=== PATIENT | male | born 1970 | race Caucasian/White ===

== ENCOUNTER 2019-07-07 19:45 | Observation (INO) | payer OTHER, SELFPAY ==
--- NOTE | ~2019-07-07 | XR_ITS ---
EXAMINATION: XR chest 1V portable 07/07/2019 20:24 INDICATION: Right-sided weakness PROCEDURE: AP view of the chest COMPARISON: No prior studies for comparison. FINDINGS: The lungs are clear. The cardiomediastinal silhouette is within normal limits. There are no pleural effusions. There is no pneumothorax suspected. IMPRESSION: 1: NO ACUTE CARDIOPULMONARY DISEASE. Reviewed, dictated and finalized at location A.
--- NOTE | ~2019-07-07 | CT_ITS ---
EXAMINATION: CTA brain carotid DATE: 07/07/2019 22:49 CDT INDICATION: Right-sided weakness TECHNIQUE: Computed tomographic angiography (CTA) of the head was performed without and with 100 mL O mnipaque-350 intravenous contrast. CTA of the neck was performed with intravenous contrast. The dose- length product was 1216.18 mGy-cm. Maximum intensity projection and volume rendered 3D-reconstruction s were created by the technologist on a separate workstation. COMPARISON: CT dated 07/07/2019. FINDINGS: HEAD CTA: There are dominant vertebral arteries. No evidence for aortic aneurysm or significant steno sis the anterior, middle and posterior cerebral arteries are symmetric. The anterior communicating ar vasu is present. NECK CTA: No cervical lymphadenopathy. There is normal course and caliber of the carotid arteries. No significant atherosclerotic change. Lung apices are normal. Thyroid gland is unremarkable. No signif icant osseous abnormality. There is 0% stenosis of the proximal right internal carotid artery relative to normal distal artery l umen diameter (NASCET criteria). There is 0% stenosis of the proximal left internal carotid artery re lative to normal distal artery lumen diameter. IMPRESSION: 1. No significant abnormality of the carotid or intracranial arteries. No significant stenosis, disse ction or aneurysm. Reviewed, dictated and finalized at location A. IMPRESSION: 1. No significant abnormality of the carotid or intracranial arteries. No signi ficant stenosis, dissection or aneurysm.
--- NOTE | ~2019-07-07 | MR_ITS ---
EXAMINATION: MR brain/brain stem wo/w con DATE: 07/08/2019 12:56 INDICATION: Right-sided hemiparesis TECHNIQUE: Magnetic resonance imaging (MRI) of the brain and brainstem was performed without and with 20 mL Multihance intravenous contrast. Sequences included sagittal and axial T1-weighted SE, axial d iffusion-weighted FS SE, axial T2*-weighted GRE, axial T2-weighted FLAIR, and axial T2-weighted FSE. Postcontrast axial and coronal T1-weighted SE was obtained. Apparent diffusion coefficient (ADC) maps were created. COMPARISON: 07/07/2019 FINDINGS: There are no areas of restricted diffusion to suggest acute infarction. No intracranial hemorrhage or abnormal intracranial mass lesion. There are scattered areas of nonspecific increased T2-weighted si gnal intensity in the cerebral white matter, predominantly involving the deep and periventricular whi te matter. There are no intraparenchymal signal abnormalities seen on the other pulse sequences. The ventricles are symmetric and normal in size with normal variant cavum septum pellucidum. There are no abnormal extra-axial fluid collections. Flow voids are seen in the cerebral arteries on the T2-weigh venu sequences consistent with their expected patency. Mild mucosal thickening the bilateral ethmoid a nd maxillary sinuses with mucous retention cyst at the floor of the right maxillary sinus. Visualized orbits and soft tissues are unremarkable. There are no areas of abnormal enhancement on the post con trast images. IMPRESSION: 1. Normal brain. No acute intracranial process or abnormally enhancing lesions. Reviewed, dictated and finalized at location A.
--- NOTE | ~2019-07-07 | CT_ITS ---
EXAMINATION: CT BRAIN W/O DATE: 07/07/2019 20:20 INDICATION: Right-sided weakness TECHNIQUE: Computed tomography (CT) of the head was performed without intravenous contrast. The dose- length product was 681.00 mGy-cm. The mA was adjusted according to patient size. Iterative reconstruc tion technique was employed. COMPARISON: No prior studies for comparison. FINDINGS: Normal brain parenchymal volume for age. Normal nascimento-white differentiation. No acute intrac ranial hemorrhage, infarction, mass or mass effect. No ventriculomegaly or midline shift. Midline sagittal images demonstrate a normal corpus callosum, c raniovertebral junction and sella turcica. Basilar cisterns are patent. Paranasal sinuses and mastoids are pneumatized. No depressed skull fractures. IMPRESSION: 1. No acute intracranial abnormality. Reviewed, dictated and finalized at location A.
[2019-07-07 19:54] LABS: Glucose Point of Care 92 (65-105)
--- NOTE | 2019-07-07 19:57 | ECG_ITS ---
Measurements Intervals [place] Rate: 83 P: 50 ND: 176 QRS: 4 QRSD: 108 T: 48 QT: 350 QTc: 412 Interpretive Statements SINUS RHYTHM BASELINE ARTIFACT- I, V6 NORMAL ECG Electronically Signed On 07-08-2019 7:06:07 CDT by Дмитрий Goff D.O.
[2019-07-07 19:58] VITALS: BP 137/99; PULSE 90; RESP 95; TEMP 36.9; O2SAT 95
--- NOTE | 2019-07-07 19:58 | ED.WEAKNESS ---
HPI - Weakness General Chief complaint: Weakness Stated complaint: Numbness L arm Time Seen by Provider: 07/07/19 19:50 Source: RN notes reviewed History of Present Illness HPI Narrative: Patient presents to emergency department from home for right-sided weakness. Patient states approximately 7 PM after eating dinner he began to experience some numbness and weakness in his right arm as well as some numbness in his right leg. Patient states at that time he called EMS but refused transport because he went to ensure he had a ride home. Patient states he did take six 325 mg aspirins as well as a clove of garlic for his symptoms. He states he did note numbness and his right chest as well as his neck as well he denies any fevers or chills chest pain shortness of breath abdominal pain nausea vomiting or any other symptoms Related Data Home Medications Medication Instructions Recorded Confirmed No Home Medications 07/07/19 07/07/19 Allergies Allergy/AdvReac Type Severity Reaction Status Date / Time No Known Allergies Allergy Verified 07/07/19 20:07 Review of Systems Review of Systems: Narrative: Gen.: Denies fevers or chills Eyes: Denies eye pain or visual change ENT: Denies congestion Respiratory: Denies shortness of breath or cough CV: Denies chest pain or palpitations GI: Denies abdominal pain nausea, emesis or diarrhea Musculoskeletal: Denies back pain or muscle pain Neuro: See HPI Skin: Denies rash Except as documented, all other systems reviewed and negative FOR[facility]LY [facility] Past Medical History Medical History (Updated 07/08/19 @ 00:06 by Perfecto Mcgowan DO) Patient denies significant medical history Social History Social History (Updated 07/07/19 @ 20:02 by Perfecto Mcgowan DO) Smoking status: Never smoker Gender identity (if verbalized by the patient): Male Exam Narrative: Exam Narrative: APPEARANCE: No acute distress, nontoxic, resting in bed HEENT: Normocephalic, atraumatic, OMM, TMs clear bilaterally EYES: PERRL, EOMI NECK: Supple, nontender, full range of motion without pain, no meningismus RESPIRATORY: No respiratory distress, clear to auscultation bilaterally with no rhonchi wheezing or rales CARDIOVASCULAR: RRR s murmur ABDOMINAL: Soft, nontender, nondistended MUSCULOSKELETAL: Moves all extremities. No clubbing, cyanosis or edema. NEURO: A and O ?3, following commands, mild right facial droop, decreased sensation right upper extremity with pinprick compared to left upper extremity muscle strength 5 out of 5 in bilateral upper and lower extremities no pronator drift, normal [id number] bilaterally SKIN:: Warm, dry. Normal Color PSYCHIATRIC: Normal affect/mood Course Course Emergency Course: Had lengthy discussion with patient regarding TPA. All risks and benefits were discussed with the patient. At this time the patient states he does not wish to have TPA. The patient's charge nurse as well as nursing staff were present for this conversation Patient states he is feeling better in room currently using right hand to control and operate cell phone states he still notes mild numbness in right arm Called and discussed Dr. Kaur presentation work-up agrees with admission at this time Discussed with patient and family results of workup and diagnosis. Discussed need for admission. Patient and family understand and agree to current treatment plan Poison control was called for aspirin ingestion recommend 4-hour aspirin level at midnight Vital Signs Vital signs: Vital Signs Temperature 98.5 F 07/07/19 19:58 Pulse Rate 90 07/07/19 19:58 Respiratory Rate 95 H 07/07/19 19:58 Blood Pressure 137/99 H 07/07/19 19:58 Pulse Oximetry 95 07/07/19 19:58 Temperature 98.5 F 07/07/19 19:58 Pulse Rate 74 07/07/19 22:56 Respiratory Rate 20 07/07/19 22:56 Blood Pressure 126/99 H 07/07/19 22:56 Pulse Oximetry 100 07/07/19 22:56 MDM - Weakness Lab Data Result diagrams:
--- NOTE | 2019-07-07 20:13 | PC.NURSE ---
When asking Pt about health history, he states I have had a few small stevenson like Im having today , but he didn't need to come in to the hospital because he cured himself by taking lots of Aspirin and eating tons of Garlic. Pt right side of the face does appear to have a slight drop and right arm seems flaccid. MD aware and assessed. Pt states he just feels weak and numb all over.
[2019-07-07 20:18] LABS: Basophils Percent Auto 0.4 % (0.2-1.2); Eosinophils Absolute Auto 0.1 K/mm3 (0-0.3); Eosinophils Percent Auto 1.2 % (0-4.4); Hematocrit 49.6 % (42.0-52.0); Hemoglobin 17.1 g/dL (14.0-18.0); Immature Granulocyte Absolute 0.02 K/mm3 (0.00-0.031); Immature Granulocyte Percent A 0.2 % (0-0.5); Lymphocytes Absolute Auto 1.46 K/mm3 (0.9-3.2); Lymphocytes Percent Auto 17.9 % (18.3-44.2); Mean Corpuscular HGB Conc 34.5 g/dl (32-36); Mean Corpuscular Hemoglobin 29.5 pg (26-34); Mean Corpuscular Volume 85.5 fl (80-100); Mean Platelet Volume 9.6 fl (7.4-10.4); Monocytes Absolute Auto 0.6 K/mm3 (0.1-0.6); Monocytes Percent Auto 7.2 % (2.6-8.5); Neutrophils Percent Auto 73.1 % (45.5-73.1); Platelet Count Result 272 k/mm3 (150-375); Red Cell Distribution Width 12.4 % (11.5-14.5); White Blood Count 8.2 K/mm3 (4.5-10.0)
[2019-07-07 20:27] LABS: INR 0.9; Prothrombin Time 11.6 Seconds (11.1-14.7)
[2019-07-07 20:28] LABS: Partial Thromboplastin Time 23.7 SECONDS (22.3-36.8)
[2019-07-07 20:29] LABS: Salicylate 13.3 mg/dL (2-20)
--- NOTE | 2019-07-07 20:42 | PC.NURSE ---
This RN present in room with EDP and ED Charge nurse. EDP educated patient's on risk and benefits of receiving TPA as treatment for neurological symptoms. Pt refused TPA treatment at this time.
--- NOTE | 2019-07-07 20:43 | PC.NURSE ---
This RN, along with Dr. Mcgowan & BROOKLYN Summers. Dr. Mcgowan in to discuss TPA, risks & benefits, patient refuses TPA.
[2019-07-07 20:50] VITALS: BP 126/89; PULSE 83; O2SAT 97
--- NOTE | 2019-07-07 20:55 | PC.NURSE ---
Pt given education about receiving TPA due to possible stroke from this RN and MD Fine. Pt states he took enough aspirin, garlic, and drank enough vinegar water and refused medication.
[2019-07-07 21:43] LABS: Blood Urea Nitrogen 19 mg/dL (9-20); Calcium 9.4 mg/dL (8.4-10.2); Carbon Dioxide 22 mmol/L (22-30); Chloride 107 mmol/L (98-107); Estimated CRCL calculation 112 ml/min; Estimated Glomerular Filt Rate > 60; Glucose 102 mg/dL (75-110); Potassium 4.2 mmol/L (3.4-5.0); Sodium 139 mmol/L (137-145)
[2019-07-07 21:53] LABS: Troponin I < 0.012 ng/mL (0.000-0.034)
[2019-07-07 22:56] VITALS: BP 126/99; PULSE 74; RESP 20; O2SAT 100
--- NOTE | 2019-07-07 23:16 | PC.NURSE ---
A call was placed to Poison control, spoke with BROOKLYN Khan. She states to obtain two Salicylate levels on Pt. She also states in order for levels to become dangerous Pt must meet 150mg per kg for a max of 7grams before a possible overdose. First Salicylate level from 1999 was given of 13.3 to BROOKLYN Khan. updated.
[2019-07-08] VITALS (9 sets, daily range): BP systolic 105–141; BP diastolic 71–99; PULSE 55–86; RESP 14–20; TEMP 36.2–36.3; O2SAT 96–100; BMI 28.3
[2019-07-08 02:40] LABS: Salicylate 12.8 mg/dL (2-20)
[2019-07-08 02:52] LABS: Troponin I < 0.012 ng/mL (0.000-0.034)
--- NOTE | 2019-07-08 03:36 | ADMGEN ---
This patient, Jim Desir, was admitted to 2 Medical Room 259-01. Patient/family oriented to hospital policies and general routines including ID bracelet, bed and alarms, visiting hours, pain management, procedures, bathroom and other care routines, personal items, smoking policy, room service/diet, and visiting hours. Valuables list has been completed. Information on how to activate the Rapid Response Team has been discussed. Patient/Family are encouraged to report perceived risks to care and to ask questions if they do not understand what they are told or what they should do.
[2019-07-08 05:33] LABS: Basophils Percent Auto 0.4 % (0.2-1.2); Eosinophils Absolute Auto 0.1 K/mm3 (0-0.3); Eosinophils Percent Auto 1.1 % (0-4.4); Hematocrit 47.9 % (42.0-52.0); Hemoglobin 16.2 g/dL (14.0-18.0); Immature Granulocyte Absolute 0.02 K/mm3 (0.00-0.031); Immature Granulocyte Percent A 0.2 % (0-0.5); Lymphocytes Absolute Auto 2.11 K/mm3 (0.9-3.2); Lymphocytes Percent Auto 24.6 % (18.3-44.2); Mean Corpuscular HGB Conc 33.8 g/dl (32-36); Mean Corpuscular Volume 85.7 fl (80-100); Mean Platelet Volume 9.2 fl (7.4-10.4); Monocytes Absolute Auto 0.6 K/mm3 (0.1-0.6); Monocytes Percent Auto 6.8 % (2.6-8.5); Neutrophils Absolute Auto 5.7 K/mm3 (1.3-6.7); Neutrophils Percent Auto 66.9 % (45.5-73.1); Platelet Count Result 236 k/mm3 (150-375); Red Blood Count 5.59 M/mm3 (4.6-6.20); Red Cell Distribution Width 12.3 % (11.5-14.5); White Blood Count 8.6 K/mm3 (4.5-10.0)
[2019-07-08 05:44] LABS: Blood Urea Nitrogen 14 mg/dL (9-20); Calcium 8.9 mg/dL (8.4-10.2); Carbon Dioxide 24 mmol/L (22-30); Chloride 103 mmol/L (98-107); Estimated CRCL calculation 119 ml/min; Estimated Glomerular Filt Rate > 60; Glucose 93 mg/dL (75-110); Potassium 3.6 mmol/L (3.4-5.0); Sodium 137 mmol/L (137-145)
[2019-07-08 05:56] LABS: Troponin I < 0.012 ng/mL (0.000-0.034)
--- NOTE | 2019-07-08 06:46 | PM.IMHP ---
H&P: HPI History of Present Illness Chief complaint: Right arm numbness Narrative: Date and time of patient contact: 07/08/2019 at 4:30 a.m. Jim Desir is a 48 year old male without significant diagnosed past medical history who presented to the ER with right arm numbness. He reported that he had just of a double steak burger from [facility] at around 630 or 7:00 p.m.. He felt bloated and uncomfortable so he went and lay down. When he laid down he almost immediately noticed that his right arm was numb and felt as if it was asleep. He felt as if the arm was weak for about 30 seconds to a minute but then was able to move it. He relates the sensation as similar to when every fall asleep under arm in the wrong position. He had reported some numbness to his right leg to the ER staff but actually denied having right leg numbness or weakness that occurred at the time of my evaluation. He reported that he was able to get up out of the bed and take a relatively brisk walk. He felt that if he walks around he could walk the symptoms off. He immediately took 6 325 mg tablets of aspirin. He also ate 3 garlic close and drank some diluted vinegar solution. He reported that his symptoms resolved. He had also reported some numbness to his right chest and neck to the ER staff but denied having numbness in these areas when I asked him about his initial presenting symptoms. He denies any difficulty speaking in fact he immediately got on the phone with his brother who lives in [place] and was having his normal speech. He reported that when he started having the right arm numbness he also felt lightheaded as if he may pass out. He stated ?I felt as if I was 40% of the way to passing out.? He also reported feeling overwhelmingly weak. He reports that he still feels weak. Nursing staff told me that when the patient arrived to the floor he was pacing back and forth in his room rapidly. The patient had denied having any difficulty speaking when all of these incidence occurred when I was questioning him. However he reported to the ER staff that he thought his speech was slurred at the onset of symptoms. The patient reported that his brother (who lives in [place]) became concerned and called EMS and asked them to goes the patient's house. The patient refused transport to the ER because he wanted to have a ride to come home. He then came to the ER a little bit later. The triage nurse reported that the patient's face was drooping on arrival to the ER. The patient reported he felt as if he was running on ?half capacity.? He had no localizing neurologic deficits at the time of my evaluation except for some subjective paresthesias to the right arm. He did report that he had some ?cold symptoms? in his right side of his neck couple of weeks ago but denies any chronic neck pain. He was offered tPA in the ER but he denied at that time. After the patient arrived on the medical floor several hours later that he wanted tPA when he was outside the tPA window. He was also telling nursing staff that he thought he may have had a heart attack. The patient had 3 sets of cardiac enzymes that are negative. He is certain that he is having a lot of anxiety. However he is very adamant that he absolutely could not have been having a panic attack. In the next sentence the patient reports how worried a his about the COVID-19 pandemic and his current stress level with his job. The patient also admits that he has been taking 2-3 full-dose aspirin every day. He reports that this is his usual aspirin regimen. He takes the aspirin for the occasional headache and if he is having other bodily discomforts. He reports that he has heartburn symptoms and frequent indigestion. He does admit to eating a almost constant supply of a high fat fast food diet. He has been taking homeopathic remedies for his heartburn. He is certain that he has gluten and tolerance as he becomes quite bloated w
[2019-07-08] MEDS: FAMOTIDINE 20 MG TABLET PO (09:39)
[2019-07-08] MEDS: EUCERIN CREAM 120 GM JAR 1 APPLIC TOPICAL (09:39)
--- NOTE | 2019-07-08 12:17 | PC.NURSE ---
Patient to MRI per wheelchair.
--- NOTE | 2019-07-08 12:59 | PC.NURSE ---
Patient return from MRI.
--- NOTE | 2019-07-08 16:02 | PM.DS ---
DS: Admitting Diagnosis Admitting Diagnosis Admitting Diagnosis: Anesthesia of skin DS: Discharge Diagnosis Discharge Diagnosis (1) Right arm numbness: Code(s): R20.0 - Anesthesia of skin Status: Acute Assessment and Plan: Head CT revealed no acute abnormalities. CTA head/neck displayed 0% stenosis in bilateral internal carotid arteries and no significant abnormalities. MRI was performed and revealed normal brain with no acute infarct or hemorrhage or abnormally enhancing lesions. His electrolytes and vital signs remained stable. Differential diagnoses for his transient numbness include nerve impingement or anxiety. I believe he will benefit from an EMG and nerve conduction study as an outpatient. I also believe he will benefit from overall stress reduction. He will follow-up with his primary care provider in 1 week. (2) Anxiety: Code(s): F41.9 - Anxiety disorder, unspecified Status: Acute Assessment and Plan: He has a very anxious affect. He admits to experiencing a great deal of stress in his daily life. We discussed mechanisms for reducing stress and I believe that will improve his symptoms. I strongly believe he will benefit from a long-acting anxiety medication at the discretion of his PCP. (3) Heartburn symptom: Code(s): R12 - Heartburn Status: Acute Assessment and Plan: Patient uses aspirin regularly as well as eats fast food regularly. I believe that his symptoms will improve with dietary and lifestyle modifications. He was counseled on limiting aspirin and NSAID use. He will continue Pepcid as needed for indigestion. DS: Summary Hospital Course Reason for hospitalization: Right arm numbness Hospital Course: Date of admission: 07/07/2019 Date of discharge: 07/08/2019 Jim Desir is a healthy 48-year-old male who presented to the emergency department on 07/07/2019 after complaining of right-sided weakness and numbness that occurred for approximately 30 seconds to 1 minute. He then attempted to walk around to ?walk his symptoms off and then he felt lightheaded, however he did not ever lose consciousness. He took six 325 mg aspirin tablets because he was concerned he was having a stroke. He also ate 3 close of garlic and drank vinegar to improve his symptoms. He felt an overall sense of weakness. At presentation to the facility, he had no obvious focal neuro deficits, CBC and BMP within normal limits, troponins <0.012 and flat, salicylate level 13.3, and EKG normal. Head CT, head/neck CTA, and brain MRI were performed as described above with no acute findings. His numbness resolved. He had 5/5 strength and full range of motion. His neuro exam was unremarkable. Given his overall improvement and lack of acute findings, he was determined to no longer require inpatient care. He was very anxious and requested to test each of his organ systems to determine the possible cause of his symptoms. As noted above, I suspect that his symptoms may be related to a non acute cause such as nerve impingement. I do believe that he will benefit from an EMG as an outpatient. He also may benefit from a referral to a neurologist as an outpatient at the discretion of his PCP. Additionally, given his extremely anxious and overall odd affect as well as his pressured speech, he may benefit from psychiatric evaluation. I spent a significant time counseling him on lifestyle modifications and mechanisms to reduce stress in his daily life. We discussed worrisome signs and symptoms for which to return and all of his questions were answered. He was discharged home in hemodynamically stable condition on 07/08/2019. Status at Discharge Functional status at discharge: independent ambulation Overall status at discharge: patient is back to baseline Time Spent with Patient Time attestation: Total time spent providing and/or coordinating discharge services: 41 minutes Time spent: Danyel
== END 2019-07-08 16:21 | disposition home or self-care (01) ==
LOC: ANHED 22:47 → ANH2MED 23:57
PROVIDERS: Admitting Provider Internal Medicine; Emergency Provider Emergency Medicine; PCP Emergency Medicine; Visit Provider Internal Medicine
DX: R20.0 Anesthesia of skin (principal); R53.1 Weakness; F41.9 Anxiety disorder, unspecified; R12 Heartburn; Z79.82 Long term (current) use of aspirin; Z87.891 Personal history of nicotine dependence
CPT/HCPCS: 36415; 70450; 70496; 70498; 70553; 71045; 80048; 80307; 82948; 84484; 85025; 85610; 85730; 93005; 99285; A9270; A9577; G0378; G0379; Q9967

== ENCOUNTER 2019-07-20 00:50 | Emergency (ER) | payer OTHER, SELFPAY ==
--- NOTE | ~2019-07-20 | CT_ITS ---
EXAMINATION: CT cervical spine w con, CT thoracic lumbar w con DATE: 07/20/2019 03:09 INDICATION: Pain and weakness in the upper extremities TECHNIQUE: Computed tomography (CT) of the cervical, thoracic and lumbar spine was performed with 100 mL Omnipaque-350 intravenous contrast. Automated exposure control and iterative reconstruction techn ique were employed. The dose-length product for the combined procedures was was 2471.26mGy-cm. COMPARISON: None FINDINGS: Cervical spine: Mild levocurvature in the lower cervical spine and straightening of the normal lordosis in the mid to upper cervical spine. Vertebral body heights are normal. No fracture. Moderate disc height loss with posterior endplate osteophytes at C5-C6. Mild disc height loss at remaining levels between C3-C4 and C7-T1. Cervical soft tissues are unremarkable. No abnormally enhancing lesions or epidural fluid col lections. The following disc levels are specifically discussed: C2-C3: The disc does not extend beyond the endplate margin. There is mild bilateral uncovertebral tara nt osteoarthritis. There is mild right and mild to moderate left facet joint osteoarthritis. There is no neural foraminal stenosis. There is no central canal stenosis. C3-C4: Asymmetric to the right posterior disc osteophyte complex There is mild left and moderate righ t uncovertebral joint osteoarthritis. There is minimal right and mild left facet joint osteoarthritis . There is moderate right neural foraminal stenosis. There is mild central canal stenosis. C4-C5: The disc does not extend beyond the endplate margin. There is minimal bilateral uncovertebral joint osteoarthritis. There is minimal bilateral facet joint osteoarthritis. There is no neural conner inal stenosis. There is no central canal stenosis. C5-C6: Asymmetric to the right posterior disc osteophyte complex. There is severe bilateral uncoverte bral joint osteoarthritis. There is mild bilateral facet joint osteoarthritis. There is mild left and mild to moderate right neural foraminal stenosis. There is mild central canal stenosis. C6-C7: Suggestion of asymmetric to the left disc bulge. There is minimal bilateral uncovertebral join t osteoarthritis. There is minimal bilateral facet joint osteoarthritis. There is no neural foraminal stenosis. There is mild central canal stenosis. C7-T1: The disc does not extend beyond the endplate margin. There is mild right and minimal left unco vertebral joint osteoarthritis. There is mild bilateral facet joint osteoarthritis. There is no neura l foraminal stenosis. There is no central canal stenosis. Thoracic spine: Alignment is normal. Vertebral body heights are normal. No fracture. Moderate disc height loss at T3- T4, T9-T10 and T10-T11 and mild disc height loss at the remaining thoracic levels relatively sparing T2-T3. Minimal to mild multilevel bilateral thoracic facet osteoarthritis. Mild bilateral neural fora dex stenosis at T9-T10 and T10-T11. No central canal stenosis. No abnormally enhancing lesions or e pidural fluid collections. Mosaic attenuation in the dependent lungs likely related to mild atelectas is related to expiratory phase of imaging with subsegmental regions of mild air trapping related to s mall airway disease. Visualized portions of the heart and mediastinum are unremarkable. Thoracic aort a is normal in caliber with no dissection. Lumbar spine: Alignment is normal. Vertebral body heights are normal. No fracture. Disc heights are normal. Mild di sc bulges resulting in minimal to mild central canal and neural foraminal stenosis at L2-L3 through L 5-S1. Multilevel mild bilateral facet osteoarthritis throughout the lumbar spine. No abnormally enhan cing lesions were epidural fluid collections. 1.5 cm low-attenuation left renal cyst. Visualized port ions of the bladder and bowels including the appendix appear normal. Abdominal aorta is
--- NOTE | 2019-07-20 01:02 | ED.GENADULT ---
HPI - General Adult General Chief complaint: Extremity Injury, Upper Stated complaint: bilat arm numbness Time Seen by Provider: 07/20/19 01:01 Source: patient Mode of arrival: ambulatory Limitations: no limitations History of Present Illness HPI narrative: Patient is a 48-year-old male who presents to the emergency department for evaluation of bilateral arm weakness. Patient states he was recently admitted to the hospital for this and had a stroke work-up done which was negative. Patient states he is here seeking a second opinion for his symptoms. Patient reports numbness in his left arm that began yesterday. He reports intact strength, he is able to write, no difficulty with quality control head strength. Patient reports pain in his back that he attributes to a brown recluse spider bite, states he is worried it is infected and that he has a spinal infection. Patient has had no fever, chills, weakness in his lower extremities, saddle anesthesia. Patient states initial spider bite occurred 3 months ago. Of note, patient is very anxious appearing, affect with mildly pressured speech. Patient seems fixated on a infection in his spine. Related Data Home Medications Medication Instructions Recorded Confirmed No Home Medications 07/07/19 07/07/19 Allergies Allergy/AdvReac Type Severity Reaction Status Date / Time No Known Allergies Allergy Verified 07/08/19 10:52 Review of Systems Review of Systems: Narrative: CONSTITUTIONAL: Denies fever, chills, or sweats. ENT: Denies rhinorrhea, congestion, sore throat, or otalgia. CARDIOVASCULAR: Denies chest pain, palpitations, or edema. RESPIRATORY: Denies cough or dyspnea. GASTROINTESTINAL: Denies abdominal pain, nausea, vomiting, or diarrhea. GENITOURINARY: Denies dysuria or hematuria. SKIN: Denies rash or itching. MUSCULOSKELETAL: Denies back pain, joint pain, or myalgia. 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 Gender identity (if verbalized by the patient): Male Exam Narrative: Exam Narrative: GENERAL: Awake, alert, conversant HEAD: Normocephalic, atraumatic. EYES: PERRLA and EOMI. ENT: Nares clear, no rhinorrhea or epistaxis. Mucous membranes moist. NECK: Supple. CHEST: No respiratory distress, breathing even and non labored HEART: Regular rate, sinus rhythm ABDOMEN:Non distended, non tender EXTREMITIES: Normal range of motion. No edema. Thorax: No cervical midline tenderness. Positive midline thoracic tenderness. There is a 3 cm x 4 cm area of erythema of the left thoracic paraspinal musculature which is edematous, no excoriation, no abscess or drainage. Intact sensation m/u/r nerve distribution bilateral upper extremities. Ager Tender strength 5/5 bilaterally. Cap refill less than 3 seconds bilaterally. SKIN: Warm, dry NEURO:No focal deficits. Alert and oriented x3. EOMs intact without nystagmus. No facial droop/asymmetry noted bilaterally. Grimace intact. Intact sensation in face. Hearing intact bilaterally. Shoulder shrug intact. Strength 5/5 bilateral upper extremities. Strength 5/5 bilateral lower extremities. Reflexes 2+ patellar. Heel to bradford intact bilaterally. Ambulatory with a narrow-based, steady gait, no ataxia. Course Course Emerg
[2019-07-20 01:05] VITALS: BP 136/93; PULSE 90; RESP 18; TEMP 36.8; O2SAT 99
--- NOTE | 2019-07-20 01:11 | ECG_ITS ---
Measurements Intervals [place] Rate: 86 P: 56 GA: 170 QRS: -8 QRSD: 104 T: 53 QT: 358 QTc: 430 Interpretive Statements SINUS RHYTHM BASELINE ARTIFACT- I, II, III, AVR, AVL NORMAL ECG Electronically Signed On 07-20-2019 7:07:59 CDT by Дмитрий Goff D.O.
[2019-07-20 02:06] VITALS: BP 132/82; PULSE 71; RESP 16; O2SAT 98
[2019-07-20 02:07] LABS: Basophils Percent Auto 0.4 % (0.2-1.2); Eosinophils Absolute Auto 0.1 K/mm3 (0-0.3); Eosinophils Percent Auto 1.3 % (0-4.4); Hematocrit 49.7 % (42.0-52.0); Hemoglobin 17.1 g/dL (14.0-18.0); Immature Granulocyte Absolute 0.01 K/mm3 (0.00-0.031); Immature Granulocyte Percent A 0.1 % (0-0.5); Lymphocytes Absolute Auto 1.92 K/mm3 (0.9-3.2); Lymphocytes Percent Auto 25.9 % (18.3-44.2); Mean Corpuscular HGB Conc 34.4 g/dl (32-36); Mean Corpuscular Hemoglobin 29.3 pg (26-34); Mean Corpuscular Volume 85.1 fl (80-100); Mean Platelet Volume 10.1 fl (7.4-10.4); Monocytes Absolute Auto 0.5 K/mm3 (0.1-0.6); Monocytes Percent Auto 6.2 % (2.6-8.5); Neutrophils Absolute Auto 4.9 K/mm3 (1.3-6.7); Neutrophils Percent Auto 66.1 % (45.5-73.1); Platelet Count Result 266 k/mm3 (150-375); Red Blood Count 5.84 M/mm3 (4.6-6.20); Red Cell Distribution Width 12.4 % (11.5-14.5); White Blood Count 7.4 K/mm3 (4.5-10.0)
[2019-07-20 02:20] LABS: Blood Urea Nitrogen 19 mg/dL (9-20); Carbon Dioxide 25 mmol/L (22-30); Chloride 102 mmol/L (98-107); Estimated Glomerular Filt Rate > 60; Glucose 100 mg/dL (75-110); Potassium 3.9 mmol/L (3.4-5.0); Sodium 137 mmol/L (137-145)
[2019-07-20 02:23] LABS: CRP < 0.5 mg/dL (<1.0)
[2019-07-20 02:40] LABS: Erythrocyte Sedimentation Rate 1 mm/hr (0-20)
[2019-07-20 03:23] VITALS: BP 129/85; PULSE 79; RESP 19; O2SAT 98
[2019-07-20 04:05] VITALS: BP 126/92; PULSE 67; RESP 23; O2SAT 98
== END 2019-07-20 04:05 | disposition home or self-care (01) ==
PROVIDERS: Emergency Provider Emergency Medicine; PCP Emergency Medicine
DX: R20.2 Paresthesia of skin (principal); Z87.891 Personal history of nicotine dependence; M47.812 Spondylosis without myelopathy or radiculopathy, cervical region; M47.814 Spondylosis without myelopathy or radiculopathy, thoracic region; M47.816 Spondylosis without myelopathy or radiculopathy, lumbar region
CPT/HCPCS: 36415; 72126; 72129; 72132; 80048; 85025; 85652; 86140; 93005; 99284; Q9967

== ENCOUNTER 2019-09-13 15:54 | Emergency (ER) | payer OTHER, SELFPAY ==
[2019-09-13 16:13] VITALS: BP 117/79; PULSE 71; RESP 20; TEMP 36.3; O2SAT 98
--- NOTE | 2019-09-13 16:18 | ED.SKABFB ---
HPI - Skin/Abscess/Foreign Bdy General Chief complaint: Skin/Abscess/Foreign Body Stated complaint: Infected Toe/back pain Time Seen by Provider: 09/13/19 16:19 Source: patient Mode of arrival: ambulatory Limitations: no limitations History of Present Illness HPI narrative: 48 year old male who presents to [facility] care with complaints of injury to his right great toe 3 days ago when he stubbed his right great toe on the stove. Patient has some redness noted to the distal aspect of his right great toe with small superficial wound to end of right great toe, patient is concerned that he may get infection in his toe. He states also that he got a spider bite on his back about 3 weeks ago and he got antibiotics from his doctor on August 29 and he finished them. MD complaint: laceration (superficial to end of right great toe) and insect bite/sting (to his mid back minimal 0.5 cm area redness no open wound) Onset (ago): day(s) (3) Tetanus up to date: yes Location: R foot (great toe) Severity: mild Severity scale (1-10): 2 Quality: sharp Pain Consistency: intermittent Relieving factors: none Exacerbating factors: movement Context: other (stubbed right great toe) Treatments prior to arrival: OTC topical medication and other (soaked) Related Data Allergies Allergy/AdvReac Type Severity Reaction Status Date / Time No Known Allergies Allergy Verified 09/13/19 16:15 Review of Systems Review of Systems: Narrative: CONSTITUTIONAL: Denies fever, chills, or sweats. EYES: Denies visual changes, redness, or discharge. ENT: Denies rhinorrhea, congestion, sore throat, or otalgia. CARDIOVASCULAR: Denies chest pain, palpitations, or edema. RESPIRATORY: Denies cough or dyspnea. GASTROINTESTINAL: Denies abdominal pain, nausea, vomiting, or diarrhea. GENITOURINARY: Denies dysuria or hematuria. SKIN: Denies rash or itching. MUSCULOSKELETAL: Denies back pain, joint pain, or myalgia, pain to distal aspect of right great toe where superficial laceration and some redness to distal toe. NEUROLOGIC: Denies headache, numbness, or weakness. PSYCHIATRIC: Denies anxiety or depression. All systems reviewed & are unremarkable except as noted in HPI and below PMFSH Past Medical History Medical History (Updated 09/13/19 @ 17:32 by Sara Gill NP) Anxiety TIA (transient ischemic attack) Surgical History Surgical History No history of previous surgery Family History Family History Mother Ovarian ca Father COPD (chronic obstructive pulmonary disease) Social History Social History Smoking status: Former smoker Tobacco type: cigarettes Second hand tobacco smoke exposure: Yes Additional smoking assessment comments: pt states that he only smoked from time to time and quit many years ago Alcohol intake: never Substance use: never Substance use type: does not use Additional occupation/education comments: 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 Gender identity (if verbalized by the patient): Male Comments At time of signature, agree with nursing past medical, surgical, social and family history. There is no relevant family history pertinent to the presenting complaint Exam Narrative: Exam Narrative: GENERAL: Well-appearing, well-nourished, and in no acute distress. HEAD: Normocephalic, atraumatic. EYES: PERRLA and EOMI. ENT: Nares clear, no rhinorrhea or epistaxis. Mucous membranes moist. NECK: Supple. CHEST: Clear to auscultation. No respiratory distress. HEART: Regular rate and rhythm. No murmur heard. Normal peripheral pulses. ABDOMEN: Soft, nontender, nondistended, normal active bowel sounds. EXTREMITIES: Normal range of motion. No edema Some redness with superficial laceration to the distal aspect of his right great toe, no drainage or warmth, strong peda
== END 2019-09-13 16:40 | disposition home or self-care (01) ==
PROVIDERS: Emergency Provider Registered Nurse; PCP Emergency Medicine
DX: S30.860D Insect bite (nonvenomous) of lower back and pelvis, subsequent encounter (principal); L03.031 Cellulitis of right toe; Z86.73 Personal history of transient ischemic attack (TIA), and cerebral infarction without residual deficits; Z87.891 Personal history of nicotine dependence; W57.XXXD Bitten or stung by nonvenomous insect and other nonvenomous arthropods, subsequent encounter
CPT/HCPCS: 99213; G0463

== ENCOUNTER 2019-09-21 17:50 | Emergency (ER) | payer OTHER, SELFPAY ==
[2019-09-21 17:59] VITALS: BP 121/81; PULSE 74; RESP 20; TEMP 36.2; O2SAT 98
--- NOTE | 2019-09-21 17:59 | ED.GENADULT ---
HPI - General Adult General Chief complaint: Unspecified Stated complaint: pos skin infection/pos kidney infection Time Seen by Provider: 09/21/19 17:59 Source: patient and RN notes reviewed Mode of arrival: ambulatory Limitations: no limitations History of Present Illness HPI narrative: 49-year-old male who presents to [facility] care with complaints of having low back pain,which he thinks he has a kidney infection. He denies any burning or pain with urination, denies any fevers, chills or sweats. Patient also wanting to have a refill on Bactroban ointment which he received on 09/13/2019 for abrasion to the distal aspect of his right great toe. He was also given Keflex at the time but he states that he only recently started the medication and had only taken 3 days worth of the medication. Patient was at [employer] earlier today to give a urine specimen but left. Patient states that his pain is in the right lower back non radiating with no tingling or numbness to his legs. MD complaint: back pain, healing wound right distal great toe Onset (ago): day(s) (3 days increased but has had back pain intermittently for a long time) Location: back (lower right) Radiation: non-radiation Severity: mild Severity scale (1-10): 4 Quality: aching Pain Consistency: intermittent Relieving factors: none Exacerbating factors: none Associated symptoms: other (urinary frequency for 1 day) Treatments prior to arrival: other (took 3 days of antibiotic that was ordered on 09/13/2019 for his toe) Related Data Allergies Allergy/AdvReac Type Severity Reaction Status Date / Time No Known Allergies Allergy Verified 09/21/19 17:54 Review of Systems Review of Systems: Narrative: CONSTITUTIONAL: Denies fever, chills, or sweats. EYES: Denies visual changes, redness, or discharge. ENT: Denies rhinorrhea, congestion, sore throat, or otalgia. CARDIOVASCULAR: Denies chest pain, palpitations, or edema. RESPIRATORY: Denies cough or dyspnea. GASTROINTESTINAL: Denies abdominal pain, nausea, vomiting, or diarrhea. GENITOURINARY: Denies dysuria or hematuria, states frequency. SKIN: Denies rash or itching. MUSCULOSKELETAL: States low back pain on the right side non radiating,no joint pain, or myalgia. NEUROLOGIC: Denies headache, numbness, or weakness. PSYCHIATRIC: Positive anxiety denies depression. All systems reviewed & are unremarkable except as noted in HPI and below PMFSH Past Medical History Medical History (Updated 09/22/19 @ 08:35 by Sara Gill NP) Anxiety GERD (gastroesophageal reflux disease) TIA (transient ischemic attack) Surgical History Surgical History No history of previous surgery Social History Social History Smoking status: Former smoker Tobacco type: cigarettes Second hand tobacco smoke exposure: Yes Additional smoking assessment comments: pt states that he only smoked from time to time and quit many years ago Alcohol intake: never Substance use: never Substance use type: does not use Additional occupation/education comments: 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 Gender identity (if verbalized by the patient): Male Comments At time of signature, agree with nursing past medical, surgical, social and family history. There is no relevant family history pertinent to the presenting complaint Exam Narrative: Exam Narrative: GENERAL: Well-appearing, well-nourished, and in no acute distress. HEAD: Normocephalic, atraumatic. EYES: PERRLA and EOMI. ENT: Nares clear, no rhinorrhea or epistaxis. Mucous membranes moist. NECK: Supple.no lymphadenopathy CHEST: Clear to auscultation. No respiratory distress.SAO2 98% on room air HEART: Regular rate and rhythm. No murmur heard. Normal peripheral pulses. ABDOMEN: Soft, nontender, nondistended, normal active bowel sounds. EXTREMITIES: Normal range of motion. No ed
== END 2019-09-21 18:22 | disposition home or self-care (01) ==
PROVIDERS: Emergency Provider Registered Nurse; PCP Emergency Medicine
DX: M54.5 Low back pain (principal); S90.411D Abrasion, right great toe, subsequent encounter; X58.XXXD Exposure to other specified factors, subsequent encounter; Z87.891 Personal history of nicotine dependence; K21.9 Gastro-esophageal reflux disease without esophagitis; Z86.73 Personal history of transient ischemic attack (TIA), and cerebral infarction without residual deficits
CPT/HCPCS: 81003; 99213; G0463

== ENCOUNTER 2019-09-21 22:09 | Emergency (ER) | payer OTHER, SELFPAY ==
[2019-09-21 22:16] VITALS: BP 136/82; PULSE 78; RESP 18; TEMP 36.1; O2SAT 100
--- NOTE | 2019-09-21 22:33 | ED.MALEGU ---
HPI - Male Genitourinary General Chief complaint: Urogenital-Male Stated complaint: urinary frequency w/ low back pain Time Seen by Provider: 09/21/19 22:33 History of Present Illness HPI Narrative: Urinary frequency today and low back pain for a long time. He is concerned that he may have a kidney infection. No fever, nausea, vomiting, dysuria. Related Data Allergies Allergy/AdvReac Type Severity Reaction Status Date / Time No Known Allergies Allergy Verified 09/21/19 17:54 Review of Systems Review of Systems: All systems reviewed & are unremarkable except as noted in HPI and below Constitutional: Constitutional: Denies fever(s) Cardiovascular: Cardiovascular: Denies chest pain Respiratory: Respiratory: Denies dyspnea Gastrointestinal: Gastrointestinal: Denies abdominal pain and Denies nausea Genitourinary: Genitourinary: Denies hematuria, Denies dysuria and Reports urinary frequency Musculoskeletal: Musculoskeletal: Reports back pain Neurologic: Denies weakness [facility] Past Medical History Medical History Anxiety TIA (transient ischemic attack) Surgical History Surgical History No history of previous surgery Family History Family History Mother Ovarian ca Father COPD (chronic obstructive pulmonary disease) Social History Social History Smoking status: Former smoker Tobacco type: cigarettes Second hand tobacco smoke exposure: Yes Additional smoking assessment comments: pt states that he only smoked from time to time and quit many years ago Alcohol intake: never Substance use: never Substance use type: does not use Additional occupation/education comments: 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 Gender identity (if verbalized by the patient): Male Exam Const: General: healthy appearing, no acute distress and alert HENMT: Head: normal to inspection Resp: Effort & Inspection: normal respiratory effort Auscultation: clear to auscultation bilaterally Cardio: Rate: regular rate Rhythm: regular rhythm GI: GI Palp: Yes Soft to palpation and No Tenderness to palpation present (GI) : General: Yes no CVA tenderness Skin: General skin exam: normal color Neuro: General: patient oriented x3 Speech: normal speech Gait exam (Neuro): Normal gait present Extrem: General: normal to inspection Course Vital Signs Vital signs: Vital Signs Temperature 36.1 C L 09/21/19 22:16 Pulse Rate 78 09/21/19 22:16 Respiratory Rate 18 09/21/19 22:16 Blood Pressure 136/82 09/21/19 22:16 Pulse Oximetry 100 09/21/19 22:16 Temperature 36.8 C 09/21/19 23:22 Pulse Rate 78 09/21/19 23:54 Respiratory Rate 19 09/21/19 23:54 Blood Pressure 131/78 09/21/19 23:54 Pulse Oximetry 99 09/21/19 23:54 MDM - Male Genitourinary MDM Narrative Medical decision making narrative: He has had recent imaging of the back and does not have any indication for additional studies. UA negative. Medical Records Attestation: I reviewed the patient's medical records. Lab Data Attestation: I reviewed the patient's lab results. Labs: Lab Results 09/21/19 Range/Units 22:34 Urine Color Yellow (Yellow) Urine Appearance Clear (Clear) Urine pH 6.0 (5.0-9.0) Ur Specific [place] 1.017 (1.001-1.035) Urine Protein Negative (Negative) mg/dL Urine Glucose (UA) Negative (Negative) mg/dL Urine Ketones Negative (Negative) mg/dL Ur Blood (Man) Negative (Negative) Urine Nitrate Negative (Negative) Urine Bilirubin Negative (Negative) Urine Urobilinogen Negative (<2.0) mg/dL Leukocyte Esterase Rfl Negative (Negative) OLLIE/UL Urine Characteristics Cloudy Discharge Plan Discharge Clinic
[2019-09-21 22:43] LABS: Add Urine Microscopic? NO; Appearance Urine Clear (Clear); Bilirubin Urine Negative (Negative); Blood Urine Negative (Negative); Color Urine Yellow (Yellow); Glucose Urine UA Negative (Negative); Ketones Urine Negative (Negative); Leukocyte Esterase Ur Negative LEU/UL (Negative); Nitrate Urine Negative (Negative); Protein Urine Negative (Negative); Specific Grav Ur 1.017 (1.001-1.035); Urobilinogen Urine Negative mg/dL (<2.0)
[2019-09-21 23:22] VITALS: BP 111/84; PULSE 70; RESP 19; TEMP 36.8; O2SAT 95
--- NOTE | 2019-09-21 23:22 | PC.NURSE ---
Assumed care of pt at this time. report from BR[place]N Solomon
[2019-09-21] MEDS: KETOROLAC (*BKC) 60 MG/2 ML VIAL IM (23:47)
[2019-09-21 23:54] VITALS: BP 131/78; PULSE 78; RESP 19; O2SAT 99
== END 2019-09-21 23:55 | disposition home or self-care (01) ==
PROVIDERS: Emergency Provider Emergency Medicine; PCP Emergency Medicine
DX: M54.5 Low back pain (principal)
CPT/HCPCS: 81003; 96372; 97110; 97140; 99283; J1885

== ENCOUNTER 2019-10-31 14:36 | Emergency (ER) | payer OTHER, SELFPAY ==
[2019-10-31 14:40] VITALS: BP 117/79; PULSE 66; RESP 12; TEMP 36.7; O2SAT 97
--- NOTE | 2019-10-31 14:50 | ED.SKABFB ---
HPI - Skin/Abscess/Foreign Bdy General Chief complaint: Skin/Abscess/Foreign Body Stated complaint: infection Source: patient and RN notes reviewed Limitations: no limitations History of Present Illness HPI narrative: The patient, who is been on previous mood medicines, presents with skin eruption. Patient and chart review indicates he has a prior recent history of paronychia of his toe, that was treated with Keflex. He now has 1/2-week history of pink, raised rash on his right trunk that seems to be developing central pimple/vesicle, he attributes to using contaminated skin cream. No fever, drainage, streaking; symptoms are mild, worse with scratching, and has slightly improved in size spontaneously Related Data Allergies Allergy/AdvReac Type Severity Reaction Status Date / Time No Known Allergies Allergy Verified 09/21/19 17:54 Review of Systems Review of Systems: Narrative: General/Constitutional: No weight loss,fever Eyes: N0: Redness,discharge Ears/Nose/Throat: No: Epistaxis,ear discharge Respiratory: Denies: Hemoptysis Gastrointestinal: No Vomiting, Bleeding-rectal Skin: No Lumps, REPORTS eruption Neurologic: No Focal Weakness,Sz Hematologic: Denies: Petechiae/Purpura Psychiatric: No: Suicida ideationl All Other Systems: Reviewed and Negative PMFSH Past Medical History Medical History (Updated 10/31/19 @ 15:24 by Abdoulaye Marks MD) Anxiety GERD (gastroesophageal reflux disease) TIA (transient ischemic attack) Surgical History Surgical History No history of previous surgery Social History Social History Smoking status: Former smoker Tobacco type: cigarettes Second hand tobacco smoke exposure: Yes Additional smoking assessment comments: pt states that he only smoked from time to time and quit many years ago Alcohol intake: never Substance use: never Substance use type: does not use Additional occupation/education comments: 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 Gender identity (if verbalized by the patient): Male Comments At time of signature, agree with nursing past medical, surgical, social and family history. There is no relevant family history pertinent to the presenting complaint Exam Narrative: Exam Narrative: General Appearance: Well-nourished Head: Normocephalic Eye: PERRLA, Conjunctiva clear Ear: External ear normal Nose: Normal nose, Nare clear Mouth/Throat: Normal appearing Neck Exam: Supple Respiratory: Airway patent, No respiratory distress Musculoskeletal: Moves all extremities, Non tender Skin: Warm, Dry , small 1 cm macular papular eruption on the right low back Neurological: A&O x3 Normal mood, Course Vital Signs Vital signs: Vital Signs Temperature 98.0 F 10/31/19 14:40 Pulse Rate 66 10/31/19 14:40 Respiratory Rate 12 10/31/19 14:40 Blood Pressure 117/79 10/31/19 14:40 Pulse Oximetry 97 10/31/19 14:40 Temperature 98.0 F 10/31/19 14:40 Pulse Rate 66 10/31/19 14:40 Respiratory Rate 12 10/31/19 14:40 Blood Pressure 117/79 10/31/19 14:40 Pulse Oximetry 97 10/31/19 14:40 Discharge Plan Discharge Clinical Impression: Folliculitis, Pruritic disorder Patient Disposition: Home, Self-Care Condition: Stable Instructions: Antibiotic Form, Folliculitis (ED) Additional Instructions: Take antibiotic with food, stop if diarrhea occurs; return if worsens or spreads Prescriptions: New clindamycin HCl 300 mg capsule 300 mg PO TID Qty: 15 RF: 0 mupirocin 2 % ointment 1 applic TOPICAL TID Qty: 30 RF: 0 Interventions: Discharge Disposition Last Done: 10/31/19 15:06 Follow-up/Referrals: Harshil Guzman MD [Primary Care Provider] - Discharge Date/Time: 10/31/19 14:59
== END 2019-10-31 14:59 | disposition home or self-care (01) ==
PROVIDERS: Emergency Provider Emergency Medicine; PCP Emergency Medicine
DX: L73.9 Follicular disorder, unspecified (principal); Z87.891 Personal history of nicotine dependence; K21.9 Gastro-esophageal reflux disease without esophagitis; Z86.73 Personal history of transient ischemic attack (TIA), and cerebral infarction without residual deficits
CPT/HCPCS: 99213; G0463

== ENCOUNTER 2019-10-31 21:43 | Emergency (ER) | payer OTHER, SELFPAY ==
[2019-10-31 21:56] VITALS: BP 143/87; PULSE 94; RESP 18; TEMP 36.3; O2SAT 98
--- NOTE | 2019-10-31 22:24 | ED.ANIMALBIT ---
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 Pt states the dog was inside the house and manage to get out and bite him. Denies any other pain or injuries. complaint: animal bite Animal: dog Related Data Patient tetanus UTD: No Allergies Allergy/AdvReac Type Severity Reaction Status Date / Time No Known Allergies Allergy Verified 10/31/19 21:46 Review of Systems Review of Systems: All systems reviewed & are unremarkable except as noted in HPI and below Constitutional: Constitutional: Denies chills and Denies fever(s) Eyes: Eyes: Denies change in vision ENT: Reports system reviewed and no additional complaints, except as documented and Reports sore throat Respiratory: Respiratory: Reports no additional respiratory complaints and Denies dyspnea Gastrointestinal: Gastrointestinal: Denies abdominal pain, Denies nausea and Denies vomiting Psychiatric: Psychiatric: Denies anxiety and Denies homicidal ideation [facility] Past Medical History Medical History (Updated 10/31/19 @ 22:31 by Perfecto Morrison MD) Anxiety GERD (gastroesophageal reflux disease) TIA (transient ischemic attack) Surgical History Surgical History No history of previous surgery Social History Social History Smoking status: Former smoker Tobacco type: cigarettes Second hand tobacco smoke exposure: Yes Additional smoking assessment comments: pt states that he only smoked from time to time and quit many years ago Alcohol intake: never Substance use: never Substance use type: does not use Additional occupation/education comments: 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 Gender identity (if verbalized by the patient): Male Exam Const: General: cooperative, healthy appearing, comfortable, no acute distress, well developed, alert and awake; No confusion Orientation/consciousness: oriented to person, oriented to place, oriented to time, patient oriented x3 and No confusion Limitations: no limitations HENMT: Head: normal to inspection, normocephalic and atraumatic Ears: hearing grossly normal bilaterally, TM normal on the right and TM normal on the left General nose exam: Normal external nose present, Normal nares present and No nasal discharge present Face and sinus: normal facial exam Mouth: Yes Normal oral and palatal mucosa present, Yes lip normal, Yes tongue normal and Yes oropharynx normal Throat: posterior oropharynx normal, tonsils normal and uvula midline Eyes: General: appearance normal, both eyes and all related structures Pupils: Equal, round and reactive pupils present EOM: EOMs intact bilaterally Neck: Neck: normal visual inspection, full ROM, no lymphadenopathy and no meningeal signs Chest: Chest palpation & inspection: normal inspection of the chest Resp: Effort & Inspection: normal respiratory effort, able to speak in complete sentences, no respiratory distress and not tachypneic Auscultation: clear to auscultation bilaterally, no crackles, no rales, no rhonchi and no wheezes Cardio: Rate: regular rate Rhythm: regular rhythm GI: Inspection: normal to inspection GI Palp: No abdominal tenderness, Yes Soft to palpation, No Tenderness to palpation present (GI), No Guarding due to palpation present (GI), No Rigid due to palpation and No Rebound tenderness present Auscultation: normal bowel sounds : General: Yes no CVA tenderness Back/Spine/Pelvis: Back: no CVA tenderness Skin: General skin exam: normal color, no rashes or lesions noted, elasticity normal and turgor normal Neuro: General: oriented to person, oriented to place, oriented to time, patient oriented x3, tone normal, moves
[2019-10-31] MEDS: TETANUS,DIPHTHERIA,AC PERTUSSIS ADULT (0.5 ML) BOOSTRIX IM (22:46)
[2019-10-31 22:59] VITALS: BP 139/81; PULSE 86; RESP 18; O2SAT 97
== END 2019-10-31 23:02 | disposition home or self-care (01) ==
PROVIDERS: Emergency Provider Emergency Medicine; PCP Emergency Medicine
DX: S81.852A Open bite, left lower leg, initial encounter (principal); K21.9 Gastro-esophageal reflux disease without esophagitis; Z86.73 Personal history of transient ischemic attack (TIA), and cerebral infarction without residual deficits; Z87.891 Personal history of nicotine dependence; Z23 Encounter for immunization; W54.0XXA Bitten by dog, initial encounter
CPT/HCPCS: 90471; 90715; 99283

== ENCOUNTER 2019-11-07 16:50 | Emergency (ER) | payer OTHER, SELFPAY ==
[2019-11-07 17:08] VITALS: BP 116/62; PULSE 91; RESP 12; TEMP 36.2; O2SAT 99
--- NOTE | 2019-11-07 17:25 | ED.GENADULT ---
HPI - General Adult General Chief complaint: Animal Bite Stated complaint: dog bite Time Seen by Provider: 11/07/19 17:14 Source: patient, RN notes reviewed and old records reviewed Mode of arrival: ambulatory Limitations: no limitations History of Present Illness HPI narrative: Patient presents today complaining of a dog bite to his left lower leg. It was sustained 1 week ago. The dog was up-to-date on all vaccines. It was not the patient's dog. Patient is up-to-date on his tetanus vaccine. Per the EMR, patient was seen earlier that day prior to the dog bite at the [facility] and was given a prescription for clindamycin for folliculitis. Patient claims he did not take this antibiotic. After the dog bite, he was subsequently seen at the [facility] ER and prescribed a course of Augmentin. States he did not take this course of antibiotics either. Reports he has been using several essential oils to help heal his wound and has been quite successful, however, he believes he may need some oral antibiotics and that is why he sought treatment today. MD complaint: Dog bite Related Data Allergies Allergy/AdvReac Type Severity Reaction Status Date / Time No Known Allergies Allergy Verified 10/31/19 21:46 Review of Systems Review of Systems: Narrative: CONSTITUTIONAL: Denies body aches, fever, chills, or sweats. EYES: Denies visual changes, redness, or discharge. ENT: Denies rhinorrhea, congestion, sore throat, or otalgia. CARDIOVASCULAR: Denies chest pain, palpitations, or edema. RESPIRATORY: Denies cough or dyspnea. GASTROINTESTINAL: Denies abdominal pain, nausea, vomiting, or diarrhea. GENITOURINARY: Denies dysuria or hematuria. SKIN: Denies rash, itching. + Dog bite to left lower leg MUSCULOSKELETAL: Denies back pain, joint pain, or myalgia. NEUROLOGIC: Denies headache, numbness, tingling, or weakness. PSYCH: Denies depression or anxiety. [facility] Past Medical History Medical History (Updated 11/07/19 @ 17:26 by Indu Rayo, [facility], ) Anxiety GERD (gastroesophageal reflux disease) TIA (transient ischemic attack) Surgical History Surgical History No history of previous surgery Social History Social History Smoking status: Former smoker Tobacco type: cigarettes Second hand tobacco smoke exposure: Yes Additional smoking assessment comments: pt states that he only smoked from time to time and quit many years ago Alcohol intake: never Substance use: never Substance use type: does not use Additional occupation/education comments: 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 Gender identity (if verbalized by the patient): Male Comments At time of signature, I have reviewed and agree with nursing past medical, surgical, social and family history unless otherwise noted. Please see nursing chart for further information. There is no relevant family history pertinent to the presenting complaint Exam Narrative: Exam Narrative: GENERAL: Well-appearing, well-nourished, and in no acute distress. HEAD: Normocephalic, atraumatic. EYES: EOMI. No redness or drainage. ENT: Mucous membranes pink and moist. NECK: Normal AROM. CHEST: No respiratory distress. EXTREMITIES: Large area of healing ecchymosis to the left lateral lower leg. Approximately 4 to 5 cm round area of healing firm tissue in the center without fluctuance, induration, or erythema. 3 subcentimeter scabs overlying the firm area. There does not seem to be any infectious process present. This entire area is nontender to palpation. Full range of motion present. Distal sensation intact. Capillary refill normal. SKIN: Warm, dry, no rash. Capillary refill normal. Normal skin turgor. NEURO: No focal deficits. Alert and oriented x3. Gait steady. PSYCH: Normal affect. No signs of depression or anxiety. Course Vital
== END 2019-11-07 17:31 | disposition home or self-care (01) ==
PROVIDERS: Emergency Provider Nurse Practitioner; PCP Emergency Medicine
DX: S81.852D Open bite, left lower leg, subsequent encounter (principal); W54.0XXD Bitten by dog, subsequent encounter; Z87.891 Personal history of nicotine dependence; K21.9 Gastro-esophageal reflux disease without esophagitis; Z86.73 Personal history of transient ischemic attack (TIA), and cerebral infarction without residual deficits
CPT/HCPCS: 99211; G0463

== ENCOUNTER 2019-11-27 15:30 | Outpatient (RCR) | payer OTHER, SELFPAY ==
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
--- NOTE | 2019-09-15 12:44 | PCPTNOTE ---
pt's chart was reviewed and discussed with Ann Marie Williamson PTA; mechanical traction was added to the plan of care.
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
--- NOTE | 2019-10-04 18:01 | PCPTNOTE ---
Patient did not show up for scheduled appointment this date.
--- NOTE | 2019-10-11 15:11 | PCPTNOTE ---
Patient did not show up for scheduled appointment this date. Attempted to call pt, but his phone is disconnected.
--- NOTE | 2019-10-26 14:15 | PCPTNOTE ---
Patient did not show up for scheduled appointment this date. Attempted to call pt to review cancellation/no show policy, but phone number on file not working. Will review policy at his next visit.
--- NOTE | 2019-10-30 15:28 | PCPTNOTE ---
Patient did not show up for scheduled appointment this date; Called and left voicemail reminding about next appointment on November 01 at 2:30pm.
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
--- NOTE | 2019-11-13 13:52 | PCPTNOTE ---
Patient called & cancelled scheduled appointment this date due to family issue.
--- NOTE | 2019-11-15 15:11 | PCPTNOTE ---
Patient called & cancelled scheduled appointment this date due to family issues.
--- NOTE | 2019-11-24 14:30 | PCPTNOTE ---
Patient called & cancelled scheduled appointment this date due to reason not provided. Called pt to remind him of his Wednesday re-eval and the cancellation policy. Left a message. If he does not show on Wednesday will plan to DC.
--- NOTE | 2019-11-27 16:40 | PCPTNOTE ---
Admitting Provider: Attending Provider: Harshil Guzman MD Patient:Jim Desir Date of :1970 Discharge Note Patient has received 16 therapy visits to address his neck/upper back pain. He has declined with his pain level, his neck motion and muscle tightness since his update in October. He has decided to have continue his treatment with a chiropractor vs physical therapy. Will discharge Jim from skilled therapy services at this time. The goals have been partially met. Thank you for referring this patient to [facility]. Please review, sign, date and return this discharge summary JEANETTE. I have been updated about the patient's current status and I agree with discharge from the above service at this time. Referring Physician Date
== END 2019-11-28 14:38 | disposition home or self-care (01) ==
LOC: ANHPT 15:30
PROVIDERS: PCP Emergency Medicine; Visit Provider Emergency Medicine
DX: M47.893 Other spondylosis, cervicothoracic region (principal)
CPT/HCPCS: 97012; 97110; 97140; 97161; 97530

== ENCOUNTER 2020-01-09 12:51 | Outpatient (CLI) | payer OTHER, SELFPAY ==
--- NOTE | ~2020-01-09 | MR_ITS ---
EXAMINATION: MR cervical spine wo con DATE: 01/09/2020 13:53 INDICATION: Numbness and tingling of both upper extremities. TECHNIQUE: Magnetic resonance imaging (MRI) of the cervical spine was performed without intravenous c ontrast. Sequences included sagittal T2-weighted FSE, sagittal T2-weighted FS FSE, sagittal T1-weight ed FSE, axial MERGE, and axial T2-weighted FSE. COMPARISON: CT cervical spine 07/20/2019 FINDINGS: There is 3 mm retrolisthesis of C5 on C6. Vertebral body heights are normal. There is moder ately decreased disc height at C5-C6. The spinal cord signal intensity is normal. The following disc levels are specifically discussed: C2-C3: The disc does not extend beyond the endplate margin. There is no uncovertebral joint osteoarth ritis. There is moderate left facet joint osteoarthritis. There is mild left neural foraminal stenosi s. There is no central canal stenosis. C3-C4: The disc does not extend beyond the endplate margin. There is severe right and mild left uncov ertebral joint osteoarthritis. There is mild bilateral facet joint osteoarthritis. There is moderate right and mild left neural foraminal stenosis. There is no central canal stenosis. C4-C5: The disc is bulging. There is mild bilateral uncovertebral joint osteoarthritis. There is mild bilateral facet joint osteoarthritis. There is mild right neural foraminal stenosis. There is no jax tral canal stenosis. C5-C6: The disc is bulging. There is severe bilateral uncovertebral joint osteoarthritis. There is mi ld bilateral facet joint osteoarthritis. There is moderate right and mild left neural foraminal steno sis. There is mild central canal stenosis. C6-C7: There is a left central extrusion. There is mild bilateral uncovertebral joint osteoarthritis. There is mild bilateral facet joint osteoarthritis. There is mild bilateral neural foraminal stenosi s. There is mild central canal stenosis. C7-T1: There is a left foraminal extrusion. There is mild bilateral uncovertebral joint osteoarthriti s. There is mild bilateral facet joint osteoarthritis. There is mild right and moderate left neural f oraminal stenosis. There is no central canal stenosis. IMPRESSION: 1. Moderate cervical spondylosis. Reviewed, dictated and finalized at location A. [employer]
== END 2020-01-09 12:52 | disposition home or self-care (01) ==
PROVIDERS: PCP Emergency Medicine
DX: R20.2 Paresthesia of skin (principal); M47.22 Other spondylosis with radiculopathy, cervical region
CPT/HCPCS: 72141

== ENCOUNTER 2020-05-08 13:37 | Emergency (ER) | payer OTHER, SELFPAY ==
[2020-05-08 13:51] VITALS: BP 108/78; PULSE 69; RESP 16; TEMP 36.1; O2SAT 99
[2020-05-08 13:53] VITALS: BP 116/79; BP 118/86; BP 122/81; PULSE 63; PULSE 70; PULSE 76
--- NOTE | 2020-05-08 14:15 | ECG_ITS ---
Measurements Intervals [place] Rate: 67 P: 60 RI: 178 QRS: 10 QRSD: 110 T: 52 QT: 370 QTc: 391 Interpretive Statements SINUS RHYTHM WITH SINUS ARRHYTHMIA NORMAL ECG Electronically Signed On 05-08-2020 15:50:53 CDT by Дмитрий Goff D.O.
--- NOTE | 2020-05-08 14:19 | ED.GENADULT ---
HPI - General Adult General Chief complaint: Dizziness Stated complaint: LIGHT HEADED Source: patient and RN notes reviewed Limitations: no limitations History of Present Illness HPI narrative: The patient, remote ex-smoker/nondrinker , presents with lightheadedness. Patient states he has a couple day history of umbilical inflammation and redness around a chronic mole [which he is concerned about may be 'cancer']. There it is mild pain with palpation; no fever, discharge, abscess/induration. This is associated with lightheadedness; he was hospitalized a couple months ago with chief complaint of arm paresthesias and discharge with mood disorder after noncontributory CT, MRI, etc. No actual syncope, S OB, palpitations, chest pain, cough, lateralizing weakness, vomiting/diarrhea-but he did have several loose stools [he wants to be checked for iodine deficiency because he does not take iodized salt]. Symptoms mild worse with palpation Related Data Home Medications Medication Instructions Recorded Confirmed gabapentin 05/08/20 Allergies Allergy/AdvReac Type Severity Reaction Status Date / Time No Known Allergies Allergy Verified 10/31/19 21:46 Review of Systems Constitutional: Comments: General/Constitutional: No weight loss,fever Eyes: N0: Redness,discharge Ears/Nose/Throat: No: Epistaxis,ear discharge Respiratory: Denies: Hemoptysis Gastrointestinal: No Vomiting, Bleeding-rectal Skin: No Lumps, eruption Neurologic: No Focal Weakness,Sz Hematologic: Denies: Petechiae/Purpura Psychiatric: No: Suicida ideationl All Other Systems: Reviewed and Negative [facility] Past Medical History Medical History (Updated 05/08/20 @ 14:34 by Abdoulaye Marks MD) Anxiety GERD (gastroesophageal reflux disease) TIA (transient ischemic attack) Surgical History Surgical History No history of previous surgery Family History Family History Mother Ovarian ca Father COPD (chronic obstructive pulmonary disease) Social History Social History Smoking status: Former smoker Tobacco type: cigarettes Second hand tobacco smoke exposure: Yes Additional smoking assessment comments: pt states that he only smoked from time to time and quit many years ago Alcohol intake: never Substance use: never Substance use type: does not use Additional occupation/education comments: 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 Gender identity (if verbalized by the patient): Male Comments At time of signature, agree with nursing past medical, surgical, social and family history. There is no relevant family history pertinent to the presenting complaint Exam Narrative: Exam Narrative: General Appearance: Well appearing, No distress, Conjunctiva clear Skin: Warm, Dry small area of skin inflammation around umbilicus originating from small mole Ears: External ear normal Nose: Normal nose Mouth/Throat: Normal appearing, Normal lips, Supple Respiratory: Airway patent, No respiratory distress Cardiovascular: RRR Abdomen: Soft, Non-tender, No massess, No organomegaly (no rebound/ surgical signs), nl bowel sounds Musculoskeletal: Full ROM Neurological: A&O x3, CN II-X intact Psychiatric: Normal mood, anxious affect Course Course Emergency Course: EKG: NSR at 67, CO equal 178, QTc 385 ,axis normal 10 Vital Signs Vital signs: Vital Signs Temperature 96.9 F L 05/08/20 13:51 Pulse Rate 69 05/08/20 13:51 Respiratory Rate 16 05/08/20 13:51 Blood Pressure 108/78 05/08/20 13:51 Pulse Oximetry 99 05/08/20 13:51 Temperature 96.9 F L 05/08/20 13:51 Pulse Rate 76 05/08/20 13:53 Respiratory Rate 16 05/08/20 13:51 Blood Pressure 122/81 05/08/20 13:53 Pulse Oximetry 99 05/08/20 13:51 Medical Decision Making Vit
== END 2020-05-08 14:36 | disposition home or self-care (01) ==
PROVIDERS: Emergency Provider Emergency Medicine
DX: R42 Dizziness and giddiness (principal); P38.9 Omphalitis without hemorrhage; Z20.822 Contact with and (suspected) exposure to COVID-19; F39 Unspecified mood [affective] disorder; Z87.891 Personal history of nicotine dependence; F41.9 Anxiety disorder, unspecified; K21.9 Gastro-esophageal reflux disease without esophagitis; Z86.73 Personal history of transient ischemic attack (TIA), and cerebral infarction without residual deficits
CPT/HCPCS: 87426; 93005; 99213; C9803; G0463

== ENCOUNTER 2020-07-25 16:09 | Emergency (ER) | payer OTHER, SELFPAY ==
[2020-07-25 16:38] VITALS: BP 104/67; PULSE 77; RESP 12; TEMP 36.9; O2SAT 97
--- NOTE | 2020-07-25 16:49 | ED.SKABFB ---
HPI - Skin/Abscess/Foreign Bdy General Chief complaint: Skin/Abscess/Foreign Body Stated complaint: pos skin infection Time Seen by Provider: 07/25/20 16:40 Source: patient and RN notes reviewed Mode of arrival: ambulatory Limitations: no limitations History of Present Illness HPI narrative: 49-year-old male presents to the [facility] with swelling redness and increased warmth measuring 1/2 cm x 1-1/2 cm to the right side of his chin. States that he opened it this morning when pus came out. No fluctuant area noted at this time. Moderate swelling noted. Related Data Home Medications Medication Instructions Recorded Confirmed gabapentin 05/08/20 acetaminophen [Mapap Arthritis mg PO 07/25/20 Pain] Allergies Allergy/AdvReac Type Severity Reaction Status Date / Time No Known Allergies Allergy Verified 07/25/20 16:34 Review of Systems Review of Systems: All systems reviewed & are unremarkable except as noted in HPI and below Constitutional: Constitutional: Reports no additional constitutional complaints, Denies chills and Denies fever(s) Eyes: Eyes: Reports no additional eye complaints ENT: Reports system reviewed and no additional complaints, except as documented Cardiovascular: Cardiovascular: Reports no additional cardiovascular complaints and Denies chest pain Respiratory: Respiratory: Reports no additional respiratory complaints, Denies cough and Denies dyspnea Musculoskeletal: Musculoskeletal: Reports no additional musculoskeletal complaints, Denies back pain, Denies myalgias and Denies muscle cramps Integumentary/Breasts: Skin/Breast: Reports as per HPI (1/2 x 1/2 red raised area without fluctuance right lateral chin area), Reports erythema and Denies rash Neurologic: Reports system reviewed and no additional complaints, except as documented, Denies vertigo, Denies dizziness, Denies syncope, Denies headache(s), Denies focal weakness and Denies numbness Psychiatric: Psychiatric: Reports no additional psychiatric complaints Allergic/Immunologic: Allergic/Immunologic: Reports no additional allergic/immunologic complaints [facility] Past Medical History Medical History (Updated 07/25/20 @ 16:50 by Flavia Mckenzie) Anxiety GERD (gastroesophageal reflux disease) TIA (transient ischemic attack) Surgical History Surgical History No history of previous surgery Family History Family History Mother Ovarian ca Father COPD (chronic obstructive pulmonary disease) Social History Social History Smoking status: Former smoker Tobacco type: cigarettes Second hand tobacco smoke exposure: Yes Additional smoking assessment comments: pt states that he only smoked from time to time and quit many years ago Alcohol intake: never Substance use: never Substance use type: does not use Additional occupation/education comments: 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 Gender identity (if verbalized by the patient): Male Comments At the time of my signature, I reviewed and agree with the nursing past medical, surgical, social, and family history. There is no relevant family history pertinent to the patient complaint. Exam Const: General: healthy appearing, no acute distress and alert Nutritional Appearance: well nourished Orientation/consciousness: patient oriented x3 Limitations: no limitations HENMT: Head: normal to inspection Eyes: Conjunctivae: conjunctivae normal Pupils: Equal, round and reactive pupils present Neck: Neck: normal visual inspection, no lymphadenopathy and meningismus present Chest: Chest palpation & inspection: normal inspection of the chest Resp: Effort & Inspection: normal respiratory effort and no use of accessory muscles Auscultation: clear to auscultation bilaterally, no crackles, no rales, no rhonchi and
== END 2020-07-25 17:03 | disposition home or self-care (01) ==
PROVIDERS: Emergency Provider Nurse Practitioner
DX: L03.211 Cellulitis of face (principal); K21.9 Gastro-esophageal reflux disease without esophagitis; Z86.73 Personal history of transient ischemic attack (TIA), and cerebral infarction without residual deficits; Z87.891 Personal history of nicotine dependence
CPT/HCPCS: 99213; G0463

== ENCOUNTER 2020-08-16 01:15 | Emergency (ER) | payer OTHER, SELFPAY ==
--- NOTE | ~2020-08-16 | CT_ITS ---
EXAMINATION: CT abdomen pelvis w con DATE: 08/16/2020 02:27 INDICATION: Right lower quadrant pain TECHNIQUE: Computed tomography (CT) of the abdomen and pelvis was performed with 100 cc Omnipaque 350 intravenous contrast. The dose-length product was 454.65 mGy-cm. Automated exposure control and iter ative reconstruction technique were employed. COMPARISON: None. FINDINGS: Lung bases are unremarkable. No significant pleural or pericardial effusion. No significant vascular abnormality. No lymphadenopathy. Fatty infiltration of the liver. The spleen, pancreas, adrenal glands and right kidney are unremarkab le. There is a small low-density lesion in the left kidney, most likely cysts. Gallbladder is present . Nonobstructive bowel gas pattern. Normal appendix. Bladder wall is thickened which may be due to un derdistention or cystitis. Correlate with urinalysis. No free air or free fluid. IMPRESSION: 1. Bladder wall thickening which may be due to underdistention or cystitis. Correlate clinically. Reviewed, dictated and finalized at location A. IMPRESSION: 1. Bladder wall thickening which may be due to underdistention or cystitis. Cor relate clinically.
[2020-08-16 01:22] VITALS: BP 134/92; PULSE 64; RESP 18; TEMP 36.2; O2SAT 100
[2020-08-16 01:49] VITALS: BP 120/81; PULSE 66; RESP 18; O2SAT 99
[2020-08-16 01:56] LABS: Basophils Percent Auto 0.4 % (0.2-1.2); Eosinophils Absolute Auto 0.1 K/mm3 (0-0.3); Eosinophils Percent Auto 1.4 % (0-4.4); Hematocrit 49.6 % (42.0-52.0); Hemoglobin 16.6 g/dL (14.0-18.0); Immature Granulocyte Absolute 0.01 K/mm3 (0.00-0.031); Immature Granulocyte Percent A 0.2 % (0-0.5); Lymphocytes Absolute Auto 1.65 K/mm3 (0.9-3.2); Mean Corpuscular HGB Conc 33.5 g/dl (32-36); Mean Corpuscular Hemoglobin 29.2 pg (26-34); Mean Corpuscular Volume 87.2 fl (80-100); Mean Platelet Volume 9.3 fl (7.4-10.4); Monocytes Absolute Auto 0.5 K/mm3 (0.1-0.6); Monocytes Percent Auto 7.9 % (2.6-8.5); Neutrophils Absolute Auto 3.5 K/mm3 (1.3-6.7); Neutrophils Percent Auto 61.1 % (45.5-73.1); Platelet Count Result 229 k/mm3 (150-375); Red Blood Count 5.69 M/mm3 (4.6-6.20); Red Cell Distribution Width 12.1 % (11.5-14.5); White Blood Count 5.7 K/mm3 (4.5-10.0)
[2020-08-16 02:01] LABS: Add Urine Microscopic? NO; Appearance Urine Clear (Clear); Bilirubin Urine Negative (Negative); Blood Urine Negative (Negative); Color Urine Colorless (Yellow); Glucose Urine UA Negative (Negative); Ketones Urine Negative (Negative); Leukocyte Esterase Ur Negative LEU/UL (Negative); Nitrate Urine Negative (Negative); Protein Urine Negative (Negative); Urobilinogen Urine Negative mg/dL (<2.0)
[2020-08-16] MEDS: ONDANSETRON INJ 4 MG/2 ML VIAL IV PUSH (02:02)
[2020-08-16] MEDS: KETOROLAC 30 MG/ML VIAL (*BKC) IV PUSH (02:03)
[2020-08-16] MEDS: SODIUM CHLORIDE 0.9% IV 1,000 ML 999 ML IV CONT (02:04)
--- NOTE | 2020-08-16 02:05 | ED.GENADULT ---
HPI - General Adult General Chief complaint: Abdominal Pain Stated complaint: abd pain Time Seen by Provider: 08/16/20 01:23 History of Present Illness HPI narrative: Patient 49-year-old gentleman who presents the emergency department chief complaint of right-sided abdominal pain. Patient reports the pain started just inferior to his umbilicus on the right side of his abdomen yesterday. The patient states that sharp and burning reports that it radiates to his back reports that is not improved by anything nor is it worsened by. Patient reports after he had a bowel pain started hurting also on the left side lower quadrant. The patient reports that he got a little sweaty with this reports he felt nausea denies diarrhea. Patient reports has had no prior surgical history reports that he is scared that he may have appendicitis patient reports yesterday he did consume some turmeric with cayenne pepper and also ate some mushrooms. Related Data Home Medications Medication Instructions Recorded Confirmed gabapentin 05/08/20 acetaminophen [Mapap Arthritis mg PO 07/25/20 Pain] Allergies Allergy/AdvReac Type Severity Reaction Status Date / Time No Known Allergies Allergy Verified 08/16/20 01:26 Review of Systems Review of Systems: Narrative: A 10 system review of systems was completed on the patient and is negative except for what is stated in the HPI. Nursing and ancillary documentation was reviewed. [facility] Past Medical History Medical History Anxiety GERD (gastroesophageal reflux disease) TIA (transient ischemic attack) Surgical History Surgical History No history of previous surgery Family History Family History Mother Ovarian ca Father COPD (chronic obstructive pulmonary disease) Social History Social History Smoking status: Former smoker Tobacco type: cigarettes Second hand tobacco smoke exposure: Yes Additional smoking assessment comments: pt states that he only smoked from time to time and quit many years ago Alcohol intake: never Substance use: never Substance use type: does not use Additional occupation/education comments: 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 Gender identity (if verbalized by the patient): Male Exam Narrative: Exam Narrative: GENERAL: Well-appearing, well-nourished, and in no acute distress. HEAD: Normocephalic, atraumatic. EYES: PERRLA and EOMI. ENT: Nares clear, no rhinorrhea or epistaxis. Mucous membranes moist. NECK: Supple. CHEST: Clear to auscultation. No respiratory distress. HEART: Regular rate and rhythm. No murmur heard. Normal peripheral pulses. ABDOMEN: Soft, mild tenderness to palpation in the right lower quadrant, nondistended, normal active bowel sounds. EXTREMITIES: Normal range of motion. No edema. SKIN: Warm, dry, no rash. NEURO: No focal deficits. Alert and oriented x3. PSYCH: Normal mood and affect. Course Vital Signs Vital signs: Vital Signs Temperature 36.2 C L 08/16/20 01:22 Pulse Rate 64 08/16/20 01:22 Respiratory Rate 18 08/16/20 01:22 Blood Pressure 134/92 H 08/16/20 01:22 Pulse Oximetry 100 08/16/20 01:22 Temperature 36.2 C L 08/16/20 01:22 Pulse Rate 66 08/16/20 02:53 Respiratory Rate 18 08/16/20 02:53 Blood Pressure 109/62 08/16/20 02:53 Pulse Oximetry 99 08/16/20 02:53 Medical Decision Making Vital Signs Vital Signs: Vital Signs Temperature 36.2 C L 08/16/20 01:22 Pulse Rate 64 08/16/20 01:22 Respiratory Rate 18 08/16/20 01:22 Blood Pressure 134/92 H 08/16/20 01:22 Pulse Oximetry 100 08/16/20 01:22 Temperature 36.2 C L 08/16/20 01:22 Pulse Rate 66 08/16/20 02:53 Respiratory Rate 18 07/
[2020-08-16 02:10] LABS: Alanine Aminotransferase 15 U/L (4-50); Albumin Level 4.9 g/dL (3.5-5.1); Alkaline Phosphatase 63 U/L (38-126); Anion Gap 10 mmol/L (8-16); Aspartate Amino Transferase 22 U/L (17-59); Bilirubin,Total 2.3 mg/dL (0.2-1.3); Blood Urea Nitrogen 9 mg/dL (9-20); Calcium 9.6 mg/dL (8.4-10.2); Carbon Dioxide 28 mmol/L (22-30); Chloride 100 mmol/L (98-107); Estimated CRCL calculation 114 ml/min; Estimated Glomerular Filt Rate > 60; Glucose 96 mg/dL (75-110); Lipase 108 U/L (23-300); Potassium 3.9 mmol/L (3.4-5.0); Sodium 138 mmol/L (137-145)
[2020-08-16 02:22] LABS: Specific Grav Ur 1.001 (1.001-1.035)
[2020-08-16 02:53] VITALS: BP 109/62; PULSE 66; RESP 18; O2SAT 99
== END 2020-08-16 03:03 | disposition home or self-care (01) ==
PROVIDERS: Emergency Provider Emergency Medicine
DX: R10.84 Generalized abdominal pain (principal); Z86.73 Personal history of transient ischemic attack (TIA), and cerebral infarction without residual deficits; F41.9 Anxiety disorder, unspecified; K21.9 Gastro-esophageal reflux disease without esophagitis; Z87.891 Personal history of nicotine dependence
CPT/HCPCS: 36415; 74177; 80053; 81003; 83690; 85025; 96361; 96374; 96375; 99284; J1885; J2405; J7030; Q9967

== ENCOUNTER 2020-09-30 18:41 | Emergency (ER) | payer OTHER, SELFPAY ==
[2020-09-30 18:45] VITALS: BP 107/79; PULSE 80; RESP 12; TEMP 36.4; O2SAT 99
--- NOTE | 2020-09-30 19:21 | ED.GENADULT ---
HPI - General Adult General Chief complaint: Animal Bite Stated complaint: nose hurts Source: patient Mode of arrival: ambulatory Limitations: no limitations History of Present Illness HPI narrative: Patient is a 50-year-old male who presents to [facility] via POV for evaluation of a skin problem located on tip of nose that he noticed 2 to 3 days ago. Patient reports area is tender and erythematous. Essential oils have provided improvement. Touching affected area increases tenderness. Related Data Allergies Allergy/AdvReac Type Severity Reaction Status Date / Time No Known Allergies Allergy Verified 09/30/20 18:52 Review of Systems Review of Systems: Denies injury. Denies fever, chills, sweats, malaise, poor p.o. intake, change in appetite, headache, LOC, dizziness, streaking, drainage, numbness, tingling, loss of sensation, foreign body sensation, deformity, sob, chest pain, and heart palpitations/murmurs. PMFSH Past Medical History Medical History Anxiety GERD (gastroesophageal reflux disease) TIA (transient ischemic attack) Surgical History Surgical History No history of previous surgery Family History Family History Mother Ovarian ca Father COPD (chronic obstructive pulmonary disease) Social History Social History Smoking status: Former smoker Tobacco type: cigarettes Second hand tobacco smoke exposure: Yes Additional smoking assessment comments: pt states that he only smoked from time to time and quit many years ago Alcohol intake: never Substance use: never Substance use type: does not use Additional occupation/education comments: 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 Gender identity (if verbalized by the patient): Male Comments I have reviewed and agree with the patient's past medical, surgical, social, and family hx as documented by the RN. There is no relevant family history pertinent to the presenting complaint. Exam Narrative: GENERAL: Well-appearing, well-nourished, and in no acute distress. HEAD: Normocephalic, atraumatic. No facial swelling appreciated. EYES: PERRLA and EOMI. No evidence of erythema, swelling, or drainage. ENT: Nares clear, no rhinorrhea or epistaxis.Mucous membranes moist and pink. Uvula is midline without erythema and swelling. No evidence of obstruction, petechial rash, cobblestoning, lesions, ulcers, erythema, swelling, exudates, peritonsillar abscess, tenting, or drooling. Breath odor and voice normal. NECK: Supple. No Lymphadenopathy or nuchal rigidity appreciated. CHEST: Bilateral lung zimmer are clear to auscultation. No respiratory distress. No evidence of cough or pleuritic cp upon examination. HEART: Regular rate and rhythm. No murmur, gallop, or rub heard. EXTREMITIES: Normal range of motion. No edema. SKIN: Warm, dry. Mild cellulitis noted to tip of nose. No evidence of abscess, streaking, induration, abrasions/lacerations, petechiae, hematoma, contusion, drainage, or bleeding. NEURO: No focal deficits. Alert and oriented x3. SPECIAL OBSERVATIONS: Smiling. Laughing. No evidence of discomfort. C/O of of proportion to exam. Eating XXX. Running around. Tolerates food/fluids. Course Vital Signs Vital signs: Vital Signs Temperature 97.6 F 09/30/20 18:45 Pulse Rate 80 09/30/20 18:45 Respiratory Rate 12 09/30/20 18:45 Blood Pressure 107/79 09/30/20 18:45 Pulse Oximetry 99 09/30/20 18:45 Temperature 97.6 F 09/30/20 18:45 Pulse Rate 80 09/30/20 18:45 Respiratory Rate 12 09/30/20 18:45 Blood Pressure 107/79 09/30/20 18:45 Pulse Oximetry 99 09/30/20 18:45 Medical Decision Making Differential Diagnosis Differential Diagnosis: Contact/allergic dermat
== END 2020-09-30 19:25 | disposition home or self-care (01) ==
PROVIDERS: Emergency Provider Nurse Practitioner Family
DX: J34.0 Abscess, furuncle and carbuncle of nose (principal); Z87.891 Personal history of nicotine dependence; K21.9 Gastro-esophageal reflux disease without esophagitis; Z86.73 Personal history of transient ischemic attack (TIA), and cerebral infarction without residual deficits
CPT/HCPCS: 99213; G0463

== ENCOUNTER 2020-10-19 12:59 | Emergency (ER) | payer OTHER, SELFPAY ==
--- NOTE | 2020-10-19 14:55 | PC.NURSE ---
[id number] Patient called twice and lobby checked - he was not there.
== END 2020-10-19 14:55 | disposition left against medical advice (07) ==
PROVIDERS: Emergency Provider Emergency Medicine
DX: Z53.21 Procedure and treatment not carried out due to patient leaving prior to being seen by health care provider (principal)
CPT/HCPCS: 99213; G0463

== ENCOUNTER 2020-10-19 19:06 | Emergency (ER) | payer OTHER, SELFPAY ==
[2020-10-19 19:08] VITALS: BP 118/84; PULSE 74; RESP 16; TEMP 36.8; O2SAT 98
--- NOTE | 2020-10-19 19:31 | ED.DENTAL ---
HPI - Dental/Oral General Chief complaint: Dental/Oral Stated complaint: dental pain Source: patient and RN notes reviewed Limitations: no limitations History of Present Illness HPI Narrative: The patient, who has frequent visits [yet not for dental], presents with jaw discomfort. Patient states he has about 1/2-week history of left upper jaw discomfort which he feels began in his third and fourth molars, and is spread to the rest of his gums. No fever, hoarseness, trismus, fracture; symptoms are mild worse when eating, and unrelieved with peroxide he tried. Related Data Home Medications Medication Instructions Recorded Confirmed acetaminophen [Mapap Arthritis mg PO 10/19/20 Pain] gabapentin 10/19/20 paroxetine HCl mg PO 10/19/20 Allergies Allergy/AdvReac Type Severity Reaction Status Date / Time No Known Allergies Allergy Verified 10/19/20 19:12 Review of Systems Review of Systems: General/Constitutional: No weight loss,fever Eyes: N0: Redness,discharge Ears/Nose/Throat: No: Epistaxis,ear discharge Respiratory: Denies: Hemoptysis Gastrointestinal: No Vomiting, Bleeding-rectal Skin: No Lumps, eruption Neurologic: No Focal Weakness,Sz Hematologic: Denies: Petechiae/Purpura Psychiatric: No: Suicida ideationl All Other Systems: Reviewed and Negative [facility] Past Medical History Medical History Anxiety GERD (gastroesophageal reflux disease) TIA (transient ischemic attack) Surgical History Surgical History No history of previous surgery Family History Family History Mother Ovarian ca Father COPD (chronic obstructive pulmonary disease) Social History Social History Smoking status: Former smoker Tobacco type: cigarettes Second hand tobacco smoke exposure: Yes Additional smoking assessment comments: pt states that he only smoked from time to time and quit many years ago Alcohol intake: never Substance use: never Substance use type: does not use Additional occupation/education comments: 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 Gender identity (if verbalized by the patient): Male Comments At time of signature, agree with nursing past medical, surgical, social and family history. There is no relevant family history pertinent to the presenting complaint Exam Narrative: General Appearance: Well appearing, Conjunctiva clear Ears: External ear normal, Auditory canal normal Nose: Normal nose Mouth/Throat: Normal appearing ,without left jaw swelling), Normal lips, MM moist, Uvula midline (scattered dental caries and fillings,) Neck: Supple, No adenopathy Respiratory: Airway patent, No respiratory distress, Clear to auscultation Musculoskeletal: Full ROM, Non tender, Normal strength Skin: Warm, Dry, Normal color Neurological: A&O x3, Normal affect Course Vital Signs Vital signs: Vital Signs Temperature 98.3 F 10/19/20 19:08 Pulse Rate 74 10/19/20 19:08 Respiratory Rate 16 10/19/20 19:08 Blood Pressure 118/84 10/19/20 19:08 Pulse Oximetry 98 10/19/20 19:08 Temperature 98.3 F 10/19/20 19:08 Pulse Rate 74 10/19/20 19:08 Respiratory Rate 16 10/19/20 19:08 Blood Pressure 118/84 10/19/20 19:08 Pulse Oximetry 98 10/19/20 19:08 Discharge Plan Discharge Clinical Impression: Abscess of jaw, Acute gingivitis Patient Disposition: Home, Self-Care Condition: Stable Instructions: Gingivitis (ED) Additional Instructions: See dentist in follow-up Prescriptions: New lidocaine HCl [Lidocaine Viscous] 2 % solution 5 ml MUCOUS MEM QID PRN (Reason: pain) Qty: 100 RF: 2 amoxicillin-pot clavulanate [Augmentin] 500-125 mg tablet 1 tablet PO Q12H Qty: 20 RF: 0 amoxic
== END 2020-10-19 19:45 | disposition home or self-care (01) ==
PROVIDERS: Emergency Provider Emergency Medicine
DX: M27.2 Inflammatory conditions of jaws (principal); K05.10 Chronic gingivitis, plaque induced; Z87.891 Personal history of nicotine dependence; K21.9 Gastro-esophageal reflux disease without esophagitis; Z86.73 Personal history of transient ischemic attack (TIA), and cerebral infarction without residual deficits
CPT/HCPCS: 99213; G0463

== ENCOUNTER 2021-01-18 17:46 | Emergency (ER) | payer OTHER, SELFPAY ==
[2021-01-18 17:49] VITALS: BP 127/78; PULSE 80; TEMP 36.4; O2SAT 100
[2021-01-18 17:50] VITALS: BP 127/78; PULSE 80; RESP 16; TEMP 36.4; O2SAT 100
--- NOTE | 2021-01-18 20:07 | ED.GENADULT ---
HPI - General Adult General Chief complaint: Unspecified Stated complaint: I think i have COVID Time Seen by Provider: 01/18/21 19:14 History of Present Illness HPI narrative: Patient is a 50-year-old gentleman who presents the emergency department with chief complaint of possible Covid. The patient reports he has been unvaccinated reports that he has lost taste and smell reports he has aches throughout his entire body and feels as though he has inflammation in his bowel and also inflammation in his brain. The patient denies shortness of breath denies focal neurological deficit. Related Data Home Medications Medication Instructions Recorded Confirmed acetaminophen [Mapap Arthritis 1,300 mg PO PRN PRN 10/19/20 10/19/20 Pain] gabapentin 300 mg PO TID 10/19/20 10/19/20 paroxetine HCl 10 mg PO DAILY 10/19/20 10/19/20 Allergies Allergy/AdvReac Type Severity Reaction Status Date / Time No Known Allergies Allergy Verified 10/19/20 19:12 Review of Systems Review of Systems: A 10 system review of systems was completed on the patient and is negative except for what is stated in the HPI. Nursing and ancillary documentation was reviewed. [facility]LY [facility] Past Medical History Medical History Anxiety GERD (gastroesophageal reflux disease) TIA (transient ischemic attack) Surgical History Surgical History No history of previous surgery Family History Family History Mother Ovarian ca Father COPD (chronic obstructive pulmonary disease) Social History Social History Smoking status: Former smoker Tobacco type: cigarettes Second hand tobacco smoke exposure: Yes Additional smoking assessment comments: pt states that he only smoked from time to time and quit many years ago Alcohol intake: never Substance use: never Substance use type: does not use Additional occupation/education comments: 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 Gender identity (if verbalized by the patient): Male Exam Narrative: GENERAL: Well-appearing, well-nourished, and in no acute distress. HEAD: Normocephalic, atraumatic. EYES: PERRLA and EOMI. ENT: Nares clear, no rhinorrhea or epistaxis. Mucous membranes moist. NECK: Supple. CHEST: Clear to auscultation. No respiratory distress. HEART: Regular rate and rhythm. No murmur heard. Normal peripheral pulses. ABDOMEN: Soft, nontender, nondistended, normal active bowel sounds. EXTREMITIES: Normal range of motion. No edema. SKIN: Warm, dry, no rash. NEURO: No focal deficits. Alert and oriented x3. PSYCH: Normal mood and affect. Course Vital Signs Vital signs: Vital Signs Temperature 36.4 C L 01/18/21 17:49 Pulse Rate 80 01/18/21 17:49 Blood Pressure 127/78 01/18/21 17:49 Pulse Oximetry 100 01/18/21 17:49 Temperature 36.4 C L 01/18/21 17:50 Pulse Rate 80 01/18/21 17:50 Respiratory Rate 16 01/18/21 17:50 Blood Pressure 127/78 01/18/21 17:50 Pulse Oximetry 100 01/18/21 17:50 Medical Decision Making Vital Signs Vital Signs: Vital Signs Temperature 36.4 C L 01/18/21 17:49 Pulse Rate 80 01/18/21 17:49 Blood Pressure 127/78 01/18/21 17:49 Pulse Oximetry 100 01/18/21 17:49 Temperature 36.4 C L 01/18/21 17:50 Pulse Rate 80 01/18/21 17:50 Respiratory Rate 16 01/18/21 17:50 Blood Pressure 127/78 01/18/21 17:50 Pulse Oximetry 100 01/18/21 17:50 Discharge Plan Discharge Prescriptions: No Action paroxetine HCl 10 mg tablet 10 mg PO DAILY RF: 0 acetaminophen [Mapap Arthritis Pain] 650 mg tablet extended release 1,300 mg PO PRN PRN (Reason: Pain) RF: 0 gabapentin 300 mg capsule 300 mg PO TID RF: 0 lidocaine HCl [Lidocaine Viscous] 2
[2021-01-18 20:15] LABS: Add Urine Microscopic? YES; Appearance Urine Clear (Clear); Bilirubin Urine Negative (Negative); Blood Urine Negative (Negative); Color Urine Yellow (Yellow); Glucose Urine UA Negative (Negative); Ketones Urine Negative (Negative); Leukocyte Esterase Ur Negative LEU/UL (Negative); Mucus Urine Moderate /lpf; Nitrate Urine Negative (Negative); Protein Urine Negative (Negative); Urobilinogen Urine Negative mg/dL (<2.0); WBC Urine 0-3 /hpf
[2021-01-18] MEDS: KETOROLAC (*BKC) 60 MG/2 ML VIAL IM (21:08)
[2021-01-18 21:36] VITALS: PULSE 69; RESP 18; O2SAT 99
[2021-01-20 14:20] LABS: SARS-CoV-2 RNA PCR Positive
== END 2021-01-18 21:20 | disposition home or self-care (01) ==
PROVIDERS: Emergency Provider Emergency Medicine; PCP Physician Assistant
DX: U07.1 COVID-19 (principal); F41.9 Anxiety disorder, unspecified; K21.9 Gastro-esophageal reflux disease without esophagitis
CPT/HCPCS: 81001; 87804; 96372; 99283; C9803; J1885; U0003; U0005

== ENCOUNTER 2021-01-21 11:06 | Emergency (ER) | payer OTHER, SELFPAY ==
--- NOTE | ~2021-01-21 | XR_ITS ---
EXAMINATION: XR chest 1V portable DATE: 01/21/2021 12:19 INDICATION: Shortness of breath. COVID-19 pneumonia. TECHNIQUE: A single frontal view of the chest was obtained on 2 radiographs. COMPARISON: Chest single view 07/07/2019, CT abdomen and pelvis 08/16/2020 FINDINGS: The chest demonstrates clear lungs without pneumonia, pleural effusion, or pneumothorax. Th e heart size is normal. IMPRESSION: 1. No acute cardiopulmonary disease. Reviewed, dictated and finalized at location A. H RUNNER
--- NOTE | ~2021-01-21 | CT_ITS ---
EXAMINATION: CTA chest PE protocol DATE: 01/21/2021 14:24 INDICATION: COVID positive. Shortness of breath, cough, weakness and elevated d-dimer. TECHNIQUE: Computed tomography (CT) pulmonary angiogram of the chest was performed with 100 mL Omnipa que-350 intravenous contrast. Additional 3D reconstructions utilizing coronal maximum intensity proje ction (MIP) were performed. Automated exposure control and iterative reconstruction technique were em ployed. The dose-length product was 432.12 mGy-cm. COMPARISON: None FINDINGS: . contrast opacification of the pulmonary arteries. There is mild streak artifact from dense contrast in the superior vena cava and right atrium. No significant respiratory motion artifact yielding diag nostic for the study which demonstrates no pulmonary embolism. Multiple bilateral small scattered pat buffy groundglass opacities with peripheral and lower lung predominance with appearance consistent with COVID pneumonia. No pulmonary edema or pleural effusion. Heart size is normal. No pericardial effusi on. Thoracic aorta is normal in caliber with no dissection. No pathologically enlarged abdominal or p elvic lymphadenopathy. Visualized upper abdomen is unremarkable. Mild thoracic spondylosis. IMPRESSION: 1. No pulmonary embolism. 2. Multiple small scattered peripheral and lower lung predominant groundglass opacities with appearan ce consistent with COVID pneumonia. Reviewed, dictated and finalized at location A. CTOR OF CARDIOLOGY IMPRESSION: 1. No pulmonary embolism. 2. Multiple small scattered peripheral and lower lung predominant groundglass o pacities with appearance consistent with COVID pneumonia.
[2021-01-21 11:15] VITALS: BP 107/69; PULSE 97; RESP 16; TEMP 37; O2SAT 99
--- NOTE | 2021-01-21 11:54 | ECG_ITS ---
Measurements Intervals [place] Rate: 83 P: 35 SD: 178 QRS: 3 QRSD: 101 T: 42 QT: 345 QTc: 406 Interpretive Statements SINUS RHYTHM BASELINE ARTIFACT- I, II, III, AVR, AVL, AVF, V3-V4 NORMAL ECG Electronically Signed On 01-21-2021 12:43:55 [employer]ICAL [employer] TEACHER by Дмитрий Goff D.O.
--- NOTE | 2021-01-21 12:35 | ED.URI ---
HPI - URI/Sore Throat General Chief Complaint: Upper Respiratory Infection Stated Complaint: covid+, weak Time Seen by Provider: 01/21/21 11:26 Source: patient Mode of arrival: ambulatory Limitations: no limitations History of Present Illness HPI Narrative: 50-year-old male Complains of upper respiratory symptoms for 5 or 6 days He was seen here 3 days ago and a Covid swab done which is subsequently returned positive He has a number of complaints Some are fairly typical Covid, muscle aches, fatigue, dry cough, loss of sense of taste However he has some other unusual complaints as well such as feeling that his intestines and his brain are inflamed He has some anterior chest pain when he takes a deep breath He has not received a Covid vaccination or a influenza vaccination In addition to the above he states that he spilled hot tea on himself at some point and has scald chanel on his lower abdomen Related Data Home Medications Medication Instructions Recorded Confirmed acetaminophen [Mapap Arthritis 1,300 mg PO PRN PRN 10/19/20 10/19/20 Pain] gabapentin 300 mg PO TID 10/19/20 10/19/20 paroxetine HCl 10 mg PO DAILY 10/19/20 10/19/20 Allergies Allergy/AdvReac Type Severity Reaction Status Date / Time No Known Allergies Allergy Verified 01/21/21 12:17 Review of Systems Review of Systems: All systems reviewed & are unremarkable except as noted in HPI and below Constitutional: Constitutional: Reports chills, Reports fatigue, Reports fever(s) and Denies headache(s) Eyes: Eyes: Reports no additional eye complaints and Denies change in vision ENT: Denies headache(s), Reports nasal congestion and Denies sore throat Cardiovascular: Cardiovascular: Reports chest pain and Denies dyspnea Respiratory: Respiratory: Reports chest congestion, Reports cough and Reports dyspnea Gastrointestinal: Gastrointestinal: Denies abdominal pain, Denies diarrhea, Reports nausea and Denies vomiting Genitourinary: Genitourinary: Denies dysuria and Denies urinary frequency Musculoskeletal: Musculoskeletal: Denies deformity, Denies arthralgias, Denies joint swelling and Denies numbness Integumentary/Breasts: Skin/Breast: Denies rash and Denies wounds Neurologic: Denies headache(s), Denies focal weakness and Denies numbness Psychiatric: Psychiatric: Reports no additional psychiatric complaints Endocrine: Endocrine: Reports no additional endocrine complaints Hematologic/Lymphatic: Hematologic/Lymphatic: Reports no additional hematologic/lymphatic complaints Allergic/Immunologic: Allergic/Immunologic: Reports no additional allergic/immunologic complaints [facility] Past Medical History Medical History Anxiety GERD (gastroesophageal reflux disease) TIA (transient ischemic attack) Surgical History Surgical History No history of previous surgery Family History Family History Mother Ovarian ca Father COPD (chronic obstructive pulmonary disease) Social History Social History Smoking status: Former smoker Tobacco type: cigarettes Second hand tobacco smoke exposure: Yes Additional smoking assessment comments: pt states that he only smoked from time to time and quit many years ago Alcohol intake: never Substance use: never Substance use type: does not use Additional occupation/education comments: 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 Gender identity (if verbalized by the patient): Male Exam Const: General: cooperative and no acute distress Orientation/consciousness: patient oriented x3 (alert) HENMT: Head: normal to inspection, normocephalic and atraumatic Ears: external ears normal General nose exam: no epistaxis Eyes: Conjunctivae: conjunctivae normal EOM: EOMs intact bilat
[2021-01-21 12:53] LABS: Basophils Percent Auto 0.2 % (0.2-1.2); Eosinophils Percent Auto 0.2 % (0-4.4); Hematocrit 46.9 % (42.0-52.0); Hemoglobin 16.2 g/dL (14.0-18.0); Immature Granulocyte Absolute 0.02 K/mm3 (0.00-0.031); Immature Granulocyte Percent A 0.3 % (0-0.5); Immature Platelet Fraction Pct 2.2 % (0.9-11.2); Lymphocytes Percent Auto 11.3 % (18.3-44.2); Mean Corpuscular HGB Conc 34.5 g/dl (32-36); Mean Corpuscular Hemoglobin 30.3 pg (26-34); Mean Corpuscular Volume 87.7 fl (80-100); Mean Platelet Volume 8.9 fl (7.4-10.4); Monocytes Absolute Auto 0.6 K/mm3 (0.1-0.6); Monocytes Percent Auto 9.5 % (2.6-8.5); Neutrophils Absolute Auto 4.9 K/mm3 (1.3-6.7); Neutrophils Percent Auto 78.5 % (45.5-73.1); Platelet Count Result 148 k/mm3 (150-375); Red Blood Count 5.35 M/mm3 (4.6-6.20); Red Cell Distribution Width 11.9 % (11.5-14.5); White Blood Count 6.2 K/mm3 (4.5-10.0)
[2021-01-21 13:03] LABS: Anion Gap 8 mmol/L (8-16); Blood Urea Nitrogen 13 mg/dL (9-20); Calcium 8.2 mg/dL (8.4-10.2); Carbon Dioxide 29 mmol/L (22-30); Chloride 92 mmol/L (98-107); D Dimer 1.11 ug/mL (<0.48); Estimated CRCL calculation 86 ml/min; Estimated Glomerular Filt Rate > 60; Glucose 89 mg/dL (65-110); Potassium 4.3 mmol/L (3.4-5.0); Sodium 129 mmol/L (137-145)
[2021-01-21] MEDS: ALBUTEROL SULFATE (*SP) AEROSOL 1 PUFF 6 PUFF INHALATION (13:06)
[2021-01-21] MEDS: ALBUTEROL SULFATE (*SP) INHALER 1 PUFF (13:06)
[2021-01-21 13:15] LABS: Troponin I < 0.012 ng/mL (0.000-0.034)
[2021-01-21 13:44] VITALS: BP 127/87; PULSE 64; RESP 14; O2SAT 97
[2021-01-21 15:45] VITALS: BP 138/80; PULSE 88; RESP 17; O2SAT 97
== END 2021-01-21 15:45 | disposition home or self-care (01) ==
PROVIDERS: Emergency Provider Emergency Medicine; PCP Physician Assistant
DX: U07.1 COVID-19 (principal); J12.82 Pneumonia due to coronavirus disease 2019; F41.9 Anxiety disorder, unspecified; K21.9 Gastro-esophageal reflux disease without esophagitis; Z86.73 Personal history of transient ischemic attack (TIA), and cerebral infarction without residual deficits; Z87.891 Personal history of nicotine dependence
CPT/HCPCS: 36415; 71045; 71275; 80048; 84484; 85025; 85055; 85380; 93005; 99284; A9270; Q9967

== ENCOUNTER 2021-01-23 06:53 | Emergency (ER) | payer OTHER, SELFPAY ==
--- NOTE | ~2021-01-23 | XR_ITS ---
EXAMINATION: XR chest 1V portable EXAM DATE: 01/23/2021 07:59 INDICATION: Shortness of air. TECHNIQUE: Portable AP frontal chest x-ray was obtained. Comparison is made to prior examination from 01/21/2021. FINDINGS: Moderate amount of bilateral ill-defined airspace disease, appearance is consistent with Co vid 19 pneumonia, please clinically correlate. Edema or other infectious etiology less likely. No pne umothorax or pleural effusion. Cardiomediastinal silhouette is normal. There are no osseous abnormali ties identified. IMPRESSION: Moderate amount of acute airspace disease most likely acute COVID pneumonia. Reviewed, dictated and finalized at location B. NICAL SERVICES REPRESENTATIVE
[2021-01-23 07:14] VITALS: BP 100/75; PULSE 105; RESP 18; TEMP 37.9; O2SAT 98
[2021-01-23 08:01] VITALS: BP 108/71; PULSE 89; RESP 16; O2SAT 97
[2021-01-23] MEDS: ONDANSETRON INJ 4 MG/2 ML VIAL IV PUSH (08:05)
[2021-01-23] MEDS: SODIUM CHLORIDE 0.9% IV 1,000 ML 999 ML IV CONT (08:06)
[2021-01-23 08:17] LABS: Basophils Percent Auto 0.2 % (0.2-1.2); Immature Granulocyte Absolute 0.01 K/mm3 (0.00-0.031); Immature Granulocyte Percent A 0.2 % (0-0.5); Immature Platelet Fraction Pct 4.1 % (0.9-11.2); Lymphocytes Absolute Auto 0.54 K/mm3 (0.9-3.2); Lymphocytes Percent Auto 9.7 % (18.3-44.2); Mean Corpuscular HGB Conc 34.8 g/dl (32-36); Mean Corpuscular Hemoglobin 30.1 pg (26-34); Mean Corpuscular Volume 86.5 fl (80-100); Mean Platelet Volume 9.6 fl (7.4-10.4); Monocytes Absolute Auto 0.3 K/mm3 (0.1-0.6); Monocytes Percent Auto 5.8 % (2.6-8.5); Neutrophils Absolute Auto 4.7 K/mm3 (1.3-6.7); Neutrophils Percent Auto 84.1 % (45.5-73.1); Platelet Count Result 130 k/mm3 (150-375); Red Blood Count 5.32 M/mm3 (4.6-6.20); Red Cell Distribution Width 11.9 % (11.5-14.5); White Blood Count 5.6 K/mm3 (4.5-10.0)
[2021-01-23 08:22] LABS: Alanine Aminotransferase 24 U/L (4-50); Albumin Level 4.3 g/dL (3.5-5.1); Alkaline Phosphatase 58 U/L (38-126); Anion Gap 11 mmol/L (8-16); Aspartate Amino Transferase 48 U/L (17-59); Bilirubin,Total 1.1 mg/dL (0.2-1.3); Blood Urea Nitrogen 12 mg/dL (9-20); Calcium 8.1 mg/dL (8.4-10.2); Carbon Dioxide 29 mmol/L (22-30); Chloride 88 mmol/L (98-107); Estimated CRCL calculation 75 ml/min; Estimated Glomerular Filt Rate > 60; Glucose 110 mg/dL (65-110); Sodium 128 mmol/L (137-145)
[2021-01-23 09:21] VITALS: BP 100/52; BP 114/73; PULSE 100; PULSE 119
[2021-01-23 09:22] VITALS: BP 102/70; PULSE 112
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
[2021-01-23 10:28] VITALS: BP 102/76; PULSE 89; RESP 18; O2SAT 96
[2021-01-23 11:16] VITALS: BP 124/66; PULSE 85; RESP 18; O2SAT 96
== END 2021-01-23 11:45 | disposition home or self-care (01) ==
PROVIDERS: Emergency Provider Emergency Medicine; PCP Family Medicine
DX: U07.1 COVID-19 (principal); J12.82 Pneumonia due to coronavirus disease 2019; T21.22XA Burn of second degree of abdominal wall, initial encounter; T21.26XA Burn of second degree of male genital region, initial encounter; T21.29XA Burn of second degree of other site of trunk, initial encounter; T24.212A Burn of second degree of left thigh, initial encounter; K21.9 Gastro-esophageal reflux disease without esophagitis; F41.9 Anxiety disorder, unspecified; Z86.73 Personal history of transient ischemic attack (TIA), and cerebral infarction without residual deficits; Z87.891 Personal history of nicotine dependence; T31.0 Burns involving less than 10% of body surface; X10.0XXA Contact with hot drinks, initial encounter
CPT/HCPCS: 36415; 71045; 80053; 85025; 85055; 96361; 96374; 99284; J2405; J7030

== ENCOUNTER 2021-01-23 16:45 | Emergency (ER) | payer OTHER, SELFPAY ==
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
== END 2021-01-23 16:47 | disposition left against medical advice (07) ==
LOC: ANHED 16:57
DX: Z53.21 Procedure and treatment not carried out due to patient leaving prior to being seen by health care provider (principal)
CPT/HCPCS: 99199

== ENCOUNTER 2021-01-30 07:52 | Emergency (ER) | payer OTHER, SELFPAY ==
[2021-01-30] VITALS (30 sets, daily range): BP systolic 106–162; BP diastolic 67–151; PULSE 75–110; RESP 19–32; TEMP 36.5; O2SAT 95–100
--- NOTE | ~2021-01-30 | CT_ITS ---
EXAMINATION: CTA chest PE protocol DATE: 01/30/2021 12:20 INDICATION: Chest pain. COVID-19 pneumonia. TECHNIQUE: Computed tomography angiography (CTA) of the chest was performed with 100 mL Omnipaque-350 intravenous contrast timed to evaluate the pulmonary arteries. Coronal maximum intensity projection 3D-reconstructions were created by the technologist. Automated exposure control and iterative reconst ruction technique were employed. The dose-length product was 403.12 mGy-cm. COMPARISON: Chest CT 01/21/2021 FINDINGS: There are patchy airspace and groundglass opacities and crazy paving involving all lobes wi th a peripheral predominance with relative sparing of the lung apices. No pleural effusion. The heart size is normal. No pericardial effusion. There is no pulmonary embolus. There is mild left hilar lym phadenopathy, likely reactive. There is a gallstone in the gallbladder, which is normal in size. Ther e is mild thoracic spondylosis. IMPRESSION: 1. No pulmonary embolus. 2. Diffuse lung disease, worsened from 01/21/2021, consistent with COVID-19 pneumonia. 3. Mild left hilar lymphadenopathy, likely reactive. 4. Cholelithiasis. Reviewed, dictated and finalized at location A. ERCIAL TECHNICIAN IMPRESSION: 1. No pulmonary embolus. 2. Diffuse lung disease, worsened from 01/21/2021, consistent with COVID-19 pne umonia. 3. Mild left hilar lymphadenopathy, likely reactive. 4. Cholelithiasis.
--- NOTE | ~2021-01-30 | XR_ITS ---
XR chest 1V portable 01/30/2021 09:13 Indication: Weakness and fever Procedure: AP portable chest Comparison: 01/23/2021 Findings: There has been progression of patchy bilateral airspace disease, compatible with pneumonia. No pleural effusion or pneumothorax. No acute osseous abnormality. Impression: 1: Progression of patchy bilateral airspace disease, compatible with pneumonia. Reviewed, dictated and finalized at location A. RVISOR GRADING Impression: 1: Progression of patchy bilateral airspace disease, compatible with pneumonia.
--- NOTE | 2021-01-30 09:01 | ECG_ITS ---
Measurements Intervals [place] Rate: 79 P: 69 [place]: 191 QRS: 22 QRSD: 110 T: 33 QT: 386 QTc: 443 Interpretive Statements SINUS RHYTHM INTRAVENTRICULAR CONDUCTION DELAY BASELINE ARTIFACT- V1-V2, V6 BORDERLINE ECG Electronically Signed On 01-30-2021 16:52:18 ELECTRICAL ACCESSORIES I ASSEMBLER by Дмитрий Goff D.O.
[2021-01-30] MEDS: HYDROcodone/acetaminophen (*CRX) 5-325 MG TABLET 1 TAB PO (09:11)
[2021-01-30] MEDS: SILVER SULFADIAZINE 1% CR 50 GM JAR (*BKC) 1 APPLIC TOPICAL (09:11)
[2021-01-30] MEDS: SODIUM CHLORIDE 0.9% IV 2,700 ML/1,000 ML BAG 999 ML IV CONT ×3 (09:23→11:48)
[2021-01-30 09:37] LABS: Basophils Percent Auto 0.3 % (0.2-1.2); Eosinophils Absolute Auto 0.1 K/mm3 (0-0.3); Eosinophils Percent Auto 0.9 % (0-4.4); Hematocrit 47.8 % (42.0-52.0); Hemoglobin 16.6 g/dL (14.0-18.0); Immature Granulocyte Absolute 0.13 K/mm3 (0.00-0.031); Immature Granulocyte Percent A 1.1 % (0-0.5); Lymphocytes Absolute Auto 0.86 K/mm3 (0.9-3.2); Mean Corpuscular HGB Conc 34.7 g/dl (32-36); Mean Corpuscular Hemoglobin 29.9 pg (26-34); Mean Platelet Volume 9.3 fl (7.4-10.4); Monocytes Absolute Auto 0.5 K/mm3 (0.1-0.6); Monocytes Percent Auto 4.1 % (2.6-8.5); Neutrophils Absolute Auto 10.7 K/mm3 (1.3-6.7); Neutrophils Percent Auto 86.6 % (45.5-73.1); Platelet Count Result 464 k/mm3 (150-375); Red Blood Count 5.56 M/mm3 (4.6-6.20); Red Cell Distribution Width 11.9 % (11.5-14.5); White Blood Count 12.3 K/mm3 (4.5-10.0)
[2021-01-30 09:46] LABS: INR 1.1; Prothrombin Time 13.6 Seconds (11.1-14.7)
[2021-01-30 09:47] LABS: Partial Thromboplastin Time 30.9 SECONDS (22.3-36.8)
[2021-01-30 09:51] LABS: Alanine Aminotransferase 63 U/L (4-50); Albumin Level 4.3 g/dL (3.5-5.1); Alkaline Phosphatase 125 U/L (38-126); Anion Gap 12 mmol/L (8-16); Aspartate Amino Transferase 77 U/L (17-59); Bilirubin,Total 1.5 mg/dL (0.2-1.3); Blood Urea Nitrogen 6 mg/dL (9-20); Calcium 8.9 mg/dL (8.4-10.2); Carbon Dioxide 28 mmol/L (22-30); Chloride 86 mmol/L (98-107); Estimated CRCL calculation 116 ml/min; Estimated Glomerular Filt Rate > 60; Glucose 118 mg/dL (65-110); Lipase 287 U/L (23-300); Potassium 3.7 mmol/L (3.4-5.0); Sodium 126 mmol/L (137-145)
[2021-01-30 10:03] LABS: Troponin I < 0.012 ng/mL (0.000-0.034)
[2021-01-30 10:13] LABS: Lactic Acid Reflex 1.8 mmol/L (0.7-2.1)
[2021-01-30 10:25] LABS: Add Urine Microscopic? YES; Appearance Urine Clear (Clear); Bilirubin Urine Negative (Negative); Blood Urine Negative (Negative); Color Urine Yellow (Yellow); Glucose Urine UA Negative (Negative); Ketones Urine 1+ mg/dL (Negative); Leukocyte Esterase Ur Negative LEU/UL (Negative); Nitrate Urine Negative (Negative); Protein Urine Negative (Negative); Squamous Epithelial Cell Urine Rare /hpf (Few); Urobilinogen Urine Negative mg/dL (<2.0)
[2021-01-30 10:26] LABS: Specific Grav Ur 1.003 (1.001-1.035)
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
--- NOTE | 2021-01-30 13:37 | PC.NURSE ---
ambulated pt w/ pulse ox per EDP Elda. pt stayed at 96% while ambulating.
== END 2021-01-30 14:57 | disposition home or self-care (01) ==
PROVIDERS: Emergency Provider General Practice; PCP Physician Assistant
DX: U07.1 COVID-19 (principal); J12.82 Pneumonia due to coronavirus disease 2019; E86.0 Dehydration; D72.829 Elevated white blood cell count, unspecified; T21.22XA Burn of second degree of abdominal wall, initial encounter; T31.0 Burns involving less than 10% of body surface; K80.20 Calculus of gallbladder without cholecystitis without obstruction; Z87.891 Personal history of nicotine dependence; Z86.73 Personal history of transient ischemic attack (TIA), and cerebral infarction without residual deficits; K21.9 Gastro-esophageal reflux disease without esophagitis; F41.9 Anxiety disorder, unspecified; I45.9 Conduction disorder, unspecified; X08.8XXA Exposure to other specified smoke, fire and flames, initial encounter
CPT/HCPCS: 36415; 71045; 71275; 80053; 81001; 83605; 83690; 84484; 85025; 85610; 85730; 87086; 87088; 93005; 96360; 96361; 99284; A9270; J2405; J7030; Q9967

== ENCOUNTER 2021-02-07 07:00 | Emergency (ER) | payer OTHER, SELFPAY ==
--- NOTE | ~2021-02-07 | XR_ITS ---
EXAMINATION: XR chest 1V portable DATE: 02/07/2021 07:37 INDICATION: Cough and fever. COVID-19 pneumonia. TECHNIQUE: A single frontal view of the chest was obtained. COMPARISON: Chest single view 01/30/2021 FINDINGS: There are patchy airspace opacities in all lung zones, predominantly involving the mid and lower lung zones. No pleural effusion or pneumothorax. The heart size is normal. IMPRESSION: 1. Diffuse lung disease with mild worsening on the right, consistent with COVID-19 pneumonia. Reviewed, dictated and finalized at location A. R OFF IMPRESSION: 1. Diffuse lung disease with mild worsening on the right, consistent with COVID -19 pneumonia.
[2021-02-07 07:18] VITALS: BP 119/83; PULSE 88; RESP 18; TEMP 36.6; O2SAT 95
[2021-02-07 07:32] VITALS: RESP 18; O2SAT 95
--- NOTE | 2021-02-07 08:19 | ECG_ITS ---
Measurements Intervals [place] Rate: 66 P: 66 [place]: 182 QRS: 4 QRSD: 108 T: 34 QT: 395 QTc: 414 Interpretive Statements SINUS RHYTHM NORMAL ECG Electronically Signed On 02-07-2021 10:55:41 NURSE INSTRUCTOR by Дмитрий Goff D.O.
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
[2021-02-07 08:49] LABS: INR 0.9; Prothrombin Time 12.1 Seconds (11.1-14.7)
[2021-02-07 08:50] LABS: Partial Thromboplastin Time 32.1 SECONDS (22.3-36.8)
[2021-02-07 09:03] LABS: Basophils Absolute Auto 0.1 K/mm3 (0.0-0.1); Basophils Percent Auto 1.1 % (0.2-1.2); Eosinophils Absolute Auto 0.3 K/mm3 (0-0.3); Hematocrit 42.4 % (42.0-52.0); Hemoglobin 14.4 g/dL (14.0-18.0); Immature Granulocyte Absolute 0.05 K/mm3 (0.00-0.031); Immature Granulocyte Percent A 0.8 % (0-0.5); Lymphocytes Absolute Auto 1.12 K/mm3 (0.9-3.2); Lymphocytes Percent Auto 17.9 % (18.3-44.2); Mean Corpuscular Hemoglobin 29.8 pg (26-34); Mean Corpuscular Volume 87.8 fl (80-100); Mean Platelet Volume 8.5 fl (7.4-10.4); Monocytes Absolute Auto 0.7 K/mm3 (0.1-0.6); Monocytes Percent Auto 10.4 % (2.6-8.5); Neutrophils Absolute Auto 4.1 K/mm3 (1.3-6.7); Neutrophils Percent Auto 65.8 % (45.5-73.1); Platelet Count Result 412 k/mm3 (150-375); Red Blood Count 4.83 M/mm3 (4.6-6.20); Red Cell Distribution Width 12.2 % (11.5-14.5); White Blood Count 6.3 K/mm3 (4.5-10.0)
[2021-02-07 09:04] LABS: Alanine Aminotransferase 93 U/L (4-50); Albumin Level 3.9 g/dL (3.5-5.1); Alkaline Phosphatase 102 U/L (38-126); Anion Gap 9 mmol/L (8-16); Aspartate Amino Transferase 56 U/L (17-59); Bilirubin,Total 0.8 mg/dL (0.2-1.3); Blood Urea Nitrogen 13 mg/dL (9-20); Calcium 8.8 mg/dL (8.4-10.2); Carbon Dioxide 27 mmol/L (22-30); Chloride 101 mmol/L (98-107); Estimated CRCL calculation 130 ml/min; Estimated Glomerular Filt Rate > 60; Glucose 88 mg/dL (65-110); Potassium 4.3 mmol/L (3.4-5.0); Sodium 137 mmol/L (137-145)
[2021-02-07 09:18] LABS: Troponin I < 0.012 ng/mL (0.000-0.034)
[2021-02-07 09:24] VITALS: BP 100/80; PULSE 70; RESP 18; O2SAT 96
[2021-02-07 12:14] LABS: Troponin I < 0.012 ng/mL (0.000-0.034)
[2021-02-07 12:22] VITALS: PULSE 98; O2SAT 97
[2021-02-07 12:50] VITALS: BP 108/79; PULSE 88; RESP 18; O2SAT 97
== END 2021-02-07 13:07 | disposition home or self-care (01) ==
PROVIDERS: Emergency Provider Emergency Medicine; PCP Physician Assistant
DX: U07.1 COVID-19 (principal); J12.82 Pneumonia due to coronavirus disease 2019; Z87.891 Personal history of nicotine dependence
CPT/HCPCS: 36415; 71045; 80053; 84484; 85025; 85610; 85730; 93005; 99284

== ENCOUNTER 2021-02-11 08:20 | Emergency (ER) | payer OTHER, SELFPAY ==
--- NOTE | ~2021-02-11 | XR_ITS ---
EXAMINATION: XR chest 2V DATE: 02/11/2021 08:52 INDICATION: Chest pain. Fatigue. COVID pneumonia for one month. TECHNIQUE: frontal and lateral views of the chest were obtained. COMPARISON: Chest radiograph dated 02/07/2021 FINDINGS: No significant interval change in patchy airspace opacities in the bilateral mid and lower lung zones . No pleural effusion or pneumothorax. The cardiomediastinal silhouette is normal. Mild thoracic spon dylosis. IMPRESSION: 1. No significant change in patchy bilateral lung disease consistent with COVID pneumonia. Reviewed, dictated and finalized at location D. L CUTTER
[2021-02-11 08:27] VITALS: BP 145/99; PULSE 99; RESP 19; TEMP 36.4; O2SAT 99
--- NOTE | 2021-02-11 08:31 | ECG_ITS ---
Measurements Intervals [place] Rate: 86 P: 70 [place]: 172 QRS: 16 QRSD: 97 T: 64 QT: 340 QTc: 407 Interpretive Statements SINUS RHYTHM INCOMPLETE RIGHT BUNDLE BRANCH BLOCK BORDERLINE ECG Electronically Signed On 02-11-2021 8:57:46 DRAWER IN by Дмитрий Goff D.O.
[2021-02-11 08:52] LABS: Basophils Absolute Auto 0.1 K/mm3 (0.0-0.1); Basophils Percent Auto 0.9 % (0.2-1.2); Eosinophils Absolute Auto 0.6 K/mm3 (0-0.3); Eosinophils Percent Auto 7.7 % (0-4.4); Hematocrit 45.4 % (42.0-52.0); Hemoglobin 15.4 g/dL (14.0-18.0); Immature Granulocyte Absolute 0.06 K/mm3 (0.00-0.031); Immature Granulocyte Percent A 0.8 % (0-0.5); Lymphocytes Absolute Auto 1.24 K/mm3 (0.9-3.2); Lymphocytes Percent Auto 16.6 % (18.3-44.2); Mean Corpuscular HGB Conc 33.9 g/dl (32-36); Mean Corpuscular Hemoglobin 29.6 pg (26-34); Mean Corpuscular Volume 87.1 fl (80-100); Mean Platelet Volume 8.3 fl (7.4-10.4); Monocytes Absolute Auto 0.6 K/mm3 (0.1-0.6); Monocytes Percent Auto 8.5 % (2.6-8.5); Neutrophils Absolute Auto 4.9 K/mm3 (1.3-6.7); Neutrophils Percent Auto 65.5 % (45.5-73.1); Platelet Count Result 384 k/mm3 (150-375); Red Blood Count 5.21 M/mm3 (4.6-6.20); Red Cell Distribution Width 12.5 % (11.5-14.5); White Blood Count 7.5 K/mm3 (4.5-10.0)
--- NOTE | 2021-02-11 08:58 | PC.NURSE ---
pt. felt faint after drawing blood in triage at 0845, XRAY came to take him for a scan, I asked him if he was fine to stand into the wheelchair and pt said yes then had a little stumble trying to stand and get into the wheelchair
[2021-02-11 09:03] LABS: Prothrombin Time 12.7 Seconds (11.1-14.7)
[2021-02-11 09:04] LABS: Alanine Aminotransferase 58 U/L (4-50); Alkaline Phosphatase 97 U/L (38-126); Anion Gap 11 mmol/L (8-16); Aspartate Amino Transferase 35 U/L (17-59); Bilirubin,Total 0.7 mg/dL (0.2-1.3); Blood Urea Nitrogen 11 mg/dL (9-20); Calcium 9.1 mg/dL (8.4-10.2); Carbon Dioxide 25 mmol/L (22-30); Chloride 100 mmol/L (98-107); Estimated CRCL calculation 100 ml/min; Estimated Glomerular Filt Rate > 60; Glucose 103 mg/dL (65-110); Lipase 230 U/L (23-300); Partial Thromboplastin Time 29.9 SECONDS (22.3-36.8); Potassium 4.3 mmol/L (3.4-5.0); Sodium 136 mmol/L (137-145)
[2021-02-11 09:15] LABS: Troponin I < 0.012 ng/mL (0.000-0.034)
--- NOTE | 2021-02-11 09:16 | PC.NURSE ---
at 0845 pt felt faint after getting blood drawn in triage, XRAY came to take him to get a scan in a wheelchair, I asked him if he was fine to stand up and get into the wheelchair with my assistance and pt said yes but had a little stumble getting into the chair. pt. had no complaints
== END 2021-02-12 01:04 | disposition left against medical advice (07) ==
PROVIDERS: Emergency Provider Emergency Medicine; PCP Physician Assistant
DX: R07.9 Chest pain, unspecified (principal)
CPT/HCPCS: 36415; 71046; 80053; 83690; 84484; 85025; 85610; 85730; 93005; 99199

== ENCOUNTER 2021-02-13 17:07 | Emergency (ER) | payer OTHER, SELFPAY ==
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
[2021-02-13 17:14] VITALS: BP 125/78; PULSE 98; RESP 18; TEMP 36.4; O2SAT 96
== END 2021-02-13 17:41 | disposition home or self-care (01) ==
PROVIDERS: Emergency Provider Nurse Practitioner Family
DX: T21.22XA Burn of second degree of abdominal wall, initial encounter (principal); X10.0XXA Contact with hot drinks, initial encounter; Z87.891 Personal history of nicotine dependence; K21.9 Gastro-esophageal reflux disease without esophagitis; Z86.73 Personal history of transient ischemic attack (TIA), and cerebral infarction without residual deficits
CPT/HCPCS: 87070; 87205; 99213; G0463

== ENCOUNTER 2021-02-19 15:04 | Emergency (ER) | payer OTHER, SELFPAY ==
[2021-02-19] VITALS (14 sets, daily range): BP systolic 111–126; BP diastolic 82–92; PULSE 74–100; RESP 9–27; TEMP 36.7; O2SAT 95–99
--- NOTE | ~2021-02-19 | XR_ITS ---
EXAMINATION: XR chest 2V EXAM DATE: 02/19/2021 15:32 INDICATION: Lt Sided Chest Pain/ Flu Like Symptoms X 1 Week, COVID 01/18 . TECHNIQUE: Frontal and lateral projections of the chest obtained and reviewed. Comparison is made to prior examination from 02/11/2021. FINDINGS: Moderate amount of bilateral airspace disease consistent with subacute COVID pneumonia, mil d improvement compared to prior study. No evidence of pneumothorax. No pleural effusion. Cardiomedias tinal silhouette is normal. There are no osseous abnormalities identified. IMPRESSION: Moderate subacute COVID pneumonia, mild improvement. Reviewed, dictated and finalized at location [facility]. TECHNICIAN
--- NOTE | 2021-02-19 15:05 | ECG_ITS ---
Measurements Intervals [place] Rate: 98 P: 75 [place]: 151 QRS: 23 QRSD: 102 T: 64 QT: 334 QTc: 427 Interpretive Statements SINUS RHYTHM BASELINE ARTIFACT- V4 NORMAL ECG Electronically Signed On 02-19-2021 15:40:51 MARKETING RESEARCH INTERN by Дмитрий Goff D.O.
--- NOTE | 2021-02-19 15:22 | PC.NURSE ---
Pt. to front office clerk stating I am septic how can ou put me in the waiting room when I am showing signs of sepsis? Pt. VSS
[2021-02-19 16:28] LABS: Basophils Percent Auto 0.6 % (0.2-1.2); Eosinophils Absolute Auto 0.1 K/mm3 (0-0.3); Hematocrit 44.8 % (42.0-52.0); Hemoglobin 15.2 g/dL (14.0-18.0); Immature Granulocyte Absolute 0.02 K/mm3 (0.00-0.031); Immature Granulocyte Percent A 0.3 % (0-0.5); Lymphocytes Absolute Auto 1.16 K/mm3 (0.9-3.2); Lymphocytes Percent Auto 16.9 % (18.3-44.2); Mean Corpuscular HGB Conc 33.9 g/dl (32-36); Mean Corpuscular Hemoglobin 29.5 pg (26-34); Mean Platelet Volume 8.9 fl (7.4-10.4); Monocytes Absolute Auto 0.5 K/mm3 (0.1-0.6); Monocytes Percent Auto 7.4 % (2.6-8.5); Neutrophils Percent Auto 72.8 % (45.5-73.1); Platelet Count Result 253 k/mm3 (150-375); Red Blood Count 5.15 M/mm3 (4.6-6.20); Red Cell Distribution Width 13.1 % (11.5-14.5); White Blood Count 6.9 K/mm3 (4.5-10.0)
[2021-02-19 16:37] LABS: Alanine Aminotransferase 38 U/L (4-50); Albumin Level 4.2 g/dL (3.5-5.1); Alkaline Phosphatase 75 U/L (38-126); Anion Gap 6 mmol/L (8-16); Aspartate Amino Transferase 32 U/L (17-59); Blood Urea Nitrogen 10 mg/dL (9-20); Calcium 9.1 mg/dL (8.4-10.2); Carbon Dioxide 27 mmol/L (22-30); Chloride 104 mmol/L (98-107); Estimated CRCL calculation 107 ml/min; Estimated Glomerular Filt Rate > 60; Glucose 95 mg/dL (65-110); INR 1.1; Lipase 148 U/L (23-300); Prothrombin Time 13.6 Seconds (11.1-14.7); Sodium 137 mmol/L (137-145)
[2021-02-19 16:38] LABS: Partial Thromboplastin Time 30.6 SECONDS (22.3-36.8)
[2021-02-19 16:49] LABS: Troponin I < 0.012 ng/mL (0.000-0.034)
--- NOTE | 2021-02-19 17:04 | ED.CHESTPAIN ---
HPI - Chest Pain General Chief Complaint: Chest Pain Stated Complaint: Shortness of breath, chest pressure Time Seen by Provider: 02/19/21 16:23 Source: patient and RN notes reviewed Mode of arrival: ambulatory Limitations: no limitations History of Present Illness HPI narrative: Patient is 50 years old white male presented to the ED complaining of feeling septic and feeling flulike symptoms. Patient denies any fever, chills, nausea, vomiting. Patient complaining of feeling weird, chest pain, may be shortness of breath, questionable yellow discharge in the stool for the last few weeks since he been diagnosed of COVID January 18, 2021. Patient lives alone, denies any smoking, drinking, using drugs. Related Data Home Medications Medication Instructions Recorded Confirmed acetaminophen [Mapap Arthritis 1,300 mg PO PRN PRN 10/19/20 02/13/21 Pain] gabapentin 300 mg PO TID 10/19/20 02/07/21 doxycycline hyclate 02/13/21 Allergies Allergy/AdvReac Type Severity Reaction Status Date / Time No Known Allergies Allergy Verified 02/13/21 17:12 Review of Systems Review of Systems: CONSTITUTIONAL: Denies fever, chills, or sweats. EYES: Denies visual changes, redness, or discharge. ENT: Denies rhinorrhea, congestion, sore throat, or otalgia. CARDIOVASCULAR: Denies chest pain, palpitations, or edema. RESPIRATORY: Denies cough or dyspnea. GASTROINTESTINAL: Denies abdominal pain, nausea, vomiting, or diarrhea. GENITOURINARY: Denies dysuria or hematuria. SKIN: Denies rash or itching. MUSCULOSKELETAL: Denies back pain, joint pain, or myalgia. NEUROLOGIC: Denies headache, numbness, or weakness. PSYCHIATRIC: Denies anxiety or depression. [facility] Past Medical History Medical History Anxiety GERD (gastroesophageal reflux disease) TIA (transient ischemic attack) Surgical History Surgical History No history of previous surgery Family History Family History Mother Ovarian ca Father COPD (chronic obstructive pulmonary disease) Social History Social History Smoking status: Former smoker Tobacco type: cigarettes Second hand tobacco smoke exposure: Yes Additional smoking assessment comments: pt states that he only smoked from time to time and quit many years ago Alcohol intake: never Substance use: never Substance use type: does not use Additional occupation/education comments: 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 Gender identity (if verbalized by the patient): Male Exam Narrative: General appearance: Well-developed, well-nourished Skin: Second-degree burn to the abdomen, for the last few weeks under managed by a x ray technologist Head: Normocephalic, nontraumatic Eyes: Clear conjunctiva ENT: Oropharynx normal, ears normal, nose normal Neck: Supple, nontender Chest and respiratory: Airway patent, no respiratory distress, no accessory muscle use Heart: Regular rate/rhythm Abdomen: Soft, nontender, no organomegaly, quiet bowel sounds Vascular: Normal peripheral pulses, normal capillary refill. 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
[2021-02-19 18:00] LABS: D Dimer 0.72 ug/mL (<0.48)
== END 2021-02-19 18:00 | disposition home or self-care (01) ==
PROVIDERS: Emergency Medicine; Emergency Provider Emergency Medicine
DX: F41.9 Anxiety disorder, unspecified (principal); U09.9 Post COVID-19 condition, unspecified; K21.9 Gastro-esophageal reflux disease without esophagitis
CPT/HCPCS: 36415; 71046; 80053; 83690; 84484; 85025; 85380; 85610; 85730; 93005; 99284

== ENCOUNTER 2021-02-25 13:38 | Emergency (ER) | payer OTHER, SELFPAY ==
[2021-02-25 13:48] VITALS: BP 109/76; PULSE 91; RESP 18; TEMP 36.6; O2SAT 96
--- NOTE | 2021-02-25 13:49 | ED.MALEGU ---
HPI - Male Genitourinary General Chief complaint: Urogenital-Male Stated complaint: Possible UTI Source: patient Limitations: no limitations History of Present Illness HPI Narrative: 50-year-old male presented for complaint of burning with urination x2 days. He denies urinary frequency, hematuria, urgency, odor, abdominal pain, flank pain, fever or chills. States he has been using a urinal for the past month after diagnosis of COVID, and states he would sometimes fall asleep while using urinal causing spilling, this happened about 2 days ago which he attributes to the UTI sx. Of note, he endorses undergoing treatment for secondary burn to the lower abdomen. Related Data Home Medications Medication Instructions Recorded Confirmed No Home Medications 02/25/21 02/25/21 Allergies Allergy/AdvReac Type Severity Reaction Status Date / Time No Known Allergies Allergy Verified 02/25/21 13:47 Review of Systems Review of Systems: CONSTITUTIONAL: Denies body aches, fever, chills, or sweats. CARDIOVASCULAR: Denies chest pain, palpitations, or edema. RESPIRATORY: Denies cough or dyspnea. GASTROINTESTINAL: Denies abdominal pain, nausea, vomiting, or diarrhea. GENITOURINARY: Reports dysuria, denies frequency, urgency, hematuria, flank pain SKIN: Denies rash, itching; Endorses abdominal burn wounds MUSCULOSKELETAL: Denies back pain or myalgia. [facility] Past Medical History Medical History Anxiety GERD (gastroesophageal reflux disease) TIA (transient ischemic attack) Surgical History Surgical History No history of previous surgery Family History Family History Mother Ovarian ca Father COPD (chronic obstructive pulmonary disease) Social History Social History Smoking status: Former smoker Tobacco type: cigarettes Second hand tobacco smoke exposure: Yes Additional smoking assessment comments: pt states that he only smoked from time to time and quit many years ago Alcohol intake: never Substance use: never Substance use type: does not use Additional occupation/education comments: 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 Gender identity (if verbalized by the patient): Male Comments At time of signature, I have reviewed and agree with nursing past medical, surgical, social and family history unless otherwise noted. Please see nursing chart for further information. There is no relevant family history pertinent to the presenting complaint Exam Narrative: GENERAL: Well-appearing and in no acute distress. HEAD: Normocephalic EYES: EOMI. No redness or drainage. ENT: Mucous membranes pink and moist. NECK: Normal AROM. Supple. CHEST: No respiratory distress. Clear to auscultation. HEART: Regular rate and rhythm. ABDOMEN: Soft, nontender, nondistended, normal active bowel sounds. No CVA tenderness MUSCULOSKELETAL: No bony tenderness. SKIN: Warm, dry; lower abdominal burn/scars and open areas, left lower abd covered with home knee pad to keep drainage from sticking, appears green/granulation, no odor NEURO: No focal deficits. Alert and oriented x3. Gait steady. PSYCH: Normal affect. No signs of depression or anxiety. Course Course Emergency Course: Patient is aware of diagnosis, understands and agrees to treatment plan. Anticipatory guidance given. Patient agrees to follow-up as directed and is aware of reasons to seek care at the emergency department. Portions of this record may have been created with voice recognition software Level of Care: Express Care Visit Vital Signs Vital signs: Vital Signs Temperature 97.8 F 02/25/21 13:48 Pulse Rate 91 02/25/21 13:48 Respiratory Rate 18 02/25/21 13:48 Blood Pressure 109/76 02/25/21 13:48 Pulse Ox
== END 2021-02-25 14:50 | disposition home or self-care (01) ==
PROVIDERS: Emergency Provider Nurse Practitioner Family; PCP Physician Assistant
DX: R30.0 Dysuria (principal); Z87.891 Personal history of nicotine dependence; F41.9 Anxiety disorder, unspecified; K21.9 Gastro-esophageal reflux disease without esophagitis; Z86.73 Personal history of transient ischemic attack (TIA), and cerebral infarction without residual deficits
CPT/HCPCS: 81003; 87086; 99213; G0463

== ENCOUNTER 2021-02-27 17:50 | Emergency (ER) | payer OTHER, SELFPAY ==
[2021-02-27 17:59] VITALS: BP 113/74; PULSE 92; RESP 16; TEMP 36; O2SAT 97
--- NOTE | 2021-02-27 18:10 | ED.GENADULT ---
HPI - General Adult General Chief complaint: Urogenital-Male Stated complaint: URINARY PAIN Time Seen by Provider: 02/27/21 18:11 Source: patient, RN notes reviewed and old records reviewed Mode of arrival: ambulatory Limitations: no limitations History of Present Illness HPI narrative: 50-year-old male who presents to [facility] with complaint of pain to his penis which he states that it really started hurting again this afternoon. Patient reports he was seen few days ago for penis discomfort and a urine specimen was done at that time with culture showing no growth. Patient states he had COVID last month and was using a urinal and urinal spilled back onto him and he laid in that for several hours and he just knows he has bacteria in his penis. Patient reports that he had no pain yesterday but this afternoon his pain returned but states he has not taken any medication OTC for his discomfort. Patient has no fever chills, or sweats, denies any testicle pain, burning with urination,denies any suprapubic or flank pain.He does reports some urinary frequency. He states that he has not followed up or made appt with PCP since last visit. MD complaint: Penis pain Onset (ago): day(s) (1) Related Data Allergies Allergy/AdvReac Type Severity Reaction Status Date / Time No Known Allergies Allergy Verified 02/27/21 18:36 Review of Systems Review of Systems: CONSTITUTIONAL: Denies fever, chills, or sweats. EYES: Denies visual changes, redness, or discharge. ENT: Denies rhinorrhea, congestion, sore throat, or otalgia. CARDIOVASCULAR: Denies chest pain, palpitations, or edema. RESPIRATORY: Denies cough or dyspnea. GASTROINTESTINAL: Denies abdominal pain, nausea, vomiting, or diarrhea. GENITOURINARY: Denies dysuria or hematuria. reports penis pain and urinary frequency SKIN: Denies rash or itching. MUSCULOSKELETAL: Denies back pain, joint pain, or myalgia. NEUROLOGIC: Denies headache, numbness, or weakness. PSYCHIATRIC: Positive for history of anxiety or depression. All systems reviewed & are unremarkable except as noted in HPI and below PMFSH Past Medical History Medical History Anxiety GERD (gastroesophageal reflux disease) TIA (transient ischemic attack) Surgical History Surgical History No history of previous surgery Family History Family History Mother Ovarian ca Father COPD (chronic obstructive pulmonary disease) Social History Social History Smoking status: Former smoker Tobacco type: cigarettes Second hand tobacco smoke exposure: Yes Additional smoking assessment comments: pt states that he only smoked from time to time and quit many years ago Alcohol intake: never Substance use: never Substance use type: does not use Additional occupation/education comments: 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 Gender identity (if verbalized by the patient): Male Comments At time of signature, agree with nursing past medical, surgical, social and family history. There is no relevant family history pertinent to the presenting complaint Exam Narrative: GENERAL: Well-appearing, well-nourished, and in no acute distress. HEAD: Normocephalic, atraumatic. EYES: PERRLA and EOMI. ENT: Nares clear, no rhinorrhea or epistaxis. Mucous membranes moist.TMs normal , throat pink with no lesions or exudates, no tonsil swelling or enlargement NECK: Supple. no lymphadenopathy CHEST: Clear to auscultation. No respiratory distress.SAO2 97% on room air HEART: Regular rate and rhythm. No murmur heard. Normal peripheral pulses. ABDOMEN: Soft, nontender, nondistended, normal active bowel sounds. Reports urinary frequency and penis discomfort, seen 2 days ago in clinic and urine done and culture returned with no gr
== END 2021-02-27 18:36 | disposition home or self-care (01) ==
PROVIDERS: Emergency Provider Registered Nurse; PCP Physician Assistant
DX: N34.2 Other urethritis (principal); Z87.891 Personal history of nicotine dependence; K21.9 Gastro-esophageal reflux disease without esophagitis; Z86.73 Personal history of transient ischemic attack (TIA), and cerebral infarction without residual deficits
CPT/HCPCS: 99213; G0463

== ENCOUNTER 2021-03-04 15:30 | Emergency (ER) | payer OTHER, SELFPAY ==
[2021-03-04 15:32] VITALS: BP 116/77; PULSE 96; RESP 16; TEMP 35.9; O2SAT 97
--- NOTE | 2021-03-04 15:55 | ED.FEMALEGU ---
HPI - Female Genitourinary General Chief complaint: Urogenital-Male Stated complaint: PAINFUL URINATION Time Seen by Provider: 03/04/21 15:48 Source: patient, RN notes reviewed and old records reviewed Mode of arrival: ambulatory Limitations: no limitations Related Data Allergies Allergy/AdvReac Type Severity Reaction Status Date / Time No Known Allergies Allergy Verified 03/03/21 08:15 [facility] Past Medical History Medical History Anxiety BMI 23.0-23.9, adult GERD (gastroesophageal reflux disease) TIA (transient ischemic attack) Surgical History Surgical History No history of previous surgery Family History Family History Mother Ovarian ca Father COPD (chronic obstructive pulmonary disease) Sibling No problems noted. 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 Gender identity (if verbalized by the patient): Male Course Vital Signs Vital signs: Vital Signs Temperature 35.9 C L 03/04/21 15:32 Pulse Rate 96 03/04/21 15:32 Respiratory Rate 16 03/04/21 15:32 Blood Pressure 116/77 03/04/21 15:32 Pulse Oximetry 97 03/04/21 15:32 Temperature 35.9 C L 03/04/21 15:32 Pulse Rate 96 03/04/21 15:32 Respiratory Rate 16 03/04/21 15:32 Blood Pressure 116/77 03/04/21 15:32 Pulse Oximetry 97 03/04/21 15:32 MDM - Female Genitourinary Lab Data Labs: Urine Glucose Negative Reference Range: Negative Urine Bilirubin Negative Reference Range: Negative Urine Ketone Negative Reference Range: Negative Urine Specific [place] 1.015 Reference Range:1.001-1.035 Urine Blood Negative Reference Range: Negative * * Urine pH 5.5 Reference Range: 5.0-9.0 Urine Protein Negative Reference Range: Negative Urine Urobilinogen 0.2 Reference Range: 0.2-1.0 Urine Nitrate Negative Reference Range: Negative Urine Leukocyte Negative Reference Range: Negative Urine Color Yellow Reference Range: Yellow Urine Characteristics Clear Urine Characteristics Clear Discharge Plan Discharge Clinical Impression: Burning with urination Patient Disposition: Home, Self-Care Condition: Stable Instructions: Antibiotic Form Additional Instructions: Increase fluids especially cranberry juice and water Avoid caffeine and carbonated beverages Medicine as directed--cautioned it will cause your urine to be bright o
--- NOTE | 2021-03-04 16:14 | ED.MALEGU ---
HPI - Male Genitourinary General Chief complaint: Urogenital-Male Stated complaint: PAINFUL URINATION Time Seen by Provider: 03/04/21 15:48 Source: patient, RN notes reviewed and old records reviewed Mode of arrival: ambulatory Limitations: no limitations History of Present Illness HPI Narrative: 50 year old male who presents to express care today with complaints of urinary burning pain and hesitancy and requests repeat urine specimen. Patient was seen yesterday at Dr Tate's office and saw nurse practitioner there and is scheduled to have ultrasound on his scrotum on Wednesday and then follow up on the at Dr Tate's office. Patient was seen on the in out clinic and again in clinic on the for urinary complaints. Patient denies any lesions,or drainage from penis, states no concern for STD exposure. MD Complaint: other (urinary burning) Onset (ago): week(s) (2) Duration: intermittent Related Data Allergies Allergy/AdvReac Type Severity Reaction Status Date / Time No Known Allergies Allergy Verified 03/03/21 08:15 Review of Systems Review of Systems: CONSTITUTIONAL: Denies fever, chills, or sweats. EYES: Denies visual changes, redness, or discharge. ENT: Denies rhinorrhea, congestion, sore throat, or otalgia. CARDIOVASCULAR: Denies chest pain, palpitations, or edema. RESPIRATORY: Denies cough or dyspnea. GASTROINTESTINAL: Denies abdominal pain, nausea, vomiting, or diarrhea. GENITOURINARY: Positive for dysuria. burning and hesitancy of urination no visible hematuria. SKIN: Denies rash or itching. healing chanel to lower abdomen with scabbing. MUSCULOSKELETAL: Denies back pain, joint pain, or myalgia. NEUROLOGIC: Denies headache, numbness, or weakness. PSYCHIATRIC: Denies anxiety or depression. All systems reviewed & are unremarkable except as noted in HPI and below PMFSH Past Medical History Medical History Anxiety BMI 23.0-23.9, adult GERD (gastroesophageal reflux disease) TIA (transient ischemic attack) Surgical History Surgical History No history of previous surgery Family History Family History Mother Ovarian ca Father COPD (chronic obstructive pulmonary disease) Sibling No problems noted. 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 Gender identity (if verbalized by the patient): Male Exam Narrative: GENERAL: Well-appearing, well-nourished, and in no acute distress. HEAD: Normocephalic, atraumatic. EYES: PERRLA and EOMI. ENT: Nares clear, no rhinorrhea or epistaxis. Mucous membranes moist.TM's normal throat pink with no lesions or exudates no tonsil enlargement. NECK: Supple.no lymphadenopathy CHEST: Clear to auscultation. No respiratory distress.SAO2 97% on room air HEART: Regular rate and rhythm. No murmur heard. Normal peripheral pulses. ABDOMEN: Soft, nontender, nondistended, normal active bowel sounds, has healing burning on lower abdomen with some scabbing noted no drainage noted. patient voices tenderness to mid penis and states burning with urination, saw PCP office yesterday ad is scheduled for ultrasound on Wednesday with follow up on with PCP for possible referral to urology. Patient denies any suprapubic tenderness or any flank pain, denies any testicle pain or tenderness, no penis drainage or lesi
== END 2021-03-04 16:23 | disposition home or self-care (01) ==
PROVIDERS: Emergency Provider Registered Nurse; PCP Family Medicine
DX: R30.0 Dysuria (principal); K21.9 Gastro-esophageal reflux disease without esophagitis; Z86.73 Personal history of transient ischemic attack (TIA), and cerebral infarction without residual deficits; Z72.0 Tobacco use
CPT/HCPCS: 81003; 99213; G0463

== ENCOUNTER 2021-03-04 16:53 | Emergency (ER) | payer OTHER, SELFPAY ==
--- NOTE | ~2021-03-04 | US_ITS ---
US scrotum doppler DATE: 03/04/2021 18:10 INDICATION: Penile pain for 2 weeks TECHNIQUE: Real-time and color flow imaging and Doppler analysis of the scrotal contents COMPARISON: 08/16/2020 CT abdomen pelvis FINDINGS: Right testicle measures 4.5 x 2.4 x 3.1 cm. Left testicle measures 4 x 2.1 x 2.9 cm. No loraine ticular mass lesion or torsion is evident. There is symmetric testicular vascularity. 3.4 L cyst of the head of the right epididymis. No hydrocele or varicocele is demonstrated. IMPRESSION: No significant abnormality Reviewed, dictated and finalized at Location [facility]. Reviewed, dictated and finalized at location A. ATOLOGY NURSE PRACTITIONER IMPRESSION: No significant abnormality
[2021-03-04 17:02] VITALS: BP 134/62; PULSE 84; RESP 14; TEMP 36.6; O2SAT 98
--- NOTE | 2021-03-04 20:53 | ED.GENADULT ---
HPI - General Adult General Chief complaint: Urogenital-Male <Yolanda Dejesus PA-C - Last Filed: 03/04/21 20:59> Stated complaint: scrotal pain <RODO Hyatt Last Filed: 03/04/21 20:59> Time Seen by Provider: 03/04/21 17:22 <Yolanda Dejesus PA-C - Last Filed: 03/04/21 20:59> Source: patient <RODO Hyatt Last Filed: 03/04/21 20:59> Mode of arrival: ambulatory <RODO Hyatt Last Filed: 03/04/21 20:59> Limitations: no limitations <RODO Hyatt Last Filed: 03/04/21 20:59> History of Present Illness HPI narrative: Patient is a 50-year-old male with chief complaint of concern for his scrotum and penis after the patient tried to squeeze blood from his scrotum into his penis due to difficulty with sensation and erections. He states his PCP ordered a scrotal ultrasound but it is delayed so he came to the ER. He denies urinary difficulty or penile discharge. He denies concern for STD. <Yolanda Dejesus PA-C - Last Filed: 03/04/21 20:59> Related Data Allergies/adverse reactions: Allergies Allergy/AdvReac Type Severity Reaction Status Date / Time No Known Allergies Allergy Verified 03/03/21 08:15 <Yolanda Dejesus PA-C - Last Filed: 03/04/21 20:59> Review of Systems Review of Systems: CONSTITUTIONAL: Denies fever, chills, or sweats. EYES: Denies visual changes, redness, or discharge. ENT: Denies rhinorrhea, congestion, sore throat, or otalgia. CARDIOVASCULAR: Denies chest pain, palpitations, or edema. RESPIRATORY: Denies cough or dyspnea. GASTROINTESTINAL: Denies abdominal pain, nausea, vomiting, or diarrhea. GENITOURINARY: Reports scrotal pain and penile difficulties denies dysuria or hematuria. SKIN: Denies rash or itching. MUSCULOSKELETAL: Denies back pain, joint pain, or myalgia. NEUROLOGIC: Denies headache, numbness, dizziness, or weakness. PSYCHIATRIC: Denies anxiety or depression. <Yolanda Dejesus PA-C - Last Filed: 03/04/21 20:59> [facility] Past Medical History Medical History: Medical History Anxiety BMI 23.0-23.9, adult GERD (gastroesophageal reflux disease) TIA (transient ischemic attack) <Yolanda Dejesus PA-C - Last Filed: 03/04/21 20:59> Surgical History Surgical History: Surgical History No history of previous surgery <Yolanda Dejesus PA-C - Last Filed: 03/04/21 20:59> Family History Family History: Family History Mother Ovarian ca Father COPD (chronic obstructive pulmonary disease) Sibling No problems noted. 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 Gender identity (if verbalized by the patient): Male <Yolanda Dejesus PA-C - Last Filed: 03/04/21 20:59> Exam Narrative: GENERAL: Well-appearing, well-nourished, and in no acute distress. HEAD: Normocephalic, atraumatic. EYES: PERRLA and EOMI. CHEST: Clear to auscultation. No respiratory distress. No wheezes rales or rhonchi HEART: Regular rate and rhythm. No murmur heard. Normal peripheral pulses. ABDOMEN: Healing burn lezama to lower abdomen. Soft, nontender, nondistended, normal active bowel sounds. GENITAL EXAM: REFUSED BY PATIENT. EXTREMITIES: Normal range of motion. No edema.
[2021-03-04 20:58] VITALS: BP 134/78; PULSE 78; RESP 16; TEMP 36.8; O2SAT 100
== END 2021-03-04 20:59 | disposition home or self-care (01) ==
PROVIDERS: Emergency Provider Emergency Medicine; PCP Family Medicine
DX: N48.89 Other specified disorders of penis (principal); Z87.891 Personal history of nicotine dependence; K21.9 Gastro-esophageal reflux disease without esophagitis; Z86.73 Personal history of transient ischemic attack (TIA), and cerebral infarction without residual deficits
CPT/HCPCS: 76870; 81003; 93976; 99284

== ENCOUNTER 2021-03-11 18:40 | Emergency (ER) | payer OTHER, SELFPAY ==
[2021-03-11 18:45] VITALS: BP 108/75; PULSE 84; RESP 16; TEMP 36.8; O2SAT 99
--- NOTE | 2021-03-11 18:48 | ED.SKABFB ---
HPI - Skin/Abscess/Foreign Bdy General Chief complaint: Skin/Abscess/Foreign Body Stated complaint: facial rash Time Seen by Provider: 03/11/21 18:48 Source: patient and RN notes reviewed Mode of arrival: ambulatory Limitations: no limitations History of Present Illness HPI narrative: 50-year-old male presents concern for a painful bump below his nose and his mustache reports the symptoms have been present for 1 day. He reports it is tender to touch, denies drainage. He denies any other rash, bumps. MD complaint: abscess/boil Related Data Home Medications Medication Instructions Recorded Confirmed gabapentin 03/11/21 hydroxyzine HCl 03/11/21 Allergies Allergy/AdvReac Type Severity Reaction Status Date / Time No Known Allergies Allergy Verified 03/03/21 08:15 Review of Systems Review of Systems: CONSTITUTIONAL: Denies malaise, chills, sweats, or fever. SKIN: Reports a tender bump under his left nare in his mustache. MUSCULOSKELETAL: Denies myalgia. NEUROLOGIC: Denies headache. All systems reviewed & are unremarkable except as noted in HPI and below PMFSH Past Medical History Medical History Anxiety BMI 23.0-23.9, adult GERD (gastroesophageal reflux disease) TIA (transient ischemic attack) Surgical History Surgical History No history of previous surgery Family History Family History Mother Ovarian ca Father COPD (chronic obstructive pulmonary disease) Sibling No problems noted. 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 Gender identity (if verbalized by the patient): Male Comments At time of signature, agree with nursing past medical, surgical, social and family history. There is no relevant family history pertinent to the presenting complaint Exam Narrative: GENERAL: Well-appearing, well-nourished, and in no acute distress. HEAD: Normocephalic, atraumatic. EYES: PERRLA, sclera clear ENT: Mucous membranes moist. Oropharynx erythema or lesions. NECK: Supple. No lymphadenopathy CHEST: Clear to auscultation. No respiratory distress. HEART: Regular rate and rhythm. SKIN: Warm, dry. 0.5 cm raised area of induration, erythema with central pustule consistent with folliculitis NEURO: Alert and oriented x3. PSYCH: Normal mood and affect Course Course Emergency Course: Patient is aware of diagnosis, understands and agrees to treatment plan. Anticipatory guidance given. Patient agrees to follow-up as directed and is aware of reasons to seek care at the emergency department. Portions of this record may have been created with voice recognition software Level of Care: Express Care Visit Vital Signs Vital signs: Reviewed. MDM - Skin/Abscess/Foreign Bdy MDM Narrative Medical decision making narrative: Does not appear at this time to be erythema multiforme, bullous, SJS, TEN; no evidence at this time to suggest RMSF, endocarditis or Lyme disease; patient looks well, nontoxic and is tolerating oral intake; no neurologic signs or symptoms; no headache, photophobia or neck pain; afebrile; appropriate for initial outpatient treatment; discussed the importance of follow-up, patient agrees; question, viral exanthema, contact dermatitis, allergic dermatitis, eczema, urticaria, folliculitis, cellulitis, abscess. N
== END 2021-03-11 19:19 | disposition home or self-care (01) ==
PROVIDERS: Emergency Provider Nurse Practitioner; PCP Family Medicine
DX: L73.9 Follicular disorder, unspecified (principal); Z87.891 Personal history of nicotine dependence; K21.9 Gastro-esophageal reflux disease without esophagitis; Z86.73 Personal history of transient ischemic attack (TIA), and cerebral infarction without residual deficits; F41.9 Anxiety disorder, unspecified
CPT/HCPCS: 99213; G0463

== ENCOUNTER 2021-05-17 12:12 | Emergency (ER) | payer OTHER, SELFPAY ==
--- NOTE | ~2021-05-17 | XR_ITS ---
EXAMINATION: XR sacrum coccyx min 2V EXAM DATE: 05/17/2021 13:11 INDICATION: Fall 01/2021; continues with coccygeal pain. TECHNIQUE: Sacrococcygeal frontal, inlet, lateral projections. There is no prior study for compariso n. FINDINGS: Sacrum, sacroiliac joints, sacral arcuate lines are intact. There are no acute fractures o r dislocations identified. There is no subcutaneous gas. The soft tissue is unremarkable. There a re no radiopaque foreign bodies. There is mild to moderate mid and lower lumbar facet arthropathy. IMPRESSION: No acute osseous findings. Reviewed, dictated and finalized at location A. IMPRESSION: No acute osseous findings.
[2021-05-17 12:28] VITALS: BP 119/68; PULSE 63; RESP 12; TEMP 36.8; O2SAT 98
--- NOTE | 2021-05-17 13:01 | ED.ABDPAIN ---
HPI - Abdominal Pain General Chief Complaint: Abdominal Pain Stated Complaint: rectal pain Source: patient Mode of arrival: ambulatory Limitations: no limitations History of Present Illness HPI narrative: Patient presents for evaluation of discomfort in the skin surrounding his anus for the last few days. He indicates he has abrasions in the affected area. He used the camera on his phone to take pictures. He states that this is related to wiping too hard after having a bowel movement. He denies any bleeding. No rectal pain or change in bowel pattern. He is wondering whether he can apply neosporin or how to proceed with treatment. He is also requesting an x ray of his coccyx. He states he fell in January and landed on his buttocks. He has experienced pain in coccyx since that time. No descriptive quality or numerical rating to the pain. Related Data Home Medications Medication Instructions Recorded Confirmed gabapentin 05/17/21 paroxetine HCl mg PO 05/17/21 Allergies Allergy/AdvReac Type Severity Reaction Status Date / Time No Known Allergies Allergy Verified 05/17/21 12:28 Review of Systems Review of Systems: CONSTITUTIONAL: Denies fever, chills, or sweats. EYES: Denies visual changes, redness, or discharge. ENT: Denies rhinorrhea, congestion, sore throat, or otalgia. CARDIOVASCULAR: Denies chest pain, palpitations, or edema. RESPIRATORY: Denies cough or dyspnea. GASTROINTESTINAL: Denies abdominal pain, nausea, vomiting, or diarrhea. GENITOURINARY: Denies dysuria or hematuria. SKIN: Reports abrasions to skin surrounding anus MUSCULOSKELETAL: Reports pain in coccyx. Denies back pain, joint pain, or myalgia. NEUROLOGIC: Denies headache, numbness, dizziness, or weakness. PSYCHIATRIC: Denies anxiety or depression. [facility] Past Medical History Medical History Anxiety BMI 23.0-23.9, adult Burn of abdominal wall Degenerative, intervertebral disc, cervical GERD (gastroesophageal reflux disease) TIA (transient ischemic attack) Surgical History Surgical History No history of previous surgery Family History Family History Mother Ovarian ca Father COPD (chronic obstructive pulmonary disease) Sibling No problems noted. 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 Gender identity (if verbalized by the patient): Male Exam Narrative: GENERAL: Well-appearing, well-nourished, and in no acute distress. HEAD: Normocephalic, atraumatic. EYES: PERRLA and EOMI. ENT: Nares clear, no rhinorrhea or epistaxis. Mucous membranes moist. Oropharynx without tonsillar hypertrophy exudate or other lesions. Bilateral TMs pearly nascimento nonbulging NECK: Supple. No adenopathy or masses. No carotid bruits or JVD CHEST: Clear to auscultation. No respiratory distress. No wheezes rales or rhonchi HEART: Regular rate and rhythm. No murmur heard. Normal peripheral pulses. ABDOMEN: Soft, nontender, nondistended, normal active bowel sounds. EXTREMITIES: Normal range of motion. No edema. SKIN: There are several small superficial abrasions to the mucosa surrounding the anus all approximately 1-2 mm in size. There is no associated erythema, fluctuance or induration. Warm, dry, no rash. NEURO: No focal deficits. Alert and oriented x3
== END 2021-05-17 13:24 | disposition home or self-care (01) ==
PROVIDERS: Emergency Provider Nurse Practitioner; PCP Family Medicine
DX: S30.817A Abrasion of anus, initial encounter (principal); X58.XXXA Exposure to other specified factors, initial encounter; S30.0XXA Contusion of lower back and pelvis, initial encounter; W19.XXXA Unspecified fall, initial encounter; K21.9 Gastro-esophageal reflux disease without esophagitis; Z86.73 Personal history of transient ischemic attack (TIA), and cerebral infarction without residual deficits; M50.30 Other cervical disc degeneration, unspecified cervical region; F41.9 Anxiety disorder, unspecified
CPT/HCPCS: 72220; 99213; G0463

== ENCOUNTER 2021-06-20 16:54 | Emergency (ER) | payer OTHER, SELFPAY ==
[2021-06-20 17:01] VITALS: BP 103/80; PULSE 69; RESP 16; TEMP 36.4; O2SAT 99
--- NOTE | 2021-06-20 17:06 | ED.SKABFB ---
HPI - Skin/Abscess/Foreign Bdy General Chief complaint: Skin/Abscess/Foreign Body Stated complaint: WORMS IN STOOL Time Seen by Provider: 06/20/21 17:06 Source: patient Mode of arrival: ambulatory Limitations: no limitations History of Present Illness HPI narrative: 50-year-old male presented for complaint of anal irritation, he states I think I have pinworms. Endorses itching and burning. He thinks he saw pinworms in his stool about 3 weeks ago, he is concerned he may have eaten bad sushi. Also states he thinks he has brain inflammation from the pinworms. He denies associated nausea, vomiting, diarrhea, abdominal pain, hematochezia, melena, weight loss, or disrupted sleep. Related Data Home Medications Medication Instructions Recorded Confirmed acetaminophen 500 mg tablet 500 mg PO Q6H 05/26/21 05/26/21 Allergies Allergy/AdvReac Type Severity Reaction Status Date / Time No Known Allergies Allergy Verified 05/26/21 15:02 Review of Systems Review of Systems: CONSTITUTIONAL: Denies body aches, fever, chills, or sweats. EYES: Denies visual changes, redness, or discharge. ENT: Denies rhinorrhea, congestion, sore throat, or otalgia. CARDIOVASCULAR: Denies chest pain, palpitations, or edema. RESPIRATORY: Denies cough or dyspnea. GASTROINTESTINAL: Denies abdominal pain, nausea, vomiting, or diarrhea. GENITOURINARY: Denies dysuria or hematuria. SKIN: endorses anal itching MUSCULOSKELETAL: Denies back pain, joint pain, or myalgia. NEUROLOGIC: Denies headache, numbness, tingling, or weakness. PSYCH: Denies depression or anxiety. [facility] Past Medical History Medical History (Updated 06/20/21 @ 17:18 by Nhung Muniz APRN) Anxiety BMI 23.0-23.9, adult Burn of abdominal wall Chronic pain Coccygeal pain, acute Constipation Degenerative, intervertebral disc, cervical Depression Dizziness GERD (gastroesophageal reflux disease) TIA (transient ischemic attack) Surgical History Surgical History No history of previous surgery Family History Family History Mother Ovarian ca Father COPD (chronic obstructive pulmonary disease) Sibling No problems noted. 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 Gender identity (if verbalized by the patient): Male Comments At time of signature, I have reviewed and agree with nursing past medical, surgical, social and family history unless otherwise noted. Please see nursing chart for further information. There is no relevant family history pertinent to the presenting complaint Exam Narrative: GENERAL: Well-appearing HEAD: Normocephalic, atraumatic. EYES: conjunctivae clear, and EOMI. ENT: Mucous membranes moist. NECK: Supple. No lymphadenopathy CHEST: Clear to auscultation. No respiratory distress. HEART: Regular rate and rhythm. SKIN: Warm, dry. Pt declined perirectal exam. NEURO: Alert and oriented x3. Course Course Emergency Course: Patient is aware of diagnosis, understands and agrees to treatment plan. Anticipatory guidance given. Patient agrees to follow-up as directed and is aware of reasons to seek care at the emergency department. Portions of this record may have been created with voice recognition software Level of Care: Express Care Visit Vital Signs Vital signs: Vital Signs Temperature 97.6 F 06/20/21 17:01 Pulse Rate 69 06/20/21 17:01 Res
== END 2021-06-20 17:21 | disposition home or self-care (01) ==
PROVIDERS: Emergency Provider Nurse Practitioner Family; PCP Family Medicine
DX: K62.89 Other specified diseases of anus and rectum (principal); K21.9 Gastro-esophageal reflux disease without esophagitis; Z86.73 Personal history of transient ischemic attack (TIA), and cerebral infarction without residual deficits
CPT/HCPCS: 99211; G0463

== ENCOUNTER 2021-07-18 15:51 | Emergency (ER) | payer OTHER, SELFPAY ==
[2021-07-18 15:53] VITALS: BP 117/71; PULSE 75; RESP 16; TEMP 36.4; O2SAT 99
--- NOTE | 2021-07-18 15:58 | ED.BACK ---
HPI - Back Pain/Injury General Chief Complaint: Back Pain/Injury Stated Complaint: BACK PAIN Time Seen by Provider: 07/18/21 16:08 Source: patient, RN notes reviewed and old records reviewed Mode of arrival: ambulatory Limitations: no limitations History of Present Illness HPI Narrative: Patient presents to express care with numerous concern ranging from low back pain with no known injury, headaches, concern of worms in his stool, his kidney's, and his creatinine. Patient reports that he has really bad low back pain for several days and he has a headache just like when he had COVID previously and wants tested to make sure he doesn't have COVID. Patient reports that he has had anal itching and he had order for stool specimen that he took to [facility] on the but he doesn't have test results back yet. He reports that he went to the ER in [place] and they ran tests and he did get referral to [facility] for complaints of anxiety and depression. Patient noted history of depression in the past no refill of Paxil or Hydroxyzine since February of 2021. MD elicited complaint: back pain Pertinent past history: other (anxiety and depression) Related Data Home Medications Medication Instructions Recorded Confirmed acetaminophen 500 mg tablet 500 mg PO Q6H 05/26/21 05/26/21 Allergies Allergy/AdvReac Type Severity Reaction Status Date / Time No Known Allergies Allergy Verified 07/08/21 08:08 [facility] Past Medical History Medical History (Updated 07/19/21 @ 19:10 by Sara Gill NP) Anxiety BMI 23.0-23.9, adult Burn of abdominal wall Chronic pain Coccygeal pain, acute Constipation Degenerative, intervertebral disc, cervical Depression Dizziness GERD (gastroesophageal reflux disease) TIA (transient ischemic attack) Surgical History Surgical History No history of previous surgery Family History Family History Mother Ovarian ca Father COPD (chronic obstructive pulmonary disease) Sibling No problems noted. 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 Gender identity (if verbalized by the patient): Male Comments At time of signature, agree with nursing past medical, surgical, social and family history. There is no relevant family history pertinent to the presenting complaint Exam Narrative: GENERAL: Well-appearing, well-nourished, and in no acute distress. HEAD: Normocephalic, atraumatic. EYES: PERRLA and EOMI. ENT: Nares clear, no rhinorrhea or epistaxis. Mucous membranes moist.TM's normal with good light reflex, throat pink with no lesions or exudates NECK: Supple.no lymphadenopathy CHEST: Clear to auscultation. No respiratory distress.SAO2 99% on room air HEART: Regular rate and rhythm. No murmur heard. Normal peripheral pulses. ABDOMEN: Soft, nontender, nondistended, normal active bowel sounds. EXTREMITIES: Normal range of motion. No edema. reports low back pain on the right side with no pain down legs, no difficulty passing urine or stool. SKIN: Warm, dry, no rash. NEURO: No focal deficits. Alert and oriented x3. Course Course Level of Care: Express Care Visit Vital Signs Vital signs: Vital Signs Temperature 36.4 C L 07/18/21 15:53 Pulse Rate 75 07/18/21 15:53 Respiratory Rate 16 07/18/21 15:53 Blood Pressure 117/71 07/18/21 15:53 Pulse Oximetry 99 07/18/21 15:53 Oxygen Delivery Room Air 07/18/21 15:53
== END 2021-07-18 16:58 | disposition home or self-care (01) ==
PROVIDERS: Emergency Provider Registered Nurse; PCP Family Medicine
DX: G89.29 Other chronic pain (principal); M54.50 Low back pain, unspecified; F41.9 Anxiety disorder, unspecified; F32.A Depression, unspecified; Z20.822 Contact with and (suspected) exposure to COVID-19; Z87.891 Personal history of nicotine dependence; K21.9 Gastro-esophageal reflux disease without esophagitis; Z86.73 Personal history of transient ischemic attack (TIA), and cerebral infarction without residual deficits; M50.30 Other cervical disc degeneration, unspecified cervical region
CPT/HCPCS: 87426; 99213; C9803; G0463

== ENCOUNTER 2021-07-28 15:22 | Emergency (ER) | payer OTHER, SELFPAY ==
--- NOTE | ~2021-07-28 | XR_ITS ---
XR chest 2V DATE: 07/28/2021 15:51 INDICATION: Shortness of breath for one week. Chest pain. Anxiety. TECHNIQUE: PA and lateral views COMPARISON: 02/19/2021 PA and lateral chest FINDINGS: There is bilateral hyperinflation including increased retrosternal airspace and relative fl attening of the diaphragm, suggesting COPD. There is resolution of bilateral pulmonary infiltrates si nce 02/19/2021. No pulmonary infiltrate or consolidation, pleural effusion or pulmonary vascular conge stion or pneumothorax. Normal heart size. No hilar or mediastinal enlargement. IMPRESSION: Bilateral hyperinflation suggesting COPD Resolution of bilateral pulmonary infiltrates since 02/19/2021 Reviewed, dictated and finalized at location A.
--- NOTE | 2021-07-28 15:24 | ED.SOB ---
HPI - SOB/Dyspnea General Chief Complaint: Shortness of Breath/Dyspnea Stated Complaint: shortness of breath Time Seen by Provider: 07/28/21 15:24 Source: patient Mode of arrival: ambulatory Limitations: no limitations History of Present Illness HPI Narrative: Mr. Desir is a 50-year-old male patient presenting to the clinic today with complaints of shortness of breath x2 weeks. He reports that he has a nonproductive cough. States that he does have some chest pressure and congestion on the left side of his chest. States that he does have a runny nose and some postnasal drip going on. Has not taken his home medications for 2 weeks as he thought that this may be causing an allergic reaction that is causing shortness of breath. He is requesting a chest x-ray, a test for asthma, and a COVID test. He had taken a COVID test 2 weeks ago and that was negative but he wants to be retested today. He denies any fever or chills. He is very anxious and speech is rapid. His oxygen saturation is 100% on room air. Related Data Home Medications Medication Instructions Recorded Confirmed acetaminophen 500 mg tablet 500 mg PO Q6H 05/26/21 07/28/21 Allergies Allergy/AdvReac Type Severity Reaction Status Date / Time No Known Allergies Allergy Verified 07/28/21 15:32 Review of Systems Review of Systems: Pertinent positives per HPI. Patient denies any fever, chills, rash, headache, visual changes, dizziness, sore throat, shortness of breath, chest pain, palpitations, nausea, vomiting, diarrhea, constipation, abdominal pain, or any urinary issues. [facility] Past Medical History Medical History Anxiety BMI 23.0-23.9, adult Burn of abdominal wall Chronic pain Coccygeal pain, acute Constipation Degenerative, intervertebral disc, cervical Depression Dizziness GERD (gastroesophageal reflux disease) TIA (transient ischemic attack) Surgical History Surgical History No history of previous surgery Family History Family History Mother Ovarian ca Father COPD (chronic obstructive pulmonary disease) Sibling No problems noted. 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 Gender identity (if verbalized by the patient): Male Comments At the time of my signature, I reviewed and agree with the nursing past medical, surgical, social, and family history. There is no relevant family history pertinent to the patient complaint. Exam Narrative: General: Well-developed, well nourished, in no apparent distress Head: Normocephalic, atraumatic Eyes: Pupils equally round and reactive to light bilaterally, EOM intact, sclera and conjunctive clear, no discharge, lids normal Ears: TMs intact and clear, ear canals clear, no drainage, grossly hearing normal. Nose: Nares patent, clear discharge, mild inflammation, no sinus tenderness. Mouth: Oropharynx without lesions or masses, good dentition, MMM. Post nasal drip Neck: Supple, trachea midline, no enlargement of anterior or posterior cervical nodes, no thyroid masses or goiter palpable. Cardio: Regular rate and rhythm, s1 and s2 normal, no murmur appreciated. Resp: Clear to auscultation bilaterally anteriorly and posteriorly, no rhonchi, rales, wheezing or rubs Course Course Emergency Course: Portions of this record may
[2021-07-28 15:26] VITALS: BP 121/82; PULSE 83; RESP 20; TEMP 36.7; O2SAT 100
--- NOTE | 2021-07-28 15:38 | ECG_ITS ---
Measurements Intervals [place] Rate: 71 P: 66 SC: 188 QRS: 1 QRSD: 109 T: 67 QT: 373 QTc: 406 Interpretive Statements SINUS RHYTHM NORMAL ECG COMPARED TO ECG 02/19/2021 15:11:07 NO SIGNIFICANT CHANGES Electronically Signed On 07-28-2021 16:18:14 CDT by Carroll Michelle M.D.
== END 2021-07-28 16:21 | disposition home or self-care (01) ==
PROVIDERS: Emergency Provider Nurse Practitioner Family; PCP Family Medicine
DX: F41.9 Anxiety disorder, unspecified (principal); R09.82 Postnasal drip; J30.9 Allergic rhinitis, unspecified; J44.9 Chronic obstructive pulmonary disease, unspecified; Z20.822 Contact with and (suspected) exposure to COVID-19; Z87.891 Personal history of nicotine dependence; M47.812 Spondylosis without myelopathy or radiculopathy, cervical region; K21.9 Gastro-esophageal reflux disease without esophagitis; Z86.73 Personal history of transient ischemic attack (TIA), and cerebral infarction without residual deficits
CPT/HCPCS: 71046; 87426; 93005; 99213; C9803; G0463

== ENCOUNTER 2021-08-01 17:00 | Emergency (ER) | payer OTHER, SELFPAY ==
[2021-08-01 17:08] VITALS: BP 119/91; PULSE 67; RESP 16; TEMP 36.8; O2SAT 100
--- NOTE | 2021-08-01 17:39 | ED.SOB ---
HPI - SOB/Dyspnea General Chief Complaint: Shortness of Breath/Dyspnea Stated Complaint: shortness of breath Time Seen by Provider: 08/01/21 17:40 Source: patient, RN notes reviewed and old records reviewed History of Present Illness HPI Narrative: 50-year-old male presents to [facility] care with complaints of shortness of breath and needs a referral for pulmonary. Patient speaks in full sentences displays no tachypnea or any shortness of breath SaO2 100% on room air. 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 Patient is afebrile with lungs clear to auscultation, no cough or wheezing verbalized, no nasal congestion or drainage or any other ill symptoms verbalized. MD elicited complaint: shortness of breath (patient reports) Treatment prior to arrival: other (inhaler ordered on ) Related Data Home Medications Medication Instructions Recorded Confirmed acetaminophen 500 mg tablet 500 mg PO Q6H 05/26/21 07/28/21 Allergies Allergy/AdvReac Type Severity Reaction Status Date / Time No Known Allergies Allergy Verified 07/28/21 15:32 Review of Systems Review of Systems: CONSTITUTIONAL: Denies fever, chills, or sweats. EYES: Denies visual changes, redness, or discharge. ENT: Denies rhinorrhea, congestion, sore throat, or otalgia. CARDIOVASCULAR: Denies chest pain, palpitations, or edema. RESPIRATORY: Denies cough reports dyspnea. GASTROINTESTINAL: Denies abdominal pain, nausea, vomiting, or diarrhea. GENITOURINARY: Denies dysuria or hematuria. SKIN: Denies rash or itching. MUSCULOSKELETAL: Denies back pain, joint pain, or myalgia. NEUROLOGIC: Denies headache, numbness, or weakness. PSYCHIATRIC:Positive history of anxiety or depression. [facility] Past Medical History Medical History Anxiety BMI 23.0-23.9, adult Burn of abdominal wall Chronic pain Coccygeal pain, acute Constipation Degenerative, intervertebral disc, cervical Depression Dizziness GERD (gastroesophageal reflux disease) TIA (transient ischemic attack) Surgical History Surgical History No history of previous surgery Family History Family History Mother Ovarian ca Father COPD (chronic obstructive pulmonary disease) Sibling No problems noted. 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 Gender identity (if verbalized by the patient): Male Comments At time of signature, agree with nursing past medical, surgical, social and family history. There is no relevant family history pertinent to the presenting complaint Exam Narrative: GENERAL: Well-appearing, well-nourished, and in no acute distress. HEAD: Normocephalic, atraumatic. EYES: PERRLA and EOMI. ENT: Nares clear, no rhinorrhea or epistaxis. Mucous membranes moist.TM's normal with good light reflex, throat pink with no lesions or exudates, no tonsil swelling NECK: Supple. no lymphadenopathy CHEST: Clear to auscultation. No respiratory distress.SAO2 100% on room air speaks in full sentences, no cough noted or any tachypnea HEART: Regular rate and rhythm. No murmur heard. Normal peripheral pulses. ABDOMEN: Soft, nontender, nondistended, normal active bowel sounds. EXTREMITIES: Normal range of motion. No lorrie
== END 2021-08-01 18:06 | disposition home or self-care (01) ==
PROVIDERS: Emergency Provider Registered Nurse
DX: J44.9 Chronic obstructive pulmonary disease, unspecified (principal); Z87.891 Personal history of nicotine dependence; M47.812 Spondylosis without myelopathy or radiculopathy, cervical region; K21.9 Gastro-esophageal reflux disease without esophagitis; Z86.73 Personal history of transient ischemic attack (TIA), and cerebral infarction without residual deficits
CPT/HCPCS: 99211; G0463

== ENCOUNTER 2021-09-30 18:00 | Emergency (ER) | payer OTHER, SELFPAY ==
[2021-09-30 18:09] VITALS: BP 110/87; PULSE 75; RESP 16; TEMP 36.5; O2SAT 100
--- NOTE | 2021-09-30 18:46 | ED.BACK ---
HPI - Back Pain/Injury General Chief Complaint: Back Pain/Injury Stated Complaint: TAILBONE PAIN Time Seen by Provider: 09/30/21 18:40 Source: patient, RN notes reviewed and old records reviewed Mode of arrival: ambulatory Limitations: no limitations History of Present Illness HPI Narrative: 51-year-old male who presents to [facility] care with complaints of tailbone pain. Patient denies any injury to area or fall, states that he has had x-rays and that there was no fracture to area or dislocations. Patient reports that his pain to his tail bone has progressively being more painful and he thinks that he may have an infection or a virus in his tailbone. he reports that he needs an antibiotic. Nothing else has fixed his pain. He reports that he has to sit on a donut because of his discomfort. MD elicited complaint: other (reported tail bone pain) Pertinent past history: other (convinced he has something seriously wrong with his tail bone) Onset (ago): month(s) (several) Pain scale (0-10): 4 Similar Symptoms Previously: Yes Related Data Home Medications Medication Instructions Recorded Confirmed acetaminophen 500 mg tablet 500 mg PO Q6H 05/26/21 09/30/21 Allergies Allergy/AdvReac Type Severity Reaction Status Date / Time No Known Allergies Allergy Verified 08/19/21 08:27 Review of Systems Review of Systems: CONSTITUTIONAL: Denies fever, chills, or sweats. EYES: Denies visual changes, redness, or discharge. ENT: Denies rhinorrhea, congestion, sore throat, or otalgia. CARDIOVASCULAR: Denies chest pain, palpitations, or edema. RESPIRATORY: Denies cough or dyspnea. GASTROINTESTINAL: Denies abdominal pain, nausea, vomiting, or diarrhea. GENITOURINARY: Denies dysuria or hematuria, report urine steam is somewhat decreased SKIN: Denies rash or itching. MUSCULOSKELETAL: Denies back pain, report ongoing coccyx pain,or myalgia. NEUROLOGIC: Denies headache, numbness, or weakness. PSYCHIATRIC:History of anxiety or depression. All systems reviewed & are unremarkable except as noted in HPI and below [facility] Past Medical History Medical History (Updated 10/01/21 @ 00:01 by Background Daemon) Anxiety BMI 23.0-23.9, adult Burn of abdominal wall Chronic pain Coccygeal pain, acute Constipation Degenerative, intervertebral disc, cervical Depression Dizziness GERD (gastroesophageal reflux disease) Shortness of Breath Sleep disturbance TIA (transient ischemic attack) Surgical History Surgical History No history of previous surgery Family History Family History Mother Ovarian ca Father COPD (chronic obstructive pulmonary disease) Sibling No problems noted. Social History Social History Social History: Patient states he smoked briefly as a teenager. 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 Gender identity (if verbalized by the patient): Male Exam Narrative: GENERAL: Well-appearing, well-nourished, and in no acute distress. HEAD: Normocephalic, atraumatic. EYES: PERRLA and EOMI. ENT: Nares clear, no rhinorrhea or epistaxis. Mucous membranes moist.TM's normal throat pink with no lesions or tonsil swelling NECK: Supple.no lymphadenopathy CHEST: Clear to auscultation. No respiratory distress.SAO2 100% on room air HEART: Regular rate and rhythm. No murmur heard. Normal peripheral pulses. ABDOMEN: Soft, nontender, nondistended,
== END 2021-09-30 19:05 | disposition home or self-care (01) ==
PROVIDERS: Emergency Provider Registered Nurse
DX: M53.3 Sacrococcygeal disorders, not elsewhere classified (principal); Z87.891 Personal history of nicotine dependence; K21.9 Gastro-esophageal reflux disease without esophagitis; Z86.73 Personal history of transient ischemic attack (TIA), and cerebral infarction without residual deficits; F41.9 Anxiety disorder, unspecified; F32.A Depression, unspecified
CPT/HCPCS: 99213; G0463

== ENCOUNTER 2021-10-27 08:09 | Emergency (ER) | payer OTHER, SELFPAY ==
[2021-10-27 08:19] VITALS: BP 106/75; PULSE 71; RESP 16; TEMP 36.8; O2SAT 98
--- NOTE | 2021-10-27 08:19 | ED.GENADULT ---
HPI - General Adult General Chief complaint: Dental/Oral Stated complaint: tailbone pain and sore on lip Time Seen by Provider: 10/27/21 08:20 Mode of arrival: ambulatory Limitations: no limitations History of Present Illness HPI narrative: 51-year-old male presents for multiple concerns. He reports he has been injury to his right inner lower lip from biting it. He reports he bit last week and then bit it again. Reports its painful, he is worried about infection. He denies any other oral sores, pain. In a separate complaint he reports ongoing coccygeal pain. He reports he has been seen multiple times at multiple different facilities for this pain. He reports he has had imaging including CT scans, ultrasounds with no findings. He reports he is recently lost quite a bit of weight from cutting fat from his diet. He denies any redness, swelling, warmth to the area. He denies general malaise, fever, body aches, chills. MD complaint: Tailbone pain, oral injury Related Data Home Medications Medication Instructions Recorded Confirmed acetaminophen 500 mg tablet 500 mg PO Q6H 05/26/21 10/27/21 Allergies Allergy/AdvReac Type Severity Reaction Status Date / Time No Known Allergies Allergy Verified 10/27/21 08:17 Review of Systems Review of Systems: CONSTITUTIONAL: Denies malaise, chills, sweats, or fever. EYES: Denies visual changes CARDIOVASCULAR: Denies chest pain, palpitations, or edema. RESPIRATORY: Denies cough or dyspnea. GASTROINTESTINAL: Denies abdominal pain, nausea, vomiting SKIN: Reports a sore on the inside of his lower lip MUSCULOSKELETAL: Reports coccygeal pain NEUROLOGIC: Denies numbness, weakness All systems reviewed & are unremarkable except as noted in HPI and below [facility] Past Medical History Medical History (Updated 10/27/21 @ 08:46 by Flavia Genao NP) Anxiety BMI 23.0-23.9, adult Burn of abdominal wall Chronic pain Coccygeal pain, acute Constipation Degenerative, intervertebral disc, cervical Depression Dizziness GERD (gastroesophageal reflux disease) Shortness of Breath Sleep disturbance TIA (transient ischemic attack) Surgical History Surgical History No history of previous surgery Family History Family History Mother Ovarian ca Father COPD (chronic obstructive pulmonary disease) Sibling No problems noted. Social History Social History Social History: Patient states he smoked briefly as a teenager. 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 Gender identity (if verbalized by the patient): Male Comments At time of signature, agree with nursing past medical, surgical, social and family history. There is no relevant family history pertinent to the presenting complaint Exam Narrative: GENERAL: Well-appearing and in no acute distress. HEAD: Normocephalic, atraumatic. EYES: PERRLA, sclera clear, and EOMI. ENT: Nares clear. Mucous membranes moist. Traumatic oral lesion in the right inner lower lip approximately 0.5 cm diameter NECK: Supple. CHEST: No respiratory distress. Speaks in full sentences. HEART: Regular rate and rhythm. No murmur heard. Normal peripheral pulses. EXTREMITIES: Grossly normal range of motion. No edema. SKIN: Warm, dry, no visible rash. NEURO: Alert and oriented x3. PSYCH: Normal mood and affect Course Course Emergency Course: Discussed with shabana
== END 2021-10-27 08:34 | disposition home or self-care (01) ==
PROVIDERS: Emergency Provider Nurse Practitioner; PCP Family Medicine
DX: M53.3 Sacrococcygeal disorders, not elsewhere classified (principal); K12.30 Oral mucositis (ulcerative), unspecified; K21.9 Gastro-esophageal reflux disease without esophagitis; Z86.73 Personal history of transient ischemic attack (TIA), and cerebral infarction without residual deficits; Z87.891 Personal history of nicotine dependence; G89.29 Other chronic pain
CPT/HCPCS: 99213; G0463

== ENCOUNTER 2021-10-28 18:17 | Emergency (ER) | payer OTHER, SELFPAY ==
--- NOTE | 2021-10-28 18:22 | ED.SKABFB ---
HPI - Skin/Abscess/Foreign Bdy General Chief complaint: Skin/Abscess/Foreign Body Stated complaint: bug bite on abdomnen Time Seen by Provider: 10/28/21 18:22 Source: patient and RN notes reviewed History of Present Illness HPI narrative: Patient is a 51-year-old male who presents the urgent care with complaints of possible bug bite to the left abdomen. Patient states it became very itchy approximately 3 days ago and then he noticed the rash. Patient states that it stings. States that he has follow-up with Dr. Dutta regarding this and he has been using mupirocin. He is only spoke on the phone with Dr. Dutta and has not seen him in the office. Patient denies any history of shingles. States that it does feel like a burning tingling sensation. No other acute complaints. No acute distress noted. Patient aware of the plan of care. Some parts of this dictation were generated by voice recognition software and may contain typographical and/or grammatical inaccuracies. Related Data Home Medications Medication Instructions Recorded Confirmed acetaminophen 500 mg tablet 500 mg PO Q6H 05/26/21 10/27/21 Allergies Allergy/AdvReac Type Severity Reaction Status Date / Time No Known Allergies Allergy Verified 10/27/21 08:17 Review of Systems Review of Systems: CONSTITUTIONAL: Denies fever, chills, or sweats. EYES: Denies visual changes, redness, or discharge. ENT: Denies rhinorrhea, congestion, sore throat, or otalgia. CARDIOVASCULAR: Denies chest pain, palpitations, or edema. RESPIRATORY: Denies cough or dyspnea. GASTROINTESTINAL: Denies abdominal pain, nausea, vomiting, or diarrhea. GENITOURINARY: Denies dysuria or hematuria. SKIN: Reports of possible bug bites to the left abdomen MUSCULOSKELETAL: Denies back pain, joint pain, or myalgia. NEUROLOGIC: Denies headache, numbness, or weakness. All other systems reviewed are negative, except as documented in HPI. [facility] Past Medical History Medical History (Updated 10/28/21 @ 18:39 by CHARLES Westbrook) Anxiety BMI 23.0-23.9, adult Burn of abdominal wall Chronic pain Coccygeal pain, acute Constipation Degenerative, intervertebral disc, cervical Depression Dizziness GERD (gastroesophageal reflux disease) Shortness of Breath Sleep disturbance TIA (transient ischemic attack) Surgical History Surgical History No history of previous surgery Family History Family History Mother Ovarian ca Father COPD (chronic obstructive pulmonary disease) Sibling No problems noted. Social History Social History Social History: Patient states he smoked briefly as a teenager. 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 Gender identity (if verbalized by the patient): Male Comments At the time of my signature, I reviewed and agree with the nursing past medical, surgical, social, and family history. There is no relevant family history pertinent to the patient complaint. Exam Narrative: GENERAL: This is a well-nourished, well-developed patient, in no apparent distress. HEAD: normocephalic, atraumatic. EYES: PERRL. Sclera clear/white. Vision is grossly intact. EARS: External ears normal NOSE: External nose normal with no obvious nasal discharge, nares without redness, no rhinorrhea. THROAT: Mucous membranes moist NECK: Neck supple SKIN: Vesicular/blistery dermatitis noted to the
[2021-10-28 18:27] VITALS: BP 122/84; PULSE 75; RESP 16; TEMP 36.8; O2SAT 98
== END 2021-10-28 18:45 | disposition home or self-care (01) ==
PROVIDERS: Emergency Provider Nurse Practitioner Family; PCP Family Medicine
DX: B02.9 Zoster without complications (principal); Z87.891 Personal history of nicotine dependence; K21.9 Gastro-esophageal reflux disease without esophagitis; Z86.73 Personal history of transient ischemic attack (TIA), and cerebral infarction without residual deficits
CPT/HCPCS: 99213; G0463

== ENCOUNTER 2021-10-30 13:00 | Emergency (ER) | payer OTHER, SELFPAY ==
[2021-10-30 13:08] VITALS: BP 114/74; PULSE 72; RESP 16; TEMP 36.7; O2SAT 98
--- NOTE | 2021-10-30 13:18 | ED.SKABFB ---
HPI - Skin/Abscess/Foreign Bdy General Chief complaint: Skin/Abscess/Foreign Body Stated complaint: lump under chin Time Seen by Provider: 10/30/21 13:19 Source: patient Mode of arrival: ambulatory Limitations: no limitations History of Present Illness HPI narrative: 51 y/o male presented for c/o skin redness to right chin for about 5 days Site is tender. He states it could be insect related or due to wearing cloth face mask for about 3 weeks before washing. He has been applying mupirocin to site. Also tries to squeeze it without relief. No itching or drainage to the site. Requesting strong antibiotic. Of note he was seen at [facility] 10/27 and 10/28 without report of complaint at this site. Related Data Home Medications Medication Instructions Recorded Confirmed acetaminophen 500 mg tablet 500 mg PO Q6H 05/26/21 10/27/21 Allergies Allergy/AdvReac Type Severity Reaction Status Date / Time No Known Allergies Allergy Verified 10/27/21 08:17 Review of Systems Review of Systems: CONSTITUTIONAL: Denies body aches, fever, chills, or sweats. EYES: Denies visual changes, redness, or discharge. ENT: Denies rhinorrhea, congestion CARDIOVASCULAR: Denies chest pain, palpitations, or edema. RESPIRATORY: Denies cough or dyspnea. GASTROINTESTINAL: Denies abdominal pain, nausea, vomiting, or diarrhea. SKIN: reports red area to chin MUSCULOSKELETAL: Denies back pain, joint pain, or myalgia. NEUROLOGIC: Denies headache, numbness, tingling, or weakness. [facility] Past Medical History Medical History Anxiety BMI 23.0-23.9, adult Burn of abdominal wall Chronic pain Coccygeal pain, acute Constipation Degenerative, intervertebral disc, cervical Depression Dizziness GERD (gastroesophageal reflux disease) Shortness of Breath Sleep disturbance TIA (transient ischemic attack) Surgical History Surgical History No history of previous surgery Family History Family History Mother Ovarian ca Father COPD (chronic obstructive pulmonary disease) Sibling No problems noted. Social History Social History Social History: Patient states he smoked briefly as a teenager. 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 Gender identity (if verbalized by the patient): Male Comments At time of signature, I have reviewed and agree with nursing past medical, surgical, social and family history unless otherwise noted. Please see nursing chart for further information. There is no relevant family history pertinent to the presenting complaint Exam Narrative: GENERAL: Well-appearing EYES: conjunctivae clear, and EOMI. ENT: Mucous membranes moist. Oropharynx without edema, erythema or lesions. CHEST: Clear to auscultation. HEART: Regular rate and rhythm. SKIN: Right submental chin area with approx 1cm diameter area of firm red subcutaneous abscess, no fluctuance, induration, or active drainage, appears to be superficial. left lower abdomen with scabbed linear lesions in the scarring area; no surrounding erythema NEURO: Alert and oriented x3. Course Course Emergency Course: Patient is aware of diagnosis, understands and agrees to treatment plan. Anticipatory guidance given. Patient agrees to follow-up as directed and is aware of reasons to seek care at the emergency department. [place]
== END 2021-10-30 13:35 | disposition home or self-care (01) ==
PROVIDERS: Emergency Provider Nurse Practitioner Family; PCP Family Medicine
DX: L02.01 Cutaneous abscess of face (principal); K21.9 Gastro-esophageal reflux disease without esophagitis; Z86.73 Personal history of transient ischemic attack (TIA), and cerebral infarction without residual deficits
CPT/HCPCS: 99213; G0463

== ENCOUNTER 2021-11-20 13:11 | Emergency (ER) | payer OTHER, SELFPAY ==
--- NOTE | 2021-11-20 13:14 | ED.ABDPAIN ---
HPI - Abdominal Pain General Chief Complaint: Abdominal Pain Stated Complaint: RIB PAIN Time Seen by Provider: 11/20/21 13:14 Source: patient and RN notes reviewed History of Present Illness HPI narrative: Patient is a 51-year-old male who presents the urgent care with complaints of a right upper abdominal/lower rib pain. Patient states that it started yesterday and he has not taken anything for his pain. Denies of any injury or trauma to the chest wall. Patient states that he was diagnosed 7 months ago with a large gallstone and was told to follow a specific diet to decrease his chances of pain and inflammation. Patient states that yesterday he ate really crappy and believes he may have inflamed or infected his gallbladder. Patient has not called his primary care doctor. Patient denies any nausea, vomiting, fever or radiation of the pain. No other acute complaints. No acute distress noted. Patient aware of the plan of care. Some parts of this dictation were generated by voice recognition software and may contain typographical and/or grammatical inaccuracies. Related Data Home Medications Medication Instructions Recorded Confirmed acetaminophen 500 mg tablet 500 mg PO Q6H 05/26/21 10/27/21 duloxetine 30 mg capsule,delayed mg PO 11/20/21 release paroxetine HCl 20 mg tablet mg PO 11/20/21 Allergies Allergy/AdvReac Type Severity Reaction Status Date / Time No Known Allergies Allergy Verified 11/20/21 13:18 Review of Systems Review of Systems: CONSTITUTIONAL: Denies fever, chills, or sweats. EYES: Denies visual changes, redness, or discharge. ENT: Denies rhinorrhea, congestion, sore throat, or otalgia. CARDIOVASCULAR: Denies chest pain, palpitations, or edema. RESPIRATORY: Denies cough or dyspnea. GASTROINTESTINAL: Reports of right upper quadrant pain without nausea, vomiting or diarrhea GENITOURINARY: Denies dysuria or hematuria. SKIN: Denies rash or itching. MUSCULOSKELETAL: Denies back pain, joint pain, or myalgia. NEUROLOGIC: Denies headache, numbness, or weakness. All other systems reviewed are negative, except as documented in HPI. [facility] Past Medical History Medical History Anxiety BMI 23.0-23.9, adult Burn of abdominal wall Chronic pain Coccygeal pain, acute Constipation Degenerative, intervertebral disc, cervical Depression Dizziness GERD (gastroesophageal reflux disease) Shortness of Breath Sleep disturbance TIA (transient ischemic attack) Surgical History Surgical History No history of previous surgery Family History Family History Mother Ovarian ca Father COPD (chronic obstructive pulmonary disease) Sibling No problems noted. Social History Social History Social History: Patient states he smoked briefly as a teenager. 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 Gender identity (if verbalized by the patient): Male Comments At the time of my signature, I reviewed and agree with the nursing past medical, surgical, social, and family history. There is no relevant family history pertinent to the patient complaint. Exam Narrative: GENERAL: This is a well-nourished, well-developed patient, in no apparent distress. HEAD: normocephalic, atraumatic. EYES: PERRL. Sclera clear/white. Vision is grossly intact. EARS: External ears normal
[2021-11-20 13:20] VITALS: BP 138/86; PULSE 65; RESP 16; TEMP 36.4; O2SAT 100
== END 2021-11-20 13:30 | disposition home or self-care (01) ==
PROVIDERS: Emergency Provider Nurse Practitioner Family; PCP Family Medicine
DX: R10.11 Right upper quadrant pain (principal); Z87.19 Personal history of other diseases of the digestive system; Z87.891 Personal history of nicotine dependence; K21.9 Gastro-esophageal reflux disease without esophagitis; Z86.73 Personal history of transient ischemic attack (TIA), and cerebral infarction without residual deficits; F41.9 Anxiety disorder, unspecified; F32.A Depression, unspecified
CPT/HCPCS: 99211; G0463

== ENCOUNTER 2021-12-16 08:59 | Emergency (ER) | payer OTHER, SELFPAY ==
--- NOTE | ~2021-12-16 | XR_ITS ---
EXAMINATION: XR shoulder LT min 2V DATE: 12/16/2021 09:22 INDICATION: Left shoulder pain TECHNIQUE: AP internally and externally rotated and AP oblique externally rotated views of the left s houlder were obtained. COMPARISON: None FINDINGS: Normal alignment. No fracture.Mild glenohumeral osteoarthritis with mild cephalad predominant nonuni form joint space narrowing and tiny marginal osteophytes about the humeral head. Minimal acromioclavi cular osteoarthritis. Visualized portion of the lungs are clear. Soft tissues are unremarkable. 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 Reviewed, dictated and finalized at location A. [facility] [employer]
--- NOTE | 2021-12-16 09:02 | ED.EXTPRO ---
HPI - Extremity Problem General Chief complaint: Extremity Injury, Upper Stated complaint: sore in mouth; lt shoulder injury Time Seen by Provider: 12/16/21 08:59 Source: patient Mode of arrival: ambulatory Limitations: no limitations History of Present Illness HPI Narrative: Mr. Adams is a 51-year-old male patient presenting to the clinic today with complaints of a sore in his mouth and left shoulder pain/injury. He reports he has had the canker sore for 4 days and is gradually getting worse. States that is mildly tender. Also reports several months of left shoulder pain. Hurts when he lays on his left shoulder. He thinks that there may be something wrong with his rotator cuff. He also reports some numbness and tingling going down the arm but he does have a history of some herniated disc. He feels as though he is weaker in the left arm with hand grasp Related Data Home Medications Medication Instructions Recorded Confirmed acetaminophen 500 mg tablet 500 mg PO Q6H 05/26/21 11/20/21 Allergies Allergy/AdvReac Type Severity Reaction Status Date / Time No Known Allergies Allergy Verified 11/21/21 16:01 Review of Systems Review of Systems: Pertinent positives per HPI. Patient denies any fever, chills, rash, headache, visual changes, dizziness, cough, runny nose, sore throat, shortness of breath, chest pain, palpitations, nausea, vomiting, diarrhea, constipation, abdominal pain, or any urinary issues. [facility] Past Medical History Medical History Anxiety BMI 23.0-23.9, adult Burn of abdominal wall Chronic pain Coccygeal pain, acute Constipation Degenerative, intervertebral disc, cervical Depression Dizziness GERD (gastroesophageal reflux disease) Shortness of Breath Sleep disturbance TIA (transient ischemic attack) Surgical History Surgical History No history of previous surgery Family History Family History Mother Ovarian ca Father COPD (chronic obstructive pulmonary disease) Sibling No problems noted. Social History Social History Social History: Patient states he smoked briefly as a teenager. 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 Gender identity (if verbalized by the patient): Male Comments At the time of my signature, I reviewed and agree with the nursing past medical, surgical, social, and family history. There is no relevant family history pertinent to the patient complaint. Exam Narrative: General: Well-developed, well nourished, in no apparent distress Head: Normocephalic, atraumatic Eyes: Pupils equally round and reactive to light bilaterally, EOM intact, sclera and conjunctive clear, no discharge, lids normal Ears: TMs intact and clear, ear canals clear, no drainage, grossly hearing normal. Nose: Nares patent, no discharge, no inflammation, no sinus tenderness. Mouth: Oropharynx without lesions or masses, good dentition, MMM. White ulcerated lesion to the left upper inner lip, tender to palpation Neck: Supple, trachea midline, no enlargement of anterior or posterior cervical nodes, no thyroid masses or goiter palpable. Cardio: Regular rate and rhythm, s1 and s2 normal, no murmur appreciated. Resp: Clear to auscultation bilaterally anteriorly and posteriorly, no rhonchi, rales, wheezing or rubs Musculo
[2021-12-16 09:08] VITALS: BP 116/86; PULSE 61; RESP 16; TEMP 36.4; O2SAT 100
== END 2021-12-16 10:03 | disposition home or self-care (01) ==
PROVIDERS: Emergency Provider Nurse Practitioner Family; PCP Family Medicine
DX: M19.012 Primary osteoarthritis, left shoulder (principal); K12.0 Recurrent oral aphthae; Z87.891 Personal history of nicotine dependence; K21.9 Gastro-esophageal reflux disease without esophagitis; Z86.73 Personal history of transient ischemic attack (TIA), and cerebral infarction without residual deficits
CPT/HCPCS: 73030; 99213; G0463

== ENCOUNTER 2022-01-05 15:30 | Outpatient (CLI) | payer OTHER, SELFPAY ==
--- NOTE | ~2022-01-05 | US_ITS ---
EXAMINATION: US breast RT limited HISTORY: Palpable lumps at the 12:00 and 4:00 locations of the right breast TECHNIQUE: Limited right breast ultrasound is performed. FINDINGS: There is no evidence of focal abnormal cystic or solid mass in the vicinity of the reported palpable abnormalities concern. IMPRESSION: No specific sonographic correlate is identified for the reported palpable abnormalities of concern. F urther evaluation at this time should be based on clinical assessment. Continued follow-up physical e xamination is recommended. BI-RADS Category 1: Negative Reviewed, dictated and finalized at location A. [facility] IMPRESSION: No specific sonographic correlate is identified for the reported palpable abnor malities of concern. Further evaluation at this time should be based on clinica l assessment. Continued follow-up physical examination is recommended. BI-RADS Category 1: Negative
== END 2022-01-05 15:31 | disposition home or self-care (01) ==
LOC: ANHIMG 15:31
PROVIDERS: PCP Family Medicine; Visit Provider Nurse Practitioner Family
DX: N63.0 Unspecified lump in unspecified breast (principal)
CPT/HCPCS: 76642

== ENCOUNTER 2022-01-11 09:01 | Emergency (ER) | payer OTHER, SELFPAY ==
[2022-01-11 09:12] VITALS: BP 114/87; PULSE 70; RESP 16; TEMP 37.1; O2SAT 99
--- NOTE | 2022-01-11 09:18 | ED.GENADULT ---
HPI - General Adult General Chief complaint: Abdominal Pain Stated complaint: pain on lt side Source: patient Mode of arrival: ambulatory Limitations: no limitations History of Present Illness HPI narrative: Patient presents for evaluation of left flank pain for last few days. He states he has a constant dull aching sensation in the area, rated 5/10 in severity. He does get intermittent periods of sharp pain in the area that he rates 8 out 10 severity. He cannot identify any aggravating or alleviating factors. He tried aspirin but cannot say whether that made any difference in his pain level. No fever, chills, nausea, vomiting, diarrhea, dysuria, hematuria, urinary urgency, or decreased force of urinary stream. He has experienced some urinary frequency but it sounds like this is more chronic in nature. No hx of kidney stones. Related Data Home Medications Medication Instructions Recorded Confirmed acetaminophen 500 mg tablet 500 mg PO Q6H 05/26/21 01/11/22 Allergies Allergy/AdvReac Type Severity Reaction Status Date / Time No Known Allergies Allergy Verified 01/11/22 09:09 Review of Systems Review of Systems: CONSTITUTIONAL: Denies fever, chills, or sweats. EYES: Denies visual changes, redness, or discharge. ENT: Denies rhinorrhea, congestion, sore throat, or otalgia. CARDIOVASCULAR: Denies chest pain, palpitations, or edema. RESPIRATORY: Denies cough or dyspnea. GASTROINTESTINAL: Denies abdominal pain, nausea, vomiting, or diarrhea. GENITOURINARY: Denies dysuria or hematuria. SKIN: Denies rash or itching. MUSCULOSKELETAL: Reports left flank pain. Denies joint pain, or myalgia. NEUROLOGIC: Denies headache, numbness, dizziness, or weakness. PSYCHIATRIC: Denies anxiety or depression. [facility] Past Medical History Medical History Anxiety BMI 23.0-23.9, adult Burn of abdominal wall Chronic pain Coccygeal pain, acute Constipation Degenerative, intervertebral disc, cervical Depression Dizziness GERD (gastroesophageal reflux disease) Shortness of Breath Sleep disturbance TIA (transient ischemic attack) Surgical History Surgical History No history of previous surgery Family History Family History Mother Ovarian ca Father COPD (chronic obstructive pulmonary disease) Sibling No problems noted. Social History Social History Social History: Patient states he smoked briefly as a teenager. Smoking status: Former smoker Tobacco type: cigarettes Second hand tobacco smoke exposure: Yes Additional smoking assessment comments: pt states that he only smoked from time to time and quit many years ago Alcohol intake: current Substance use: never Substance use type: does not use Lack of Transportation: No Lack of Food: Never True Current Housing: I Have Housing Concerned About Future Housing: No Difficulty Paying Gas/Electric Bills: No Difficulty Paying for Meds: No Currently Unemployed: No Education: High School Diploma/GED Difficulty w/ Childcare or Family Care: No Additional living arrangements comments: Brother Additional occupation/education comments: 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 Gender identity (if verbalized by the patient): Male Agree to blood products: Yes Exam Narrative: GENERAL: Well-appearing, well-nourished, and in no acute distress. HEAD: Normocephalic, atraumatic. EYES: PERRLA and EOMI. ENT: Nares clear, no rhinorrhea or epistaxis. Mucous membranes moist. Oropharynx without tonsillar hypertrophy exudate or other lesions. Bilateral TMs pearly nascimento nonbulging NECK: Supple. No adenopathy or masses. No carotid brui
--- NOTE | 2022-01-11 10:43 | PC.NURSE ---
0933 urine specimen collected. Patient resting in room.
== END 2022-01-11 10:12 | disposition home or self-care (01) ==
PROVIDERS: Emergency Provider Nurse Practitioner; PCP Family Medicine
DX: R10.9 Unspecified abdominal pain (principal); Z87.891 Personal history of nicotine dependence
CPT/HCPCS: 81003; 99213; G0463

== ENCOUNTER 2022-01-13 12:41 | Outpatient (CLI) | payer OTHER, SELFPAY ==
[2022-01-13 18:57] LABS: Basophils Percent Auto 0.6 % (0.2-1.2); Eosinophils Absolute Auto 0.2 K/mm3 (0-0.3); Eosinophils Percent Auto 2.5 % (0-4.4); Hematocrit 49.8 % (42.0-52.0); Hemoglobin 16.6 g/dL (14.0-18.0); Immature Granulocyte Absolute 0.02 K/mm3 (0.00-0.031); Immature Granulocyte Percent A 0.3 % (0-0.5); Lymphocytes Absolute Auto 1.63 K/mm3 (0.9-3.2); Lymphocytes Percent Auto 25.2 % (18.3-44.2); Mean Corpuscular HGB Conc 33.3 g/dl (32-36); Mean Corpuscular Hemoglobin 29.7 pg (26-34); Mean Corpuscular Volume 89.2 fl (80-100); Mean Platelet Volume 9.3 fl (7.4-10.4); Monocytes Absolute Auto 0.5 K/mm3 (0.1-0.6); Monocytes Percent Auto 7.4 % (2.6-8.5); Neutrophils Absolute Auto 4.1 K/mm3 (1.3-6.7); Platelet Count Result 226 k/mm3 (150-375); Red Blood Count 5.58 M/mm3 (4.6-6.20); Red Cell Distribution Width 12.3 % (11.5-14.5); White Blood Count 6.5 K/mm3 (4.5-10.0)
[2022-01-13 19:06] LABS: Alanine Aminotransferase 45 U/L (6-50); Albumin Level 4.7 g/dL (3.5-5.1); Alkaline Phosphatase 68 U/L (38-126); Anion Gap 7 mmol/L (8-16); Aspartate Amino Transferase 44 U/L (17-59); Bilirubin,Total 2.3 mg/dL (0.2-1.3); Blood Urea Nitrogen 15 mg/dL (9-20); Calcium 8.6 mg/dL (8.4-10.2); Carbon Dioxide 32 mmol/L (22-30); Chloride 99 mmol/L (98-107); Estimated Glomerular Filt Rate > 60; Glucose 63 mg/dL (65-110); Potassium 3.9 mmol/L (3.4-5.0); Sodium 138 mmol/L (137-145)
[2022-01-16 21:23] LABS: PSA, Total 0.7 ng/mL (<=4.0)
== END 2022-01-13 12:42 | disposition home or self-care (01) ==
LOC: ANHGOSHLAB 12:43
PROVIDERS: PCP Family Medicine; Visit Provider Nurse Practitioner Family
DX: Z51.81 Encounter for therapeutic drug level monitoring (principal); Z79.899 Other long term (current) drug therapy; N13.9 Obstructive and reflux uropathy, unspecified
CPT/HCPCS: 36415; 80053; 84153; 84154; 85025

== ENCOUNTER 2022-01-28 13:52 | Emergency (ER) | payer OTHER, SELFPAY ==
--- NOTE | 2022-01-28 15:09 | PC.NURSE ---
pt has been called multiple times for EKG and other testing. pt nojt in lobby at this time
--- NOTE | 2022-01-28 15:56 | PC.NURSE ---
pt called again for lab, EKG and radiology and not in waiting room
== END 2022-01-28 15:09 | disposition left against medical advice (07) ==
PROVIDERS: PCP Family Medicine
DX: R07.9 Chest pain, unspecified (principal)
CPT/HCPCS: 99199

== ENCOUNTER 2022-05-10 14:19 | Emergency (ER) | payer OTHER, SELFPAY ==
--- NOTE | 2022-05-10 14:27 | ED.URI ---
HPI - URI/Sore Throat General Chief Complaint: Upper Respiratory Infection Stated Complaint: congestion,sinus pressure, lt ear pain Time Seen by Provider: 05/10/22 14:35 Source: patient Mode of arrival: ambulatory Limitations: no limitations History of Present Illness HPI Narrative: Jim is a 51-year-old male patient presenting to the clinic today with complaints of cough, congestion, sinus pressure, left ear pain x3 weeks. He reports he is having a lot of sinus pressure to the left maxilla and frontal sinuses. He reports that the nasal drainage is green and is having a lot of postnasal drip MD elicited complaint: cough, nasal congestion and sinus pain Related Data Allergies Allergy/AdvReac Type Severity Reaction Status Date / Time No Known Allergies Allergy Verified 05/10/22 14:37 Review of Systems Review of Systems: Pertinent positives per HPI. Patient denies any fever, chills, rash, headache, visual changes, dizziness, cough, shortness of breath, chest pain, palpitations, nausea, vomiting, diarrhea, constipation, abdominal pain, or any urinary issues. [facility] Past Medical History Medical History Anxiety BMI 23.0-23.9, adult Burn of abdominal wall Chronic pain Coccygeal pain, acute Constipation Degenerative, intervertebral disc, cervical Depression Dizziness GERD (gastroesophageal reflux disease) Shortness of Breath Sleep disturbance TIA (transient ischemic attack) Surgical History Surgical History No history of previous surgery Family History Family History Mother Ovarian ca Father COPD (chronic obstructive pulmonary disease) Sibling No problems noted. Social History Social History Social History: Patient states he smoked briefly as a teenager. Smoking status: Former smoker Tobacco type: cigarettes Second hand tobacco smoke exposure: Yes Additional smoking assessment comments: pt states that he only smoked from time to time and quit many years ago Alcohol intake: current Substance use: never Substance use type: does not use Lack of Transportation: No Lack of Food: Never True Current Housing: I Have Housing Concerned About Future Housing: No Difficulty Paying Gas/Electric Bills: No Difficulty Paying for Meds: No Currently Unemployed: No Education: High School Diploma/GED Difficulty w/ Childcare or Family Care: No Living arrangements: with family Additional living arrangements comments: Brother Occupation/Education: occupation Additional occupation/education comments: 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 Gender identity (if verbalized by the patient): Male Agree to blood products: Yes Comments At the time of my signature, I reviewed and agree with the nursing past medical, surgical, social, and family history. There is no relevant family history pertinent to the patient complaint. Exam Narrative: General: Well-developed, well nourished, in no apparent distress Head: Normocephalic, atraumatic Eyes: Pupils equally round and reactive to light bilaterally, EOM intact, sclera and conjunctive clear, no discharge, lids normal Ears: TMs intact and dull, ear canals clear, no drainage, grossly hearing normal. Nose: Nares patent, green nasal discharge, moderate inflammation, left maxillary, ethmoid, and frontal sinus tenderness. Mouth: Oral pharynx without lesions or masses, good dentition, MMM. Postnasal drip Neck: Supple, trachea midline, no enlargement of anterior or posterior cervical nodes, no thyroid masses or goiter palpable. Cardio: Regular rate and rhythm, s1 and s2 normal, no murmur appreciated. Resp: Clear to
[2022-05-10 14:33] VITALS: BP 110/72; PULSE 93; RESP 16; TEMP 36.8; O2SAT 98
== END 2022-05-10 14:54 | disposition home or self-care (01) ==
PROVIDERS: Emergency Provider Nurse Practitioner Family; PCP Family Medicine
DX: J01.90 Acute sinusitis, unspecified (principal); Z87.891 Personal history of nicotine dependence; M47.812 Spondylosis without myelopathy or radiculopathy, cervical region; K21.9 Gastro-esophageal reflux disease without esophagitis; Z86.73 Personal history of transient ischemic attack (TIA), and cerebral infarction without residual deficits
CPT/HCPCS: 99213; G0463

== ENCOUNTER 2022-05-27 15:16 | Emergency (ER) | payer OTHER, SELFPAY ==
[2022-05-27 15:22] VITALS: BP 97/76; PULSE 79; RESP 16; TEMP 36.3; O2SAT 98
--- NOTE | 2022-05-27 15:28 | ED.URI ---
HPI - URI/Sore Throat General Chief Complaint: Upper Respiratory Infection Stated Complaint: FACIAL PAIN Time Seen by Provider: 05/27/22 15:35 Source: patient and RN notes reviewed Mode of arrival: ambulatory Limitations: no limitations History of Present Illness HPI Narrative: 51-year-old male presents with ongoing sinus pain despite antibiotics for sinus infection. Reports he was seen 17 days ago and was given Augmentin and a steroid. He reports he did not take the steroid because ?the pharmacist told needed half to 1 ?. He did take the Augmentin, reports he was feeling better, but he was late on a dose by 12 hours, reports his symptoms came back after that. He otherwise completed the antibiotic. Reports he has also been using sinus rinses. He reports sinus pain, facial pain. Denies fever, aches, chills, sweats. MD elicited complaint: sinus pain Related Data Allergies Allergy/AdvReac Type Severity Reaction Status Date / Time No Known Allergies Allergy Verified 05/27/22 15:29 Review of Systems Review of Systems: CONSTITUTIONAL: Denies malaise, chills, sweats, or fever. EYES: Denies visual changes, redness, or discharge. ENT: Reports rhinorrhea, congestion, sinus pain. Denies otalgia and sore throat. CARDIOVASCULAR: Denies chest pain, palpitations, or edema. RESPIRATORY: Denies cough. Denies dyspnea. GASTROINTESTINAL: Denies abdominal pain, nausea, vomiting, diarrhea SKIN: Denies rash or itching. MUSCULOSKELETAL: Denies myalgia. NEUROLOGIC: Denies headache. All systems reviewed & are unremarkable except as noted in HPI and below PMFSH Past Medical History Medical History Anxiety BMI 23.0-23.9, adult Burn of abdominal wall Chronic pain Coccygeal pain, acute Constipation Degenerative, intervertebral disc, cervical Depression Dizziness GERD (gastroesophageal reflux disease) Shortness of Breath Sleep disturbance TIA (transient ischemic attack) Surgical History Surgical History No history of previous surgery Family History Family History Mother Ovarian ca Father COPD (chronic obstructive pulmonary disease) Sibling No problems noted. Social History Social History Social History: Patient states he smoked briefly as a teenager. Smoking status: Former smoker Tobacco type: cigarettes Second hand tobacco smoke exposure: Yes Additional smoking assessment comments: pt states that he only smoked from time to time and quit many years ago Alcohol intake: current Substance use: never Substance use type: does not use Lack of Transportation: No Lack of Food: Never True Current Housing: I Have Housing Concerned About Future Housing: No Difficulty Paying Gas/Electric Bills: No Difficulty Paying for Meds: No Currently Unemployed: No Education: High School Diploma/GED Difficulty w/ Childcare or Family Care: No Living arrangements: with family Additional living arrangements comments: Brother Occupation/Education: occupation Additional occupation/education comments: 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 Gender identity (if verbalized by the patient): Male Agree to blood products: Yes Comments At time of signature, agree with nursing past medical, surgical, social and family history. There is no relevant family history pertinent to the presenting complaint Exam Narrative: GENERAL: Well-appearing, well-nourished, and in no acute distress. HEAD: Normocephalic EYES: PERRLA, conjunctivae clear ENT: Nares clear, turbinates erythematous. Mucous membranes moist. TM pearly nascimento with sharp light reflex bilaterally; no tragal tenderness. Oropharynx no
== END 2022-05-27 15:50 | disposition home or self-care (01) ==
PROVIDERS: Emergency Provider Nurse Practitioner; PCP Family Medicine
DX: J32.9 Chronic sinusitis, unspecified (principal); Z87.891 Personal history of nicotine dependence; F41.9 Anxiety disorder, unspecified; F32.A Depression, unspecified; K21.9 Gastro-esophageal reflux disease without esophagitis; Z86.73 Personal history of transient ischemic attack (TIA), and cerebral infarction without residual deficits
CPT/HCPCS: 99213; G0463

== ENCOUNTER 2022-06-08 02:13 | Emergency (ER) | payer OTHER, SELFPAY ==
[2022-06-08] VITALS (14 sets, daily range): BP systolic 108–121; BP diastolic 78–87; PULSE 56–80; RESP 14–20; TEMP 36.6; O2SAT 95–100
--- NOTE | ~2022-06-08 | XR_ITS ---
Clinical Indication: Chest pain PA and lateral views of the chest: Comparison: 07/28/2021 Findings: The lungs are clear, without evidence of focal consolidation or pleural effusion. Suspected COPD. Cardiomediastinal silhouette is within normal limits. Bones and soft tissues are unremarkable. Impression: Suspected COPD. Clear lungs. Reviewed, dictated and finalized at location . Impression: Suspected COPD. Clear lungs.
--- NOTE | 2022-06-08 02:16 | ECG_ITS ---
Measurements Intervals [place] Rate: 74 P: 78 [place]: 188 QRS: 49 QRSD: 110 T: 66 QT: 370 QTc: 411 Interpretive Statements SINUS RHYTHM INCOMPLETE RIGHT BUNDLE BRANCH BLOCK BORDERLINE ECG COMPARED TO ECG 07/28/2021 16:03:59 NO SIGNIFICANT CHANGES Electronically Signed On 06-08-2022 6:41:59 CDT by Дмитрий Goff D.O.
[2022-06-08 02:32] LABS: Basophils Percent Auto 0.4 % (0.2-1.2); Eosinophils Absolute Auto 0.1 K/mm3 (0-0.3); Eosinophils Percent Auto 1.1 % (0-4.4); Hematocrit 49.6 % (42.0-52.0); Hemoglobin 16.7 g/dL (14.0-18.0); Immature Granulocyte Absolute 0.02 K/mm3 (0.00-0.031); Immature Granulocyte Percent A 0.2 % (0-0.5); Lymphocytes Absolute Auto 1.78 K/mm3 (0.9-3.2); Lymphocytes Percent Auto 21.5 % (18.3-44.2); Mean Corpuscular HGB Conc 33.7 g/dl (32-36); Mean Corpuscular Hemoglobin 30.3 pg (26-34); Mean Platelet Volume 9.5 fl (7.4-10.4); Monocytes Absolute Auto 0.5 K/mm3 (0.1-0.6); Monocytes Percent Auto 5.7 % (2.6-8.5); Neutrophils Absolute Auto 5.9 K/mm3 (1.3-6.7); Neutrophils Percent Auto 71.1 % (45.5-73.1); Platelet Count Result 196 k/mm3 (150-375); Red Blood Count 5.51 M/mm3 (4.6-6.20); Red Cell Distribution Width 12.3 % (11.5-14.5); White Blood Count 8.3 K/mm3 (4.5-10.0)
[2022-06-08 02:46] LABS: Alanine Aminotransferase 28 U/L (6-50); Albumin Level 4.7 g/dL (3.5-5.1); Alkaline Phosphatase 72 U/L (38-126); Anion Gap 8 mmol/L (8-16); Aspartate Amino Transferase 26 U/L (17-59); Bilirubin,Total 1.4 mg/dL (0.2-1.3); Blood Urea Nitrogen 13 mg/dL (9-20); Calcium 8.9 mg/dL (8.4-10.2); Carbon Dioxide 31 mmol/L (22-30); Chloride 101 mmol/L (98-107); Estimated CRCL calculation 129 ml/min; Estimated Glomerular Filt Rate > 60; Glucose 93 mg/dL (65-110); Lipase 92 U/L (23-300); Potassium 3.4 mmol/L (3.4-5.0); Sodium 140 mmol/L (137-145)
--- NOTE | 2022-06-08 02:51 | ED.CHESTPAIN ---
HPI - Chest Pain General Chief Complaint: Chest Pain Stated Complaint: chest pain x 2days Time Seen by Provider: 06/08/22 02:27 History of Present Illness HPI narrative: Patient is a 51-year-old male presenting with chest pain. Patient states that 2 days ago he developed pressure in his upper back that then went into his chest. States that this was followed by chills and shaking. States that he took 4 baby aspirin which resolved his symptoms. States that he again tonight developed some pressure in his chest followed by a sensation of coldness. States he took another 4 baby aspirin which improved his symptoms. States that he sometimes will feel lightheaded. He also complains of pain in the left side of his prostate. States he is concerned about his BPH. He denies headache, numbness or weakness, abdominal pain, nausea or vomiting, diarrhea, dysuria, hematuria, leg swelling. Related Data Allergies Allergy/AdvReac Type Severity Reaction Status Date / Time No Known Allergies Allergy Verified 05/27/22 15:29 Review of Systems Review of Systems: All systems reviewed & are unremarkable except as noted in HPI and below PMFSH Past Medical History Medical History Anxiety BMI 23.0-23.9, adult Burn of abdominal wall Chronic pain Coccygeal pain, acute Constipation Degenerative, intervertebral disc, cervical Depression Dizziness GERD (gastroesophageal reflux disease) Shortness of Breath Sleep disturbance TIA (transient ischemic attack) Surgical History Surgical History No history of previous surgery Family History Family History Mother Ovarian ca Father COPD (chronic obstructive pulmonary disease) Sibling No problems noted. Social History Social History Social History: Patient states he smoked briefly as a teenager. Smoking status: Former smoker Tobacco type: cigarettes Second hand tobacco smoke exposure: Yes Additional smoking assessment comments: pt states that he only smoked from time to time and quit many years ago Alcohol intake: current Substance use: never Substance use type: does not use Lack of Transportation: No Lack of Food: Never True Current Housing: I Have Housing Concerned About Future Housing: No Difficulty Paying Gas/Electric Bills: No Difficulty Paying for Meds: No Currently Unemployed: No Education: High School Diploma/GED Difficulty w/ Childcare or Family Care: No Living arrangements: with family Additional living arrangements comments: Brother Occupation/Education: occupation Additional occupation/education comments: 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 Gender identity (if verbalized by the patient): Male Agree to blood products: Yes Exam Narrative: GENERAL: Well-appearing, well-nourished, and in no acute distress. HEAD: Normocephalic, atraumatic. EYES: PERRLA and EOMI. ENT: Nares clear, no rhinorrhea or epistaxis. Mucous membranes moist. NECK: Supple. CHEST: Clear to auscultation. No respiratory distress. HEART: Bradycardic, regular rhythm ABDOMEN: Soft, nontender, nondistended EXTREMITIES: Normal range of motion. No edema. SKIN: Warm, dry, no rash. NEURO: No focal deficits. Alert and oriented x3. PSYCH: Normal mood and affect. Course Vital Signs Vital signs: Vital Signs Temperature 98 F 06/08/22 02:17 Pulse Rate 80 06/08/22 02:17 Respiratory Rate 18 06/08/22 02:17 Blood Pressure 121/87 06/08/22 02:17 Pulse Oximetry 99 06/08/22 02:17 Temperature 98 F 06/08/22 07:01 Pulse Rate 77 06/08/22 07:01 Respiratory Rate 18 06/08/22 07:01 Blood Pressure 118/79 06/08/22 07:01 Pulse Oximet
[2022-06-08] MEDS: SODIUM CHLORIDE 0.9% IV 1,000 ML 999 ML IV CONT (02:56)
[2022-06-08 02:57] LABS: Troponin I < 0.012 ng/mL (0.000-0.034)
[2022-06-08 03:02] LABS: INR 0.9; Prothrombin Time 12.9 Seconds (11.1-14.7)
[2022-06-08 03:03] LABS: Partial Thromboplastin Time 28.6 SECONDS (22.3-36.8)
[2022-06-08 03:40] LABS: Influenza A QL RT-PCR Negative (Negative); Influenza B QL RT-PCR Negative (Negative); SARS-CoV-2 RNA PCR Negative (Negative)
[2022-06-08 05:42] LABS: Troponin I < 0.012 ng/mL (0.000-0.034)
[2022-06-08 06:03] LABS: Appearance Urine Clear (Clear); Bilirubin Urine Negative (Negative); Blood Urine Negative (Negative); Color Urine Yellow (Yellow); Glucose Urine UA Negative (Negative); Ketones Urine Negative (Negative); Leukocyte Esterase Ur Negative LEU/UL (Negative); Nitrate Urine Negative (Negative); Protein Urine Negative (Negative); Specific Grav Ur 1.004 (1.001-1.035); Urobilinogen Urine 0.2 mg/dL (<2.0)
[2022-06-08 06:06] LABS: Add Urine Microscopic? NO
== END 2022-06-08 07:02 | disposition home or self-care (01) ==
PROVIDERS: Emergency Provider Emergency Medicine; PCP Family Medicine
DX: R07.89 Other chest pain (principal); R68.83 Chills (without fever); Z20.822 Contact with and (suspected) exposure to COVID-19; K21.9 Gastro-esophageal reflux disease without esophagitis; Z86.73 Personal history of transient ischemic attack (TIA), and cerebral infarction without residual deficits; Z87.891 Personal history of nicotine dependence; I45.10 Unspecified right bundle-branch block; R91.8 Other nonspecific abnormal finding of lung field
CPT/HCPCS: 36415; 71046; 80053; 81003; 83690; 84484; 85025; 85610; 85730; 87636; 93005; 96360; 96361; 99284; J7030

== ENCOUNTER 2022-08-05 12:11 | Emergency (ER) | payer OTHER, SELFPAY ==
[2022-08-05] VITALS (14 sets, daily range): BP systolic 95–128; BP diastolic 72–85; PULSE 53–67; RESP 13–17; TEMP 36.6; O2SAT 95–100
--- NOTE | ~2022-08-05 | XR_ITS ---
EXAMINATION: XR chest 1V portable INDICATION: Chest pain and dizziness TECHNIQUE: Portable AP chest at 1313 hours COMPARISON: 06/08/2022 FINDINGS: The lungs are free of acute opacities. There are lucencies of the upper lung zones, likely emphysema. No pleural effusion or pneumothorax. The cardiomediastinal silhouette is normal. IMPRESSION: 1. No acute cardiopulmonary abnormality. Reviewed, dictated and finalized at location []
--- NOTE | ~2022-08-05 | CT_ITS ---
EXAMINATION: CTA chest abdomen pelvis DATE: 08/05/2022 14:58 INDICATION: Chest pain radiating to the back and left side of the neck TECHNIQUE: Computed tomographic angiography (CTA) of the chest, abdomen and pelvis was performed with 100 cc of Omnipaque-350 intravenous contrast. Additional 3D reconstructions utilizing rotating maxim um intensity projection (MIP) were performed. Automated exposure control and iterative reconstruction technique were employed. The dose-length product was 806.64 mGy-cm. COMPARISON: Chest CT dated 01/30/2021 FINDINGS: Chest: Groundglass opacities and linear bandlike opacities with architectural distortion in the bilateral lo wer lobes, minimally in the inferior lingula and right middle lobe at the sites of prior COVID pneumo raeann most consistent with residual chronic atelectasis/scarring. Heart size is normal. No pericardial or pleural effusion. Thoracic aorta is normal in caliber with no dissection. Although not performed a s a dedicated pulmonary embolism protocol there is good contrast opacification of the pulmonary arter ies demonstrating no pulmonary embolism. No pathologically enlarged thoracic lymphadenopathy. Mild bi lateral gynecomastia. Mild thoracic spondylosis. Abdomen and pelvis: Large gallstone in the central aspect of the normal-appearing gallbladder with no gallbladder dilatio n, wall thickening or pericholecystic inflammatory to suggest acute cholecystitis. Liver, pancreas, s pleen, bilateral adrenal glands and kidneys are normal. Bowels including the appendix are normal. Nathan dder is unremarkable. Abdominal aorta and large vessels arising from the aorta are normal in caliber with no evident atherosclerotic plaque, aneurysm or dissection. No free intraperitoneal gas or fluid. No pathologically enlarged abdominal or pelvic lymphadenopathy. Polyarticular osteoarthritis, mild t o moderate multilevel lumbar facet joints and mild at the bilateral hip and sacroiliac joints. IMPRESSION: 1. Groundglass and linear bandlike opacities in both lungs predominantly in the lower lobes correspon ding in location to earlier COVID pneumonia and this most likely related to residual chronic atelecta sis/scarring. Mild pulmonary edema or pneumonia considered unlikely. 2. No other acute cardiopulmonary disease or acute intra-abdominal/pelvic process. 3. Cholelithiasis. Reviewed, dictated and finalized at location A. IMPRESSION: 1. Groundglass and linear bandlike opacities in both lungs predominantly in the lower lobes corresponding in location to earlier COVID pneumonia and this most likely related to residual chronic atelectasis/scarring. Mild pulmonary edema or pneumonia considered unlikely. 2. No other acute cardiopulmonary disease or acute intra-abdominal/pelvic proce ss. 3. Cholelithiasis.
--- NOTE | 2022-08-05 12:16 | ECG_ITS ---
Measurements Intervals [place] Rate: 64 P: 48 [place]: 173 QRS: 21 QRSD: 112 T: 33 QT: 410 QTc: 424 Interpretive Statements SINUS RHYTHM MODERATE INTRAVENTRICULAR CONDUCTION DELAY [110+ ms QRS DURATION] COMPARED TO ECG 06/08/2022 02:21:12 NO SIGNIFICANT CHANGES Electronically Signed On 08-05-2022 13:49:53 CDT by Екатерина Lamar M.D.
[2022-08-05 12:20] LABS: Glucose Point of Care 116 mg/dl (65-105)
--- NOTE | 2022-08-05 12:51 | ED.GENADULT ---
HPI - General Adult General Chief complaint: Chest Pain Stated complaint: near syncope Time Seen by Provider: 08/05/22 12:33 Source: patient, RN notes reviewed and old records reviewed Mode of arrival: ambulatory Limitations: no limitations History of Present Illness HPI narrative: This is a 51 year old male with history of anxiety, chronic pain, asthma who presents for evaluation of lightheadedness. He states that he was driving in his car when he felt like he was going to pass out. He also reports left chest discomfort and left neck pain. He states his chest discomfort is mild. He also reports feeling generalized weakness. He feels lightheaded with deep breathing. He denies cough, fever, nausea, vomiting. He does reports intermittent lower abdominal pain since last night. He is concerned he is a diabetic and he wants to be tested for covid. He tooks 2 aspirin 81 mg and he ate candy bar at onset of his dizziness. He states he feels better. Related Data Home Medications Medication Instructions Recorded Confirmed azelastine 0.05 % eye drops 1 drp EACH EYE 08/04/22 Allergies Allergy/AdvReac Type Severity Reaction Status Date / Time No Known Allergies Allergy Verified 08/04/22 10:20 Review of Systems Review of Systems: All systems reviewed & are unremarkable except as noted in HPI and below Constitutional: Constitutional: Reports weakness Cardiovascular: Cardiovascular: Reports chest pain, Denies syncope, Denies rapid heart rate, Denies irregular heart rhythm, Denies leg edema, Reports radiating jaw, neck or arm pain and Reports dyspnea Respiratory: Respiratory: Denies chest congestion, Denies hemoptysis, Denies excessive phlegm production and Denies dyspnea Gastrointestinal: Gastrointestinal: Reports abdominal pain, Denies hematochezia, Reports diarrhea and Denies vomiting Genitourinary: Genitourinary: Denies hematuria, Denies dysuria, Denies penile discharge and Denies testicular pain Musculoskeletal: Musculoskeletal: Denies joint swelling, Denies loss of height and Denies muscle weakness Neurologic: Reports dizziness, Denies syncope, Denies focal weakness and Reports weakness PMFSH Past Medical History Medical History Anxiety BMI 23.0-23.9, adult Burn of abdominal wall Chronic pain Coccygeal pain, acute Constipation Degenerative, intervertebral disc, cervical Depression Dizziness GERD (gastroesophageal reflux disease) Shortness of Breath Sleep disturbance TIA (transient ischemic attack) Surgical History Surgical History No history of previous surgery Family History Family History (Updated 08/04/22 @ 10:22 by Maryjo Lynch [facility]) Mother Ovarian ca Father COPD (chronic obstructive pulmonary disease) Sibling No problems noted. Social History Social History Social History: Patient states he smoked briefly as a teenager. Smoking status: Former smoker Tobacco type: cigarettes Second hand tobacco smoke exposure: Yes Additional smoking assessment comments: pt states that he only smoked from time to time and quit many years ago Alcohol intake: current Substance use: never Substance use type: does not use Lack of Transportation: No Lack of Food: Never True Current Housing: I Have Housing Concerned About Future Housing: No Difficulty Paying Gas/Electric Bills: No Difficulty Paying for Meds: No Currently Unemployed: No Education: High School Diploma/GED Difficulty w/ Childcare or Family Care: No Living arrangements: with family Additional living arrangements comments: Brother Occupation/Education: occupation Additional occupation/education comments: 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 Gender identit
[2022-08-05 13:02] LABS: Basophils Percent Auto 0.6 % (0.2-1.2); Eosinophils Absolute Auto 0.2 K/mm3 (0-0.3); Eosinophils Percent Auto 2.9 % (0-4.4); Hematocrit 48.8 % (42.0-52.0); Hemoglobin 16.2 g/dL (14.0-18.0); Immature Granulocyte Absolute 0.01 K/mm3 (0.00-0.031); Immature Granulocyte Percent A 0.2 % (0-0.5); Lymphocytes Absolute Auto 1.88 K/mm3 (0.9-3.2); Lymphocytes Percent Auto 35.7 % (18.3-44.2); Mean Corpuscular HGB Conc 33.2 g/dl (32-36); Mean Corpuscular Hemoglobin 29.9 pg (26-34); Mean Corpuscular Volume 90.2 fl (80-100); Mean Platelet Volume 9.7 fl (7.4-10.4); Monocytes Absolute Auto 0.4 K/mm3 (0.1-0.6); Monocytes Percent Auto 7.8 % (2.6-8.5); Neutrophils Absolute Auto 2.8 K/mm3 (1.3-6.7); Neutrophils Percent Auto 52.8 % (45.5-73.1); Platelet Count Result 191 k/mm3 (150-375); Red Blood Count 5.41 M/mm3 (4.6-6.20); Red Cell Distribution Width 12.3 % (11.5-14.5); White Blood Count 5.3 K/mm3 (4.5-10.0)
[2022-08-05 13:15] LABS: Alanine Aminotransferase 19 U/L (6-50); Albumin Level 4.4 g/dL (3.5-5.1); Alkaline Phosphatase 50 U/L (38-126); Anion Gap 8 mmol/L (8-16); Aspartate Amino Transferase 25 U/L (17-59); Blood Urea Nitrogen 15 mg/dL (9-20); Calcium 8.6 mg/dL (8.4-10.2); Carbon Dioxide 33 mmol/L (22-30); Chloride 98 mmol/L (98-107); Estimated Glomerular Filt Rate > 60; Glucose 98 mg/dL (65-110); Lipase 112 U/L (23-300); Potassium 3.8 mmol/L (3.4-5.0); Sodium 139 mmol/L (137-145)
[2022-08-05] MEDS: SODIUM CHLORIDE 0.9% IV 1,000 ML 999 ML IV CONT (13:15)
[2022-08-05 13:24] LABS: Troponin I < 0.012 ng/mL (0.000-0.034)
[2022-08-05 13:25] LABS: Partial Thromboplastin Time 29.7 SECONDS (22.3-36.8)
[2022-08-05 13:26] LABS: Prothrombin Time 13.8 Seconds (11.1-14.7)
[2022-08-05 13:38] LABS: D Dimer < 0.27 ug/mL (<0.48); Influenza A QL RT-PCR Negative (Negative); Influenza B QL RT-PCR Negative (Negative); SARS-CoV-2 RNA PCR Negative (Negative)
[2022-08-05 15:03] LABS: Appearance Urine Clear (Clear); Bilirubin Urine Negative (Negative); Blood Urine Negative (Negative); Color Urine Yellow (Yellow); Glucose Urine UA Negative (Negative); Ketones Urine Negative (Negative); Leukocyte Esterase Ur Negative LEU/UL (Negative); Nitrate Urine Negative (Negative); Protein Urine Negative (Negative); Specific Grav Ur 1.009 (1.001-1.035); Urobilinogen Urine 0.2 mg/dL (<2.0)
[2022-08-05 15:06] LABS: Add Urine Microscopic? NO
[2022-08-05 16:12] LABS: Troponin I < 0.012 ng/mL (0.000-0.034)
== END 2022-08-05 16:33 | disposition home or self-care (01) ==
PROVIDERS: Emergency Provider General Practice; PCP Family Medicine
DX: R55 Syncope and collapse (principal); K80.20 Calculus of gallbladder without cholecystitis without obstruction; R07.9 Chest pain, unspecified; Z20.822 Contact with and (suspected) exposure to COVID-19; M50.30 Other cervical disc degeneration, unspecified cervical region; K21.9 Gastro-esophageal reflux disease without esophagitis; G47.9 Sleep disorder, unspecified; Z86.73 Personal history of transient ischemic attack (TIA), and cerebral infarction without residual deficits; Z87.891 Personal history of nicotine dependence; I45.9 Conduction disorder, unspecified
CPT/HCPCS: 36415; 71045; 71275; 74174; 80053; 81003; 82948; 83690; 84484; 85025; 85380; 85610; 85730; 87636; 93005; 96360; 99284; J7030; Q9967

== ENCOUNTER 2022-09-27 14:12 | Emergency (ER) | payer OTHER, SELFPAY ==
[2022-09-27 14:23] VITALS: BP 104/72; PULSE 96; RESP 16; TEMP 37; O2SAT 98
--- NOTE | 2022-09-27 14:31 | ED.GENADULT ---
HPI - General Adult General Chief complaint: Skin/Abscess/Foreign Body Stated complaint: Bite on shoulder Source: patient Mode of arrival: ambulatory Limitations: no limitations History of Present Illness HPI narrative: Patient presents for evaluation of a lesion to the posterior aspect of his neck for the last 2 weeks. He initially thought he had an ingrown hair. He began picking at the lesion and now reports swelling and redness. Denies any pain or pruritus. No fever, chills, nausea, vomiting, purulence from the affected area. He is not diabetic. Related Data Home Medications Medication Instructions Recorded Confirmed azelastine 0.05 % eye drops 1 drp EACH EYE 08/04/22 Allergies Allergy/AdvReac Type Severity Reaction Status Date / Time No Known Allergies Allergy Verified 08/04/22 10:20 Review of Systems Review of Systems: CONSTITUTIONAL: Denies fever, chills, or sweats. EYES: Denies visual changes, redness, or discharge. ENT: Denies rhinorrhea, congestion, sore throat, or otalgia. CARDIOVASCULAR: Denies chest pain, palpitations, or edema. RESPIRATORY: Denies cough or dyspnea. GASTROINTESTINAL: Denies abdominal pain, nausea, vomiting, or diarrhea. GENITOURINARY: Denies dysuria or hematuria. SKIN: Reports skin lesion to the posterior neck MUSCULOSKELETAL: Denies back pain, joint pain, or myalgia. NEUROLOGIC: Denies headache, numbness, dizziness, or weakness. PSYCHIATRIC: Denies anxiety or depression. [facility] Past Medical History Medical History Anxiety BMI 23.0-23.9, adult Burn of abdominal wall Chronic pain Coccygeal pain, acute Constipation Degenerative, intervertebral disc, cervical Depression Dizziness GERD (gastroesophageal reflux disease) Shortness of Breath Sleep disturbance TIA (transient ischemic attack) Surgical History Surgical History No history of previous surgery Family History Family History Mother Ovarian ca Father COPD (chronic obstructive pulmonary disease) Sibling No problems noted. Social History Social History Social History: Patient states he smoked briefly as a teenager. Smoking status: Former smoker Tobacco type: cigarettes Second hand tobacco smoke exposure: Yes Additional smoking assessment comments: pt states that he only smoked from time to time and quit many years ago Alcohol intake: current Substance use: never Substance use type: does not use Lack of Transportation: No Lack of Food: Never True Current Housing: I Have Housing Concerned About Future Housing: No Difficulty Paying Gas/Electric Bills: No Difficulty Paying for Meds: No Currently Unemployed: No Education: High School Diploma/GED Difficulty w/ Childcare or Family Care: No Living arrangements: with family Additional living arrangements comments: Brother Occupation/Education: occupation Additional occupation/education comments: 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 Gender identity (if verbalized by the patient): Male Agree to blood products: Yes Exam Narrative: GENERAL: Well-appearing, well-nourished, and in no acute distress. HEAD: Normocephalic, atraumatic. EYES: PERRLA and EOMI. ENT: Nares clear, no rhinorrhea or epistaxis. Mucous membranes moist. Oropharynx without tonsillar hypertrophy exudate or other lesions. Bilateral TMs pearly nascimento nonbulging NECK: Supple. No adenopathy or masses. No carotid bruits or JVD CHEST: Clear to auscultation. No respiratory distress. No wheezes rales or rhonchi HEART: Regular rate and rhythm. No murmur heard. Normal peripheral pulses. ABDOMEN: Soft, nontender, nondistended, nor
== END 2022-09-27 14:29 | disposition home or self-care (01) ==
PROVIDERS: Emergency Provider Nurse Practitioner; PCP Family Medicine
DX: L73.9 Follicular disorder, unspecified (principal); K21.9 Gastro-esophageal reflux disease without esophagitis; Z86.73 Personal history of transient ischemic attack (TIA), and cerebral infarction without residual deficits; M47.812 Spondylosis without myelopathy or radiculopathy, cervical region
CPT/HCPCS: 99213; G0463

== ENCOUNTER 2022-10-13 11:43 | Emergency (ER) | payer OTHER, SELFPAY ==
[2022-10-13 11:56] VITALS: BP 102/83; PULSE 64; RESP 16; TEMP 37; O2SAT 99
--- NOTE | 2022-10-13 12:04 | ED.URI ---
HPI - URI/Sore Throat General Chief Complaint: Upper Respiratory Infection Stated Complaint: Flu symptoms Source: patient and RN notes reviewed History of Present Illness HPI Narrative: 52 yo M presents to urgent care with complaints of congestion, MALDONADO, sore throat when he coughs, cough, chills, and body aches. pt states this has been going on since Wednesday, intermittently. Pt denies any chest pain, fevers, vomiting, diarrhea, or ear pain. Pt has not taken anything for his symptoms. Pt is hoping to be tested for Covid. Related Data Home Medications Medication Instructions Recorded Confirmed No Home Medications 10/13/22 10/13/22 Allergies Allergy/AdvReac Type Severity Reaction Status Date / Time No Known Allergies Allergy Verified 10/13/22 11:56 Review of Systems Review of Systems: Pertinent positives and pertinent negatives per HPI. [facility] Past Medical History Medical History Anxiety BMI 23.0-23.9, adult Burn of abdominal wall Chronic pain Coccygeal pain, acute Constipation Degenerative, intervertebral disc, cervical Depression Dizziness GERD (gastroesophageal reflux disease) Shortness of Breath Sleep disturbance TIA (transient ischemic attack) Surgical History Surgical History No history of previous surgery Family History Family History Mother Ovarian ca Father COPD (chronic obstructive pulmonary disease) Sibling No problems noted. Social History Social History Social History: Patient states he smoked briefly as a teenager. Smoking status: Former smoker Tobacco type: cigarettes Second hand tobacco smoke exposure: Yes Additional smoking assessment comments: pt states that he only smoked from time to time and quit many years ago Alcohol intake: current Substance use: never Substance use type: does not use Lack of Transportation: No Lack of Food: Never True Current Housing: I Have Housing Concerned About Future Housing: No Difficulty Paying Gas/Electric Bills: No Difficulty Paying for Meds: No Currently Unemployed: No Education: High School Diploma/GED Difficulty w/ Childcare or Family Care: No Living arrangements: with family Additional living arrangements comments: Brother Occupation/Education: occupation Additional occupation/education comments: 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 Gender identity (if verbalized by the patient): Male Agree to blood products: Yes Comments At the time of my signature, I reviewed and agree with the nursing past medical, surgical, social, and family history. There is no relevant family history pertinent to the patient complaint. Exam Narrative: GENERAL: This is a well-nourished, well-developed patient, in no apparent distress. HEAD: normocephalic, atraumatic. EYES: Sclera clear/white. Vision is grossly intact. EARS: External ears normal, auditory canals clear and without drainage, TMs normal without perforation. Hearing grossly intact. NOSE: External nose normal with no obvious nasal discharge, nares without redness, no rhinorrhea. THROAT: Mucous membranes moist, posterior pharynx clear. NECK: Neck supple, non-tender without lymphadenopathy, masses or thyromegaly. CARDIOVASCULAR: Regular rate and rhythm without murmurs, gallops, or rubs. RESPIRATORY: Clear to auscultation. Breath sounds equal bilaterally. No wheezes, rales, or rhonchi. GASTROINTESTINAL: Abdomen soft, non-tender, nondistended. Bowel sounds are active. No hepato-splenomegaly, or palpable masses. No guarding. SKIN: warm, intact with no suspicious lesions or rash, good texture and turgor. NEURO: awake, alert, and
== END 2022-10-13 12:23 | disposition home or self-care (01) ==
PROVIDERS: Emergency Provider Nurse Practitioner Family; PCP Family Medicine
DX: U07.1 COVID-19 (principal); Z87.891 Personal history of nicotine dependence; K21.9 Gastro-esophageal reflux disease without esophagitis; Z86.73 Personal history of transient ischemic attack (TIA), and cerebral infarction without residual deficits; M50.30 Other cervical disc degeneration, unspecified cervical region
CPT/HCPCS: 87426; 99213; C9803; G0463

== ENCOUNTER 2022-10-26 09:11 | Emergency (ER) | payer OTHER, SELFPAY ==
--- NOTE | ~2022-10-26 | XR_ITS ---
Clinical Indication: Shortness of breath, cough PA and lateral views of the chest: Comparison: 08/05/2022 Findings: The lungs are clear, without evidence of focal consolidation or pleural effusion. Cardiome diastinal silhouette is within normal limits. Bones and soft tissues are unremarkable. Impression: Normal chest. Reviewed, dictated and finalized at location . Impression: Normal chest.
--- NOTE | 2022-10-26 09:21 | ED.URI ---
HPI - URI/Sore Throat General Chief Complaint: Upper Respiratory Infection Stated Complaint: Chest pain;shortness of breath Time Seen by Provider: 10/26/22 09:21 Source: patient Mode of arrival: ambulatory Limitations: no limitations History of Present Illness HPI Narrative: Patient is a 52-year-old male who presents with coughing fits causing shortness of breath and burning and bronchial tubes. Patient states on Wednesday he inhaled hot vapers at work and since then his cough has worsened. Patient was diagnosed with COVID 10/11 and has not fully recovered from cough from that. Patient concern for the scarring he was told he had in 2020 on an x-ray. Patient also requesting refill of albuterol inhaler. Patient states he has follow-up appointment with raised printer within the month. Denies any fever, chills, congestion, ear pain,, nausea, vomiting, diarrhea. Related Data Allergies Allergy/AdvReac Type Severity Reaction Status Date / Time No Known Allergies Allergy Verified 10/26/22 09:30 Review of Systems Review of Systems: All systems reviewed & are unremarkable except as noted in HPI and below Constitutional: Constitutional: Denies body ache(s), Denies chills, Denies fatigue, Denies fever(s), Denies headache(s), Denies malaise and Denies weakness Eyes: Eyes: Denies blurry vision, Denies itchy eyes and Denies loss of vision ENT: Denies otalgia, Denies headache(s), Denies nasal congestion, Denies sinus pain and Denies sore throat Cardiovascular: Cardiovascular: Denies chest pain, Denies irregular heart rhythm and Denies dyspnea Respiratory: Respiratory: Reports cough and Denies dyspnea Gastrointestinal: Gastrointestinal: Denies abdominal pain, Denies diarrhea, Denies nausea and Denies vomiting Musculoskeletal: Musculoskeletal: Denies back pain, Denies myalgias and Denies arthralgias Integumentary/Breasts: Skin/Breast: Denies pruritus and Denies rash Neurologic: Denies headache(s), Denies loss of vision and Denies weakness Psychiatric: Psychiatric: Reports no additional psychiatric complaints Endocrine: Endocrine: Denies fatigue Allergic/Immunologic: Allergic/Immunologic: Denies itchy eyes PMFSH Past Medical History Medical History Anxiety BMI 23.0-23.9, adult Burn of abdominal wall Chronic pain Coccygeal pain, acute Constipation Degenerative, intervertebral disc, cervical Depression Dizziness GERD (gastroesophageal reflux disease) Shortness of Breath Sleep disturbance TIA (transient ischemic attack) Surgical History Surgical History No history of previous surgery Family History Family History Mother Ovarian ca Father COPD (chronic obstructive pulmonary disease) Sibling No problems noted. Social History Social History Social History: Patient states he smoked briefly as a teenager. Smoking status: Former smoker Tobacco type: cigarettes Second hand tobacco smoke exposure: Yes Additional smoking assessment comments: pt states that he only smoked from time to time and quit many years ago Alcohol intake: current Substance use: never Substance use type: does not use Lack of Transportation: No Lack of Food: Never True Current Housing: I Have Housing Concerned About Future Housing: No Difficulty Paying Gas/Electric Bills: No Difficulty Paying for Meds: No Currently Unemployed: No Education: High School Diploma/GED Difficulty w/ Childcare or Family Care: No Living arrangements: with family Additional living arrangements comments: Brother Occupation/Education: occupation Additional occupation/education comments: 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 Gender
[2022-10-26 09:26] VITALS: BP 184/96; PULSE 65; RESP 16; TEMP 36.7; O2SAT 99
== END 2022-10-26 10:41 | disposition home or self-care (01) ==
PROVIDERS: Emergency Provider Nurse Practitioner Family; PCP Family Medicine
DX: J40 Bronchitis, not specified as acute or chronic (principal); Z87.891 Personal history of nicotine dependence; K21.9 Gastro-esophageal reflux disease without esophagitis; M50.30 Other cervical disc degeneration, unspecified cervical region; Z86.73 Personal history of transient ischemic attack (TIA), and cerebral infarction without residual deficits; Z86.16 Personal history of COVID-19
CPT/HCPCS: 71046; 99213; G0463

== ENCOUNTER 2022-12-07 14:39 | Emergency (ER) | payer OTHER, SELFPAY ==
[2022-12-07 14:48] VITALS: BP 141/93; PULSE 72; RESP 16; TEMP 36.2; O2SAT 100
--- NOTE | 2022-12-07 14:51 | ED.GENADULT ---
HPI - General Adult General Chief complaint: Dental/Oral Stated complaint: Mouth pain Time Seen by Provider: 12/07/22 14:51 Source: patient Mode of arrival: ambulatory Limitations: no limitations History of Present Illness HPI narrative: 52-year-old male presents with complaint redness and swelling to right upper gum for approximately 1 week. States started after he was cut by a fishbone in a new brand of sardines he was trying. Reports that he had some mild bleeding that resolved quickly. Swelling and redness started 1 day later and has not improved. Does have a dentist but did not call for an appointment. Afebrile. Eating and drinking normally. All systems reviewed and negative except as noted above. Related Data Allergies Allergy/AdvReac Type Severity Reaction Status Date / Time No Known Allergies Allergy Verified 12/07/22 14:52 Review of Systems Review of Systems: CONSTITUTIONAL: Denies fever, chills, or sweats. EYES: Denies visual changes, redness, or discharge. ENT: Denies rhinorrhea, congestion, sore throat, or otalgia. Reports redness and swelling to right upper gums. CARDIOVASCULAR: Denies chest pain, palpitations, or edema. RESPIRATORY: Denies cough or dyspnea. GASTROINTESTINAL: Denies abdominal pain, nausea, vomiting, or diarrhea. GENITOURINARY: Denies dysuria or hematuria. SKIN: Denies rash or itching. MUSCULOSKELETAL: Denies back pain, joint pain, or myalgia. NEUROLOGIC: Denies headache, numbness, or weakness. PSYCHIATRIC: Denies anxiety or depression. All other systems reviewed are negative, except as documented in HPI. [facility] Past Medical History Medical History Anxiety BMI 23.0-23.9, adult Burn of abdominal wall Chronic pain Coccygeal pain, acute Constipation Degenerative, intervertebral disc, cervical Depression Dizziness GERD (gastroesophageal reflux disease) Shortness of Breath Sleep disturbance TIA (transient ischemic attack) Surgical History Surgical History No history of previous surgery Family History Family History Mother Ovarian ca Father COPD (chronic obstructive pulmonary disease) Sibling No problems noted. Social History Social History Social History: Patient states he smoked briefly as a teenager. Smoking status: Former smoker Tobacco type: cigarettes Second hand tobacco smoke exposure: Yes Additional smoking assessment comments: pt states that he only smoked from time to time and quit many years ago Alcohol intake: current Substance use: never Substance use type: does not use Lack of Transportation: No Lack of Food: Never True Current Housing: I Have Housing Concerned About Future Housing: No Difficulty Paying Gas/Electric Bills: No Difficulty Paying for Meds: No Currently Unemployed: No Education: High School Diploma/GED Difficulty w/ Childcare or Family Care: No Living arrangements: with family Additional living arrangements comments: Brother Occupation/Education: occupation Additional occupation/education comments: 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 Gender identity (if verbalized by the patient): Male Agree to blood products: Yes Comments At time of signature, agree with nursing past medical, surgical, social and family history. There is no relevant family history pertinent to the presenting complaint. Exam Narrative: GENERAL: This is a well-nourished, well-developed patient, in no apparent distress. HEAD: normocephalic, atraumatic. EYES: PERRL. Sclera clear/white. Vision is grossly intact. EARS: External ears normal NOSE: External nose normal MOUTH: see image for location of redness and
== END 2022-12-07 15:03 | disposition home or self-care (01) ==
PROVIDERS: Emergency Provider Nurse Practitioner Family; PCP Family Medicine
DX: K06.1 Gingival enlargement (principal); Z87.891 Personal history of nicotine dependence; K21.9 Gastro-esophageal reflux disease without esophagitis; Z86.73 Personal history of transient ischemic attack (TIA), and cerebral infarction without residual deficits
CPT/HCPCS: 99213; G0463

== ENCOUNTER 2023-01-14 19:34 | Emergency (ER) | payer OTHER, SELFPAY ==
[2023-01-14 19:41] VITALS: BP 108/77; PULSE 70; RESP 16; TEMP 35.9; O2SAT 98
[2023-01-14 19:44] VITALS: BP 108/77; PULSE 70; RESP 16; TEMP 35.9; O2SAT 98
--- NOTE | 2023-01-14 19:49 | ED.URI ---
HPI - URI/Sore Throat General Chief Complaint: Upper Respiratory Infection Stated Complaint: OVER USING VOICE/SINUS CONGESTION/DRAINAGE/ST History of Present Illness HPI Narrative: 52-year-old male presented for complaint of left throat pain as well as sinus congestion, pressure, and postnasal drainage for over 1 week. Also reports straining the voice when he yelled while watching football. He took [id number] sinus medication without relief. He is requesting someone look into the throat. Shortness wheezing nausea vomiting diarrhea, fevers or chills. Related Data Allergies Allergy/AdvReac Type Severity Reaction Status Date / Time No Known Allergies Allergy Verified 01/14/23 19:38 Review of Systems Review of Systems: CONSTITUTIONAL: Denies body aches, fever, chills, or sweats. EYES: Denies visual changes, redness, or discharge. ENT: Reports rhinorrhea, congestion, sore throat CARDIOVASCULAR: Denies chest pain, palpitations, or edema. RESPIRATORY: Denies dyspnea. GASTROINTESTINAL: Denies abdominal pain, nausea, vomiting, or diarrhea. SKIN: Denies rash, itching, or wounds. MUSCULOSKELETAL: Denies back pain, joint pain, or myalgia. NEUROLOGIC: Denies headache PMFSH Past Medical History Medical History Anxiety BMI 23.0-23.9, adult Burn of abdominal wall Chronic pain Coccygeal pain, acute Constipation Degenerative, intervertebral disc, cervical Depression Dizziness GERD (gastroesophageal reflux disease) Shortness of Breath Sleep disturbance TIA (transient ischemic attack) Surgical History Surgical History No history of previous surgery Family History Family History Mother Ovarian ca Father COPD (chronic obstructive pulmonary disease) Sibling No problems noted. Social History Social History Social History: Patient states he smoked briefly as a teenager. Smoking status: Former smoker Tobacco type: cigarettes Second hand tobacco smoke exposure: Yes Additional smoking assessment comments: pt states that he only smoked from time to time and quit many years ago Alcohol intake: current Substance use: never Substance use type: does not use Lack of Transportation: No Lack of Food: Never True Current Housing: I Have Housing Concerned About Future Housing: No Difficulty Paying Gas/Electric Bills: No Difficulty Paying for Meds: No Currently Unemployed: No Education: High School Diploma/GED Difficulty w/ Childcare or Family Care: No Living arrangements: with family Additional living arrangements comments: Brother Occupation/Education: occupation Additional occupation/education comments: 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 Gender identity (if verbalized by the patient): Male Agree to blood products: Yes Exam Narrative: GENERAL: well-appearing, no acute distress. EYES: conjunctivae clear ENT: Mucous membranes moist. TMs pearly nascimento with normal light reflex bilaterally; no tragal tenderness. Oropharynx not erythematous without lesions. Tonsils not enlarged and without exudate. No drooling, no hoarseness, no trismus, uvula midline. No tripod positioning, hot potato voice, or soft palate swelling. NECK: Supple. No lymphadenopathy CHEST: Clear to auscultation, breath sounds equal. No respiratory distress, speaks in full sentences. HEART: Regular rate and rhythm. No murmur heard. SKIN: Warm, dry, no rash. NEURO: Alert and oriented x3. Course Course Emergency Course: Patient is aware of diagnosis, understands and agrees to treatment plan. Anticipatory guidance given. Patient agrees to follow-up as directed and is aware of reasons to seek
== END 2023-01-14 19:58 | disposition home or self-care (01) ==
PROVIDERS: Emergency Provider Nurse Practitioner Family
DX: J06.9 Acute upper respiratory infection, unspecified (principal); Z87.891 Personal history of nicotine dependence; K21.9 Gastro-esophageal reflux disease without esophagitis; Z86.73 Personal history of transient ischemic attack (TIA), and cerebral infarction without residual deficits
CPT/HCPCS: 99213; G0463

== ENCOUNTER 2023-01-17 08:09 | Emergency (ER) | payer OTHER, SELFPAY ==
[2023-01-17 08:17] VITALS: BP 121/92; PULSE 60; RESP 16; TEMP 36.6; O2SAT 100
--- NOTE | 2023-01-17 08:33 | ED.SKABFB ---
HPI - Skin/Abscess/Foreign Bdy General Chief complaint: Skin/Abscess/Foreign Body Stated complaint: Sore on Head Time Seen by Provider: 01/17/23 08:24 Source: patient and RN notes reviewed Mode of arrival: ambulatory Limitations: no limitations History of Present Illness HPI narrative: Patient presents today complaining of a spot to his anterior forehead that has been present for 3-4 weeks. He is unsure if this is due to an injury although he believes he may have injured himself. Denies pain. He has been applying mupirocin without improvement. Denies drainage. Related Data Allergies Allergy/AdvReac Type Severity Reaction Status Date / Time No Known Allergies Allergy Verified 01/14/23 19:38 Review of Systems Review of Systems: CONSTITUTIONAL: Denies body aches, fever, chills, or sweats. EYES: Denies visual changes, redness, or discharge. ENT: Denies rhinorrhea, congestion, sore throat, or otalgia. CARDIOVASCULAR: Denies chest pain, palpitations, or edema. RESPIRATORY: Denies cough or dyspnea. GASTROINTESTINAL: Denies abdominal pain, nausea, vomiting, or diarrhea. GENITOURINARY: Denies dysuria or hematuria. SKIN: + lesion to scalp. MUSCULOSKELETAL: Denies back pain, joint pain, or myalgia. NEUROLOGIC: Denies headache, numbness, tingling, or weakness. PSYCH: Denies depression or anxiety. [facility] Past Medical History Medical History Anxiety BMI 23.0-23.9, adult Burn of abdominal wall Chronic pain Coccygeal pain, acute Constipation Degenerative, intervertebral disc, cervical Depression Dizziness GERD (gastroesophageal reflux disease) Shortness of Breath Sleep disturbance TIA (transient ischemic attack) Surgical History Surgical History No history of previous surgery Family History Family History Mother Ovarian ca Father COPD (chronic obstructive pulmonary disease) Sibling No problems noted. Social History Social History Social History: Patient states he smoked briefly as a teenager. Smoking status: Former smoker Tobacco type: cigarettes Second hand tobacco smoke exposure: Yes Additional smoking assessment comments: pt states that he only smoked from time to time and quit many years ago Alcohol intake: current Substance use: never Substance use type: does not use Lack of Transportation: No Lack of Food: Never True Current Housing: I Have Housing Concerned About Future Housing: No Difficulty Paying Gas/Electric Bills: No Difficulty Paying for Meds: No Currently Unemployed: No Education: High School Diploma/GED Difficulty w/ Childcare or Family Care: No Living arrangements: with family Additional living arrangements comments: Brother Occupation/Education: occupation Additional occupation/education comments: 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 Gender identity (if verbalized by the patient): Male Agree to blood products: Yes Comments At time of signature, I have reviewed and agree with nursing past medical, surgical, social and family history unless otherwise noted. Please see nursing chart for further information. There is no relevant family history pertinent to the presenting complaint Exam Narrative: GENERAL: Well-appearing, well-nourished, and in no acute distress. HEAD: Normocephalic, atraumatic. EYES: EOMI. No redness or drainage. Conjunctivae normal. ENT: Mucous membranes pink and moist. NECK: Normal AROM. CHEST: No respiratory distress. EXTREMITIES: Normal range of motion. No edema. SKIN: Warm, dry, no rash. Capillary refill normal. Normal skin turgor. 2x2mm brown lesion to midline anterior scalp. No farley
== END 2023-01-17 08:43 | disposition home or self-care (01) ==
PROVIDERS: Emergency Provider Nurse Practitioner
DX: L98.9 Disorder of the skin and subcutaneous tissue, unspecified (principal); Z87.891 Personal history of nicotine dependence; K21.9 Gastro-esophageal reflux disease without esophagitis; Z86.73 Personal history of transient ischemic attack (TIA), and cerebral infarction without residual deficits
CPT/HCPCS: 99211; G0463

== ENCOUNTER 2023-02-04 16:17 | Emergency (ER) | payer OTHER, SELFPAY ==
--- NOTE | ~2023-02-04 | XR_ITS ---
EXAMINATION: XR sacrum coccyx min 2V DATE: 02/04/2023 17:13 INDICATION: Coccygeal pain TECHNIQUE: Frontal, angled frontal and lateral views of the sacrum and coccyx were obtained. COMPARISON: CT abdomen pelvis dated 08/05/2022 FINDINGS: Alignment is normal and unchanged. No fracture. Minimal bilateral sacroiliac osteoarthritis. No erosi ons to suggest inflammatory sacroiliitis. A few phleboliths in the pelvis. IMPRESSION: 1. Minimal bilateral sacroiliac osteoarthritis. Otherwise unremarkable sacrococcygeal radiographs. Reviewed, dictated and finalized at location A. ER MIXER IMPRESSION: 1. Minimal bilateral sacroiliac osteoarthritis. Otherwise unremarkable sacrococ cygeal radiographs.
[2023-02-04 16:25] VITALS: BP 105/66; PULSE 63; RESP 20; TEMP 36.4; O2SAT 100
--- NOTE | 2023-02-04 17:21 | ED.BACK ---
HPI - Back Pain/Injury General Chief Complaint: Back Pain/Injury Stated Complaint: Butt pain;Feet pain Time Seen by Provider: 02/04/23 16:50 Source: patient Mode of arrival: ambulatory Limitations: no limitations History of Present Illness HPI Narrative: Jim is a 52-year-old male patient presenting to clinic today with complaints of left buttocks pain times 2-3 days. He denies any known injury. States he has not fallen, slipped, or strained his buttocks. States he contacted his primary care provider and they recommend he come in for a x-ray of his tailbone. Related Data Home Medications Medication Instructions Recorded Confirmed buspirone 10 mg tablet 10 mg PO DAILY 02/04/23 02/04/23 diclofenac sodium 75 mg 75 mg PO DAILY 02/04/23 02/04/23 tablet,delayed release sertraline 50 mg tablet 50 mg PO DAILY 02/04/23 02/04/23 tamsulosin 0.4 mg capsule 0.4 mg PO DAILY 02/04/23 02/04/23 Allergies Allergy/AdvReac Type Severity Reaction Status Date / Time No Known Allergies Allergy Verified 02/04/23 16:26 Review of Systems Review of Systems: Pertinent positives per HPI. Patient denies any fever, chills, rash, headache, visual changes, dizziness, cough, runny nose, sore throat, shortness of breath, chest pain, palpitations, nausea, vomiting, diarrhea, constipation, abdominal pain, or any urinary issues. [facility] Past Medical History Medical History Anxiety BMI 23.0-23.9, adult Burn of abdominal wall Chronic pain Coccygeal pain, acute Constipation Degenerative, intervertebral disc, cervical Depression Dizziness GERD (gastroesophageal reflux disease) Shortness of Breath Sleep disturbance TIA (transient ischemic attack) Surgical History Surgical History No history of previous surgery Family History Family History Mother Ovarian ca Father COPD (chronic obstructive pulmonary disease) Sibling No problems noted. Social History Social History Social History: Patient states he smoked briefly as a teenager. Smoking status: Former smoker Tobacco type: cigarettes Second hand tobacco smoke exposure: Yes Additional smoking assessment comments: pt states that he only smoked from time to time and quit many years ago Alcohol intake: current Substance use: never Substance use type: does not use Lack of Transportation: No Lack of Food: Never True Current Housing: I Have Housing Concerned About Future Housing: No Difficulty Paying Gas/Electric Bills: No Difficulty Paying for Meds: No Currently Unemployed: No Education: High School Diploma/GED Difficulty w/ Childcare or Family Care: No Living arrangements: with family Additional living arrangements comments: Brother Occupation/Education: occupation Additional occupation/education comments: 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 Gender identity (if verbalized by the patient): Male Agree to blood products: Yes Comments At the time of my signature, I reviewed and agree with the nursing past medical, surgical, social, and family history. There is no relevant family history pertinent to the patient complaint. Exam Narrative: General: Well-developed, well nourished, in no apparent distress Head: Normocephalic, atraumatic. Cardio: Regular rate and rhythm, s1 and s2 normal, no murmur appreciated. Resp: Clear to auscultation bilaterally, no rhonchi, rales, wheezing or rubs. Musculoskeletal: No deformity, tender to palpation over the left upper gluteal cleft, grossly normal range of motion, muscle strength strong and equal, peripheral pulse strong, no edema, no cyanosis, normal gait and station Cou
== END 2023-02-04 17:43 | disposition home or self-care (01) ==
PROVIDERS: Emergency Provider Nurse Practitioner Family; PCP Family Medicine
DX: M47.898 Other spondylosis, sacral and sacrococcygeal region (principal); Z79.899 Other long term (current) drug therapy; Z86.73 Personal history of transient ischemic attack (TIA), and cerebral infarction without residual deficits; Z87.891 Personal history of nicotine dependence
CPT/HCPCS: 72220; 99213; G0463

== ENCOUNTER 2023-03-01 13:41 | Outpatient (CLI) | payer OTHER, SELFPAY ==
--- NOTE | ~2023-03-01 | CT_ITS ---
EXAMINATION: CT soft tissue neck w con DATE: 03/01/2023 14:11 INDICATION: Dysphagia. Throat pain. TECHNIQUE: Computed tomography (CT) of the neck was performed with 75 mL Omnipaque-350 intravenous co ntrast. Automated exposure control and iterative reconstruction technique were employed. The dose-ash gth product was 492.37 mGy-cm. COMPARISON: None FINDINGS: There are no pathologically enlarged lymph nodes. There is 0% stenosis of the proximal inte rnal carotid arteries relative to normal distal artery lumen diameters. There are calcifications of t he palatine tonsils. The epiglottis is normal. There is minimal mucosal thickening in the paranasal s inuses. There are old healed bilateral rib fractures. There is severe cervical spondylosis. IMPRESSION: 1. No etiology for the patient's symptoms. Reviewed, dictated and finalized at location E. SETTER
== END 2023-03-01 13:42 | disposition home or self-care (01) ==
PROVIDERS: PCP Family Medicine; Visit Provider Otolaryngology
DX: R13.10 Dysphagia, unspecified (principal)
CPT/HCPCS: 70491; Q9967

== ENCOUNTER 2023-03-22 08:31 | Emergency (ER) | payer OTHER, SELFPAY ==
--- NOTE | ~2023-03-22 | XR_ITS ---
XR knee RT min 4V DATE: 03/22/2023 09:01 INDICATION: Fall. Medial knee pain for 2 to 3 days. TECHNIQUE: 4 views COMPARISON: None FINDINGS: No fracture or dislocation, periosteal reaction or bone destruction. No joint effusion. Katia nt spaces appear relatively well preserved. Minimal periarticular spurring of the patella. No radiopa que intra-articular loose body or chondrocalcinosis. IMPRESSION: Mild patellofemoral osteoarthritis No fracture or dislocation or joint effusion Reviewed, dictated and finalized at location B. STOCKKEEPER
[2023-03-22 08:37] VITALS: BP 126/84; PULSE 80; RESP 18; TEMP 36.3; O2SAT 98
--- NOTE | 2023-03-22 08:46 | ED.LOWEXIN ---
HPI - Extremity Injury (Lower) General Chief Complaint: Extremity Injury, Lower Stated Complaint: Injured Knee Time Seen by Provider: 03/22/23 08:46 Source: patient Mode of arrival: ambulatory Limitations: no limitations History of Present Illness HPI Narrative: Michael is a 52-year-old male patient presenting to the clinic with complaints of a right knee injury. He reports 2-3 days ago he fell on the medial aspect of his right knee. He has a old bruise to the area that is painful. He reports that is painful to walk and feels as though his knee may give out. Related Data Home Medications Medication Instructions Recorded Confirmed buspirone 10 mg tablet 10 mg PO DAILY 02/04/23 03/22/23 diclofenac sodium 75 mg 75 mg PO DAILY 02/04/23 03/22/23 tablet,delayed release sertraline 50 mg tablet 50 mg PO DAILY 02/04/23 03/22/23 tamsulosin 0.4 mg capsule 0.4 mg PO DAILY 02/04/23 03/22/23 Allergies Allergy/AdvReac Type Severity Reaction Status Date / Time No Known Allergies Allergy Verified 03/22/23 08:40 Review of Systems Review of Systems: Pertinent positives per HPI. Patient denies any fever, chills, rash, headache, visual changes, dizziness, cough, runny nose, sore throat, shortness of breath, chest pain, palpitations, nausea, vomiting, diarrhea, constipation, abdominal pain, or any urinary issues. [facility] Past Medical History Medical History Anxiety BMI 23.0-23.9, adult Burn of abdominal wall Chronic pain Coccygeal pain, acute Constipation Degenerative, intervertebral disc, cervical Depression Dizziness GERD (gastroesophageal reflux disease) Shortness of Breath Sleep disturbance TIA (transient ischemic attack) Surgical History Surgical History No history of previous surgery Family History Family History Mother Ovarian ca Father COPD (chronic obstructive pulmonary disease) Sibling No problems noted. Social History Social History Social History: Patient states he smoked briefly as a teenager. Smoking status: Former smoker Tobacco type: cigarettes Second hand tobacco smoke exposure: Yes Additional smoking assessment comments: pt states that he only smoked from time to time and quit many years ago Alcohol intake: current Substance use: never Substance use type: does not use Lack of Transportation: No Lack of Food: Never True Current Housing: I Have Housing Concerned About Future Housing: No Difficulty Paying Gas/Electric Bills: No Difficulty Paying for Meds: No Currently Unemployed: No Education: High School Diploma/GED Difficulty w/ Childcare or Family Care: No Living arrangements: with family Additional living arrangements comments: Brother Occupation/Education: occupation Additional occupation/education comments: 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 Gender identity (if verbalized by the patient): Male Agree to blood products: Yes Comments At the time of my signature, I reviewed and agree with the nursing past medical, surgical, social, and family history. There is no relevant family history pertinent to the patient complaint. Exam Narrative: General: Well-developed, well nourished, in no apparent distress Head: Normocephalic, atraumatic. Cardio: Regular rate and rhythm, s1 and s2 normal, no murmur appreciated. Resp: Clear to auscultation bilaterally, no rhonchi, rales, wheezing or rubs. Musculoskeletal: No deformity, old bruising noted to the medial right knee, tender to palpation over the medial right knee, no crepitus felt with flexion and extension of the right knee, negative anterior, posterior, negative Jeronimo's loraine
== END 2023-03-22 09:20 | disposition home or self-care (01) ==
PROVIDERS: Emergency Provider Nurse Practitioner Family; PCP Family Medicine
DX: S80.01XA Contusion of right knee, initial encounter (principal); W19.XXXA Unspecified fall, initial encounter; Z87.891 Personal history of nicotine dependence; K21.9 Gastro-esophageal reflux disease without esophagitis; Z86.73 Personal history of transient ischemic attack (TIA), and cerebral infarction without residual deficits; F41.9 Anxiety disorder, unspecified; F32.A Depression, unspecified
CPT/HCPCS: 73564; 99213; G0463

== ENCOUNTER 2023-04-19 16:33 | Emergency (ER) | payer OTHER, SELFPAY ==
[2023-04-19] VITALS (16 sets, daily range): BP systolic 97–137; BP diastolic 73–97; PULSE 58–89; RESP 13–22; TEMP 36.4; O2SAT 95–99
--- NOTE | ~2023-04-19 | CT_ITS ---
EXAMINATION: CT abdomen pelvis w con DATE: 04/19/2023 18:18 INDICATION: RUQ pain TECHNIQUE: Computed tomography (CT) of the abdomen and pelvis was performed with 100 mL Omnipaque-350 intravenous contrast. Automated exposure control and iterative reconstruction technique were employe d. The dose-length product was 501.38 mGy-cm. COMPARISON: CTA cap 08/05/2022. FINDINGS: Lower thorax: Bilateral basilar scarring Liver: Normal. Biliary/Gallbladder: Gallbladder is partially collapsed around a large gallstone. Gallbladder wall hy peremia and mild surrounding inflammatory change. No bile duct dilation. Pancreas: No mass or duct dilation. Spleen: Normal. Adrenals:No mass. Kidneys: No suspicious mass, obstructing stone, or hydronephrosis. Simple left midpole cyst. GI tract: Mild distal esophageal and gastric wall edema. No small or large bowel dilation. Normal colleen endix. Mesentery/Peritoneum: No ascites, mass, or free air. Retroperitoneum: No mass. Pelvis: Pelvic organs are within normal limits. Soft Tissues: Soft tissues and body wall unremarkable. Bones: No acute osseous finding. IMPRESSION: Mild esophagitis/gastritis. CT findings suggestive of acute cholecystitis. Reviewed, dictated and finalized at location K.
[2023-04-19 17:28] LABS: Basophils Percent Auto 0.4 % (0.2-1.2); Eosinophils Absolute Auto 0.1 K/mm3 (0-0.3); Eosinophils Percent Auto 1.6 % (0-4.4); Hematocrit 50.2 % (42.0-52.0); Hemoglobin 16.6 g/dL (14.0-18.0); Lymphocytes Absolute Auto 1.37 K/mm3 (0.9-3.2); Lymphocytes Percent Auto 24.6 % (18.3-44.2); Mean Corpuscular HGB Conc 33.1 g/dl (32-36); Mean Corpuscular Hemoglobin 29.5 pg (26-34); Mean Corpuscular Volume 89.3 fl (80-100); Mean Platelet Volume 9.4 fl (7.4-10.4); Monocytes Absolute Auto 0.4 K/mm3 (0.1-0.6); Monocytes Percent Auto 7.7 % (2.6-8.5); Neutrophils Absolute Auto 3.7 K/mm3 (1.3-6.7); Neutrophils Percent Auto 65.7 % (45.5-73.1); Platelet Count Result 219 k/mm3 (150-375); Red Blood Count 5.62 M/mm3 (4.6-6.20); Red Cell Distribution Width 12.4 % (11.5-14.5); White Blood Count 5.6 K/mm3 (4.5-10.0)
[2023-04-19 17:36] LABS: Appearance Urine Clear (Clear); Bilirubin Urine Negative (Negative); Blood Urine Negative (Negative); Color Urine Yellow (Yellow); Glucose Urine UA Negative (Negative); Ketones Urine Negative (Negative); Leukocyte Esterase Ur Negative LEU/UL (Negative); Nitrate Urine Negative (Negative); Protein Urine Negative (Negative); Specific Grav Ur 1.008 (1.001-1.035)
[2023-04-19 17:40] LABS: Add Urine Microscopic? NO
[2023-04-19] MEDS: ONDANSETRON INJ 4 MG/2 ML VIAL IV PUSH (17:40)
[2023-04-19] MEDS: MORPHINE SULFATE (*CRX) 4 MG/ML INJ IV PUSH (17:40)
[2023-04-19] MEDS: KETOROLAC 15 MG/ML VIAL (*BKC) IV PUSH (17:40)
--- NOTE | 2023-04-19 17:45 | PC.NURSE ---
Pt refused Morphine. States he doesn't tolerate pain meds well and has been told by his pmd that he is intolerant.
--- NOTE | 2023-04-19 17:45 | ED.GENADULT ---
HPI - General Adult General Chief complaint: Abdominal Pain Stated complaint: abd pain, concerned about GB Time Seen by Provider: 04/19/23 17:17 Source: patient Mode of arrival: ambulatory Limitations: no limitations History of Present Illness HPI narrative: This is a 52-year-old male with PMH of GERD who presents to the ED with chief complaint of acute on chronic right upper quadrant pain. Reports that he had seen a surgeon a year ago stated that he will need to have his gallbladder removed. Today states that his pain has become more constant over the last 3-4 weeks. Reports nausea and vomiting as well as significant pain with eating greasy foods. States the pain is always in the right upper quadrant. At this time the pain is somewhat subsided. Denies fevers, chills, problems with bowel movements. Related Data Home Medications Medication Instructions Recorded Confirmed buspirone 10 mg tablet 10 mg PO DAILY 02/04/23 03/22/23 diclofenac sodium 75 mg 75 mg PO DAILY 02/04/23 03/22/23 tablet,delayed release sertraline 50 mg tablet 50 mg PO DAILY 02/04/23 03/22/23 tamsulosin 0.4 mg capsule 0.4 mg PO DAILY 02/04/23 03/22/23 Allergies Allergy/AdvReac Type Severity Reaction Status Date / Time dairy Allergy Gastrointestinal Uncoded 04/19/23 17:24 Upset Review of Systems Review of Systems: All systems as dictated in [facility] Past Medical History Medical History Anxiety BMI 23.0-23.9, adult Burn of abdominal wall Chronic pain Coccygeal pain, acute Constipation Degenerative, intervertebral disc, cervical Depression Dizziness GERD (gastroesophageal reflux disease) Shortness of Breath Sleep disturbance TIA (transient ischemic attack) Surgical History Surgical History No history of previous surgery Family History Family History Mother Ovarian ca Father COPD (chronic obstructive pulmonary disease) Sibling No problems noted. Social History Social History Social History: Patient states he smoked briefly as a teenager. Smoking status: Former smoker Tobacco type: cigarettes Second hand tobacco smoke exposure: Yes Additional smoking assessment comments: pt states that he only smoked from time to time and quit many years ago Alcohol intake: current Substance use: never Substance use type: does not use Lack of Transportation: No Lack of Food: Never True Current Housing: I Have Housing Concerned About Future Housing: No Difficulty Paying Gas/Electric Bills: No Difficulty Paying for Meds: No Currently Unemployed: No Education: High School Diploma/GED Difficulty w/ Childcare or Family Care: No Living arrangements: with family Additional living arrangements comments: Brother Occupation/Education: occupation Additional occupation/education comments: 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 Gender identity (if verbalized by the patient): Male Agree to blood products: Yes Exam Narrative: GENERAL: Well-appearing, well-nourished, and in no acute distress. Resting comfortably. Conversational HEAD: Normocephalic, atraumatic. EYES: PERRLA and EOMI. ENT: Nares clear, no rhinorrhea or epistaxis. Mucous membranes moist. Oropharynx without tonsillar hypertrophy exudate or other lesions. NECK: Supple. No adenopathy or masses. CHEST: No respiratory distress. Clear to auscultation. No wheezes rales or rhonchi HEART: Regular rate and rhythm. No murmur heard. Normal peripheral pulses. ABDOMEN: Minimal right upper quadrant tenderness present. soft, otherwise nontender, nondistended, normal active bowel sounds. Negative left flank and right fl
[2023-04-19 17:57] LABS: Alanine Aminotransferase 16 U/L (6-50); Albumin Level 4.5 g/dL (3.5-5.1); Alkaline Phosphatase 50 U/L (38-126); Anion Gap 9 mmol/L (8-16); Aspartate Amino Transferase 30 U/L (17-59); Bilirubin,Total 2.1 mg/dL (0.2-1.3); Blood Urea Nitrogen 13 mg/dL (9-20); Calcium 9.1 mg/dL (8.4-10.2); Carbon Dioxide 23 mmol/L (22-30); Chloride 107 mmol/L (98-107); Estimated CRCL calculation 114 ml/min; Estimated Glomerular Filt Rate > 60; Glucose 110 mg/dL (65-110); Lipase 113 U/L (23-300); Potassium 4.6 mmol/L (3.4-5.0); Sodium 139 mmol/L (137-145)
--- NOTE | 2023-04-19 19:18 | PC.NURSE ---
Report received from Sherry, PT A+O X 4, no distress noted at this time.
== END 2023-04-19 20:06 | disposition home or self-care (01) ==
PROVIDERS: Emergency Medicine; Emergency Provider Physician Assistant; PCP Family Medicine
DX: K81.0 Acute cholecystitis (principal); K21.9 Gastro-esophageal reflux disease without esophagitis; M50.30 Other cervical disc degeneration, unspecified cervical region; G47.9 Sleep disorder, unspecified; F41.9 Anxiety disorder, unspecified; F32.A Depression, unspecified; Z86.73 Personal history of transient ischemic attack (TIA), and cerebral infarction without residual deficits; Z87.891 Personal history of nicotine dependence
CPT/HCPCS: 36415; 74177; 80053; 81003; 83690; 85025; 96374; 96375; 99284; J1885; J2270; J2405; Q9967

== ENCOUNTER 2023-05-31 14:51 | Emergency (ER) | payer OTHER, SELFPAY ==
[2023-05-31 14:56] VITALS: BP 112/91; PULSE 71; RESP 16; TEMP 36.3; O2SAT 98
[2023-05-31 15:01] VITALS: BP 112/91; PULSE 71; RESP 16; TEMP 36.3; O2SAT 98
--- NOTE | 2023-05-31 15:26 | ED.SKABFB ---
HPI - Skin/Abscess/Foreign Bdy General Chief complaint: Upper Respiratory Infection Stated complaint: skin lesion Time Seen by Provider: 05/31/23 15:12 Source: patient and RN notes reviewed Mode of arrival: ambulatory Limitations: no limitations History of Present Illness HPI narrative: Patient presents today with a 3 day history of a small scab to the left cheek. He is unsure of the cause, but states it may be from an insect bite. States that there is some significant swelling around this scab as well. He has not tried any OTC treatment prior to arrival. No itching or pain. Related Data Home Medications Medication Instructions Recorded Confirmed buspirone 10 mg tablet 10 mg PO DAILY 02/04/23 05/31/23 sertraline 50 mg tablet 50 mg PO DAILY 02/04/23 05/31/23 aspirin 325 mg tablet 325 mg PO DAILY 04/28/23 05/31/23 Allergies Allergy/AdvReac Type Severity Reaction Status Date / Time dairy Allergy Gastrointestinal Uncoded 05/31/23 14:58 Upset Review of Systems Review of Systems: CONSTITUTIONAL: Denies body aches, fever, chills, or sweats. EYES: Denies visual changes, redness, or discharge. ENT: Denies rhinorrhea, congestion, sore throat, or otalgia. CARDIOVASCULAR: Denies chest pain, palpitations, or edema. RESPIRATORY: Denies cough or dyspnea. GASTROINTESTINAL: Denies abdominal pain, nausea, vomiting, or diarrhea. GENITOURINARY: Denies dysuria or hematuria. SKIN: Denies rash, itching. +scab to left cheek MUSCULOSKELETAL: Denies back pain, joint pain, or myalgia. NEUROLOGIC: Denies headache, numbness, tingling, or weakness. PSYCH: Denies depression or anxiety. [facility] Past Medical History Medical History Anxiety BMI 23.0-23.9, adult Burn of abdominal wall Chronic pain Coccygeal pain, acute Constipation Degenerative, intervertebral disc, cervical Depression Dizziness GERD (gastroesophageal reflux disease) Shortness of Breath Sleep disturbance TIA (transient ischemic attack) Surgical History Surgical History No history of previous surgery Family History Family History Mother Ovarian ca Father COPD (chronic obstructive pulmonary disease) Sibling No problems noted. Social History Social History Social History: Patient states he smoked briefly as a teenager. Smoking status: Former smoker Tobacco type: cigarettes Second hand tobacco smoke exposure: Yes Additional smoking assessment comments: pt states that he only smoked from time to time and quit many years ago Alcohol intake: current Substance use: never Substance use type: does not use Lack of Transportation: No Lack of Food: Never True Current Housing: I Have Housing Concerned About Future Housing: No Difficulty Paying Gas/Electric Bills: No Difficulty Paying for Meds: No Currently Unemployed: No Education: High School Diploma/GED Difficulty w/ Childcare or Family Care: No Living arrangements: with family Additional living arrangements comments: Brother Occupation/Education: occupation Additional occupation/education comments: 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 Gender identity (if verbalized by the patient): Male Agree to blood products: Yes Comments At time of signature, I have reviewed and agree with nursing past medical, surgical, social and family history unless otherwise noted. Please see nursing chart for further information. There is no relevant family history pertinent to the presenting complaint Exam Narrative: GENERAL: Well-appearing, well-nourished, and in no acute distress. HEAD: Normocephalic, atraumatic. EYES: EOMI. No redness or dr
== END 2023-05-31 15:27 | disposition home or self-care (01) ==
PROVIDERS: Emergency Provider Nurse Practitioner; PCP Family Medicine
DX: L98.8 Other specified disorders of the skin and subcutaneous tissue (principal); Z87.891 Personal history of nicotine dependence; M47.812 Spondylosis without myelopathy or radiculopathy, cervical region; K21.9 Gastro-esophageal reflux disease without esophagitis; Z86.73 Personal history of transient ischemic attack (TIA), and cerebral infarction without residual deficits; F41.9 Anxiety disorder, unspecified; F32.A Depression, unspecified; Z79.82 Long term (current) use of aspirin
CPT/HCPCS: 99211; G0463

== ENCOUNTER 2023-06-12 15:38 | Emergency (ER) | payer OTHER, SELFPAY ==
--- NOTE | ~2023-06-12 | XR_ITS ---
EXAM: XR heel RT min 2V, XR heel LT min 2V DATE: 06/12/2023 16:18 HISTORY: bilateral heel pain. no known injury . COMPARISON: None available. FINDINGS: Normal mineralization. No fracture or dislocation. No lytic or blastic lesion. Joint space s are maintained. No erosion or periosteal change. Soft tissues within normal limits. IMPRESSION: Normal bilateral heel radiograph findings. Reviewed, dictated and finalized at location K. IMPRESSION: Normal bilateral heel radiograph findings.
--- NOTE | 2023-06-12 15:43 | ED.LOWEXIN ---
HPI - Extremity Injury (Lower) General Chief Complaint: Extremity Injury, Lower Stated Complaint: PAIN IN BOTH HEELS Time Seen by Provider: 06/12/23 16:10 Source: patient and RN notes reviewed Mode of arrival: ambulatory Limitations: no limitations History of Present Illness HPI Narrative: 52-year-old male presents with concern for bilateral heel pain. Reports history of neuropathy in his lower extremities. He reports he was having neuropathy pain when he decided to Bang his heels on the ground repeatedly to try to ease his neuropathy pain. He reports since then he has had ?severe? pain in his heels. He denies other injury or trauma. He denies warmth, swelling, bruising, open skin. He is concerned he has fractures and his heels that have gotten infected. MD complaint: foot injury Related Data Home Medications Medication Instructions Recorded Confirmed buspirone 10 mg tablet 10 mg PO DAILY 02/04/23 06/12/23 sertraline 50 mg tablet 50 mg PO DAILY 02/04/23 06/12/23 aspirin 325 mg tablet 325 mg PO DAILY 04/28/23 06/12/23 Allergies Allergy/AdvReac Type Severity Reaction Status Date / Time dairy Allergy Gastrointestinal Uncoded 06/12/23 15:50 Upset Review of Systems Review of Systems: CONSTITUTIONAL: Denies malaise, chills, or fever. SKIN: Denies rash or itching, open skin, laceration, abrasion, redness, warmth, swelling. MUSCULOSKELETAL: Reports bilateral heel pain NEUROLOGIC: Denies numbness, weakness All systems reviewed & are unremarkable except as noted in HPI and below PMFSH Past Medical History Medical History Anxiety BMI 23.0-23.9, adult Burn of abdominal wall Chronic pain Coccygeal pain, acute Constipation Degenerative, intervertebral disc, cervical Depression Dizziness GERD (gastroesophageal reflux disease) Shortness of Breath Sleep disturbance TIA (transient ischemic attack) Surgical History Surgical History No history of previous surgery Family History Family History Mother Ovarian ca Father COPD (chronic obstructive pulmonary disease) Sibling No problems noted. Social History Social History Social History: Patient states he smoked briefly as a teenager. Smoking status: Former smoker Tobacco type: cigarettes Second hand tobacco smoke exposure: Yes Additional smoking assessment comments: pt states that he only smoked from time to time and quit many years ago Alcohol intake: current Substance use: never Substance use type: does not use Lack of Transportation: No Lack of Food: Never True Current Housing: I Have Housing Concerned About Future Housing: No Difficulty Paying Gas/Electric Bills: No Difficulty Paying for Meds: No Currently Unemployed: No Education: High School Diploma/GED Difficulty w/ Childcare or Family Care: No Living arrangements: with family Additional living arrangements comments: Brother Occupation/Education: occupation Additional occupation/education comments: 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 Gender identity (if verbalized by the patient): Male Agree to blood products: Yes Comments At time of signature, agree with nursing past medical, surgical, social and family history. There is no relevant family history pertinent to the presenting complaint Exam Narrative: GENERAL: Well-appearing, well-nourished, and in no acute distress. HEAD: Normocephalic, atraumatic. EYES: PERRLA, conjunctivae clear NECK: Supple. CHEST: Speaks in full sentences. No respiratory distress. HEART: Regular rate and rhythm. Normal and equal peripheral pulses. EXTREMITIES: Bilateral lower extremities have
[2023-06-12 15:49] VITALS: BP 132/113; PULSE 72; RESP 16; TEMP 36; O2SAT 99
== END 2023-06-12 16:48 | disposition home or self-care (01) ==
PROVIDERS: Emergency Provider Nurse Practitioner; PCP Family Medicine
DX: S90.32XA Contusion of left foot, initial encounter (principal); S90.31XA Contusion of right foot, initial encounter; W22.09XA Striking against other stationary object, initial encounter; K21.9 Gastro-esophageal reflux disease without esophagitis; F41.9 Anxiety disorder, unspecified; F32.A Depression, unspecified; M47.812 Spondylosis without myelopathy or radiculopathy, cervical region; Z87.891 Personal history of nicotine dependence
CPT/HCPCS: 73650; 99214; G0463

== ENCOUNTER 2024-01-14 15:49 | Emergency (ER) | payer OTHER, SELFPAY ==
[2024-01-14 16:01] VITALS: BP 116/87; PULSE 83; RESP 16; TEMP 36.7; O2SAT 99
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
== END 2024-01-14 16:16 | disposition home or self-care (01) ==
PROVIDERS: Emergency Provider Nurse Practitioner Family; PCP Family Medicine
DX: T65.891A Toxic effect of other specified substances, accidental (unintentional), initial encounter (principal); T20.53XA Corrosion of first degree of chin, initial encounter; T32.0 Corrosions involving less than 10% of body surface
CPT/HCPCS: 99213; G0463